=== PATIENT | male | born 1960 | race Hispanic/Latino ===

== ENCOUNTER 2020-02-06 13:24 | Observation (INO) | payer BC ==
[~2020-02-06] VITALS: Ht 170.2 cm; Wt 80.8 kg
--- OUTSIDE RECORDS SUMMARY | 2020-02-06 13:28 | XMS REPORT | Summary of Care ---
Author Author [facility] Organization [facility] Address Unknown Phone Unavailable Care Team Providers Care Foundry Patternmaker Name Role Phone Hoang Buckner MD PCP Reason for Visit * Reason Comments Follow Up * Consult, Test & Treat (Routine) Referred By Contact Referred To Contact Status Reason Specialty Diagnoses / Procedures Iain Nichole NP [address], [address] [address] Iain Nichole NP [facility] [address] [address] Authorized Surgical Diagnoses Oncology / Malignant neoplasm Hematology and of jejunum Oncology 3 week fu P rocedures DC OFFICE CONSULTATION NEW/ESTAB PATIENT 60 MIN ESTABLISHED OFFICE VISIT Encounter Details Care Team Description Date Type Department Iain Nichole NP [address], [address] [id number] Follow Up 12/15/2019 Office Visit [facility] [address], [address] [phone] Allergies No Known Allergiesdocumented as of this encounter (statuses as of 12/16/2019) Medications End Date Status Medication Sig Dispensed Refills Start Date Active carvedilol (COREG) 12.5 Take 12.5 mg 0 08/06/201 MG tabletIndications: by mouth. 8 Jejunal adenocarcinoma (HCCode) Active omeprazole (PRILOSEC) 20 Take 1 Cap by 30 Cap 3 12/17/201 MG capsule mouth daily. 9 Active zolpidem (AMBIEN) 10 MG Take 1 Tab by 30 Tab 1 tablet mouth nightly 0 as needed for Sleep. 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 Chemotherapy-induced nausea 02/27/[address] 02/26/2017 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 documented as of this encounter Last Filed Vital Signs Reading Time Taken Comments Vital Sign 132/80 12/15/2019 12:23 PM UNPAID INTERN Blood Pressure 87 12/15/2019 12:23 PM UNPAID INTERN Pulse 37.2 C (98.9 F) 12/15/2019 12:23 PM UNPAID INTERN Temperature - - Respiratory Rate - - Oxygen Saturation - - Inhaled Oxygen Concentration 85.3 kg (188 lb) 12/15/2019 12:23 PM UNPAID INTERN Weight 167.6 cm (5' 6") 12/15/2019 12:23 PM UNPAID INTERN Height 30.34 12/15/2019 12:23 PM UNPAID INTERN Body Mass Index documented in this encounter Patient Instructions * Patient Instructions* Elizabet Buckner RN - 12/15/2019 11:30 AM UNPAID INTERN [facility] SECTION OF ONCOLOGY/HEMATOLOGY [phone] FAX [phone] Please note that all labs and or imaging results will be discussed at the next o ffice visit unless told otherwise. if a problem occurs after hours please contact our office and have physician solution professional paged [phone] Patient Instructions: (to be completed before next visit) Next visit in 4 weeks please do both Kapil and Alexo together Please don't hesitate to call if you have any questions or concerns before your appt. TELL US ABOUT YOUR EXPERIENCE You may receive an email or letter from [facility] via our partn er, Marcial Nunes. This is a survey about your experience today. Your feedback is important to us so we can improve. If any question does not apply to your visit, please leave it blank. Our goal is to ensure you have an exceptional experience at [facility] patricia. If for any reason you cannot rate your experience as very good, pl ease let a member of our staff know so we can make immediate improvements. Best Regards, Elizabet Buckner RN ID INTERN documented in this encounter Progress Notes * Michael Navarro MD - 12/15/2019 11:30 AM UNPAID INTERN Oncology Consult Reason for Consultation:jejunal carcinoma with metastatic disease. History of Present Illness:59y.o. man who presented to medical attention wit h complaints of epigastric pains relieved with vomiting and with unintentional w eight loss. Evaluation and interventions were not relieving his symptoms, until an upper GI series revealed persistent narrowing at the jejunum. On 01/29/17, Dr Eleno Morrell performed an exploratory laparotomy and small bowel resection, re moving what turned out to be an adenocarcinoma, primary to the jejunum. Pertinen t pathologic features include: wsqw-[id number]-[id number] differentiated histology; tumo r involvement in 3 of 7 examined nodes; both LV and PN invasions. The tumor was also found to be proficient in MMR proteinsby IHC, thus having an LANCE phenotyp e. On 02/13/17, the patient presented for medical oncology recommendations. Adjuvant recommendations were made with CAPEOX. He underwent baseline CT surveillance imaging on 03/06/17, which did not reveal evidence of cancer. With C3 of therapy, the patient had intense bloating and diarrhea. Capecitabin e was held; Lomotil and Imodium used and the symptoms improved. He resumed the therapy at 2+2 tablets (from 3+3) with better tolerance. He did have neuropathy that was progressive, necessitating dose reduction of the oxaliplatin with later cycles of therapy, and elimination entirely from C8. CT imaging for surveillance on 08/28/17 showed there was TIGRE but that a PVT deve loped, and for this, he initiated treatment on enoxaparin. Imaging in summer revealed peritoneal recurrence. Case was referred to Bon[facility] GONZALEZ and consensus was for treatment with peritoneal stripping and with HIPEC. He was so treated by Dr North Luong 07/24/18, and surgery was intended to be definit savi. Immediately post-op, CT imaging was only remarkable for peritracheal nodes, and these could be reactive.Subsequent CT on 09/15/18 found these to have res olved.His next CT was 11/14/18. While there was TIGRE, he had developed b/l PE a nd Xarelto therapy was started. He reported progressive bloating pain and thus his imaging was repeated early, o n 01/12/19. TIGRE was noted.This was the case for some subsequent evaluations. CT imaging on 07/28/19 demonstrated recurrent disease. This was with several live r lesions as well as a perirectal lesion. Kidney stone also was noted.When dis cussing on 08/05/19, discussed the option for systemic therapy to resume with FOL FIRI.However, the patient decided not to pursue therapy. He has good understan ding of implications of his decision. His next CT was 11/03/19 and this did show further disease progression. 12/15/2019: He consulted with Dr Dick today, came up with a thorough symptom management plan. Comfortable with plan for pain management and also nausea. Has regular BM. Cancer Diagnosis: Jejunal adenocarcinoma Cancer Treatment history: Surgical resection, 01/29/17 Adjuvant CAPEOX chemotherapy, C1D1 on 03/13/17. With C3 onward, capecibine dose changed to 2+2. With C7, oxaliplatin 50% dose reduced and held C8. Last dose was 08/07/17. Peritoneal stripping and with HIPEC 07/24/18 Review of Systems: Gen: See HPI Resp: No shortness of breath or wheezing. No cough or sputum. Cardio: No chest pain. No palpitations. No leg swelling. GI: See HPI Psych: Mood is appropriate All other systems reported as negative on ROS. Past Medical History: Past Medical History: Diagnosis Date Gastric cancer (HCCode) Port-A-Cath in place 09/30/2019 Past Surgical History: Past Surgical History: Procedure Laterality Date HX CHOLECYSTECTOMY 01/03/2017 HX SMALL INTESTINE SURGERY 01/29/2017 jejunum HX STOMACH SURGERY Social history: Social History Socioeconomic History Marital status: Spouse name: Not on file Number of children: Not on file Years of education: Not on file Highest education level: Not on file Occupational History Not on file Social Needs Financial resource strain: Not on file Food insecurity: Worry: Not on file Inability: Not on file Transportation needs: Medical: Not on file Non-medical: Not on file Tobacco Use Smoking status: Never Smoker Smokeless tobacco: Never Used Substance and Sexual Activity Alcohol use: No Drug use: No Sexual activity: Not on file Comment: , 3 children Lifestyle Physical activity: Days per week: Not on file Minutes per session: Not on file Stress: Not on file Relationships Social connections: Talks on phone: Not on file Gets together: Not on file Attends shinto service: Not on file Active member of club or organization: Not on file Attends meetings of clubs or organizations: Not on file Relationship status: Not on file Intimate partner violence: Fear of current or ex partner: Not on file Emotionally abused: Not on file Physically abused: Not on file Forced sexual activity: Not on file Other Topics Concerns: Not on file Social History Narrative Not on file Family history: No family history on file. No Known Allergies Current Outpatient Medications Medication Sig Dispense Refill carvedilol (COREG) 12.5 MG tablet Take 12.5 mg by mouth. fentanyl (DURAGESIC) 25 MCG/HR patch Place 25 mcg onto the skin every [address] 10 Patch 0 hydrocodone-acetaminophen (NORCO) 10-325 MG per tablet Take 1 Tab by mouth e very 4 hours as needed for Pain. 180 Tab 0 olanzapine (ZYPREXA) 2.5 MG tablet Take 1 Tab by mouth nightly. 30 Tab 3 omeprazole (PRILOSEC) 20 MG capsule Take 1 Cap by mouth daily. 30 Cap 3 ondansetron (ZOFRAN) 4 MG tablet Take 1 Tab by mouth every 6 hours as needed for Nausea. 90 Tab 3 zolpidem (AMBIEN) 10 MG tablet Take 1 Tab by mouth nightly as needed for Sle ep. 30 Tab 1 No current facility-administered medications for this visit. Physical Exam: Vital Signs Height: 5' 6" (167.6 cm) Weight - Scale: 188 lb (85.3 kg) Temp: 98.9 F (37.2 C) Temp Source: Oral Pulse: 87 Resting Heart Rate: 87 BP: 132/80 Patient Position: Sitting Cuff Size: regular BP Location: left arm Oxygen Therapy O2 Sat: 97 % O2 Flow Rate: Room Air Height and Weight BSA (Calculated - sq m): 1.99 sq meters BMI (Calculated): 30.4 Predicted Body Weight: 140.65 Body surface area is 1.99 meters squared. Wt Readings from Last 3 Encounters: 12/15/19 188 lb (85.3 kg) 12/15/19 188 lb 3.2 oz (85.4 kg) 11/25/19 193 lb (87.5 kg) ECO General: Alert, well appearing, no acute distress. Abdomen: Bowel sounds are normoactive.No palpable masses.S/NT/ND. No palpa ble nodularity Labs:All laboratory, radiology, and pathology studies have been reviewed. Assessment 59y.o. year old man underwent resection of a small bowel (jejunal) carcinoma o n 01/29/17. He completed adjuvant chemotherapy.Recurrence in 2018wastreated with peritoneal stripping + HIPEC. In July,, imaging again shows that there is recurrence, in the kenisha-rectal region as well as throughout the liver, and other peritoneal sites as well.This is not a curable recurrence and the p rognosis has been discussed. Chemotherapy, initially with FOLFIRI, is recommende d.He declines this, and thus focus has been on palliation. Management thus in conjunction with Dr Dick. Plan Jejunal carcinoma, metastatic recurrence - He is deferringchemotherapy - He consults with Dr Dick for symptomatic care This diagnosis and rationale for recommendations were reviewed with the patient to his apparent understanding and agreement.RTC 1 month to reassess symptoms; encouraged to call or MyChart message with anyquestions or concerns in the in terim. Michael Navarro MD, FACP [facility] #[id number] [employer] participation specialist [facility]ctor [facility] ID INTERN documented in this encounter Plan of Treatment Care Team Description Date Type Specialty Michael Navarro MD [address] [place] [address] [phone] 01/12/2020 Office Visit Hematology and Oncology Clover Dick MD [address] [place], [place] [phone] 01/12/2020 Office Visit Palliative Care 12, [facility] Chair [address], [address] [place], [place] [phone] 01/12/2020 Appointment Infusion Center Health Maintenance Due Date Last Done Comments TETANUS SHOT (ADULT) 1974 BMI FOLLOW UP PLAN 1977 HEPATITIS C SCREENING 1977 HIV SCREENING 1977 FLU VACCINE > 6 MONTHS 06/18/2019 08/07/2017 (Declined) COLON CANCER SCREENIN03/10/2022 03/10/2019 COLONOSCOPY documented as of this encounter Results Not on filedocumented in this encounter Visit Diagnoses Diagnosis Jejunal cancer (HCCode) - Primary Malignant neoplasm of jejunum Liver metastases (HCCode) Secondary malignant neoplasm of liver Peritoneal metastases (HCCode) Secondary malignant neoplasm of retroperitoneum and peritoneum documented in this encounter Insurance Type Payer Benefit Subscriber ID Effective Phone Address Plan / Dates Group [employer] [facility] BLUE xxxxxxxxxxxx 2018-P [address] [place] [id number] [facility] [facility] [id number] BCBS documented as of this encounter
--- OUTSIDE RECORDS SUMMARY | 2020-02-06 13:28 | XMS REPORT | Summary of Care ---
Author Author [facility] Organization [facility] Address Unknown Phone Unavailable Care Team Providers Care Emergency Room Physician Name Role Phone Hoang Buckner MD PCP Eleno Morrell MD Unavailable Reason for Referral * Infusion Clinic (Routine) Referred By Contact Referred To Contact Status Reason Specialty Diagnoses / Procedures Michael Navarro MD [address], [address] [place] [address] [facility] [address] [place] [address], [address] [place] [address] Pending New Treatment Infusion Center Diagnoses Infusion Jejunal cancer (HCCode) P rocedures [place] OFFICE OUTPATIENT NEW 30 MINUTES [place] DEXAMETHASONE SODIUM PHOS [place] - INJECTION, PALONOSETRON HCL, 25 MCG [place] FOSAPREPITANT 1 MG INJ [place] IRINOTECAN INJECTION [place] LEUCOVORIN CALCIUM INJECTION [place] FLUOROURACIL INJECTION [place] IRRIG IMPLANTED DRUG DELIVERY DEVICE * (Routine) Referred By Contact Referred To Contact Status Reason Specialty Diagnoses / Procedures Michael Navarro MD [address], [address] [place] [address] Pending Diagnoses Jejunal cancer (HCCode) P rocedures IR PORT PLACEMENT EQUAL OR > 5 YEARS Reason for Visit * Reason Comments Cancer * Consult, Test & Treat (Routine) Referred By Contact Referred To Contact Status Reason Specialty Diagnoses / Procedures Michael Navarro MD [address], [address] [place] [address] Michael Navarro MD [address] [place] [address] St 7th Floor, [address] [place] [address] Patient Oncology / Diagnoses Responsible Hematology and fu with scans Oncology fu with scans fu with scans, per bump list 07/22/19 P rocedures ESTABLISHED OFFICE VISIT EXT Encounter Details Care Team Description Date Type Department Michael Navarro MD [address] [facility] 7th Floor, [address] [place] [address] Cancer 08/05/2019 Office Visit [facility] Víctor Mancilla [facility] [address] [facility] 7th Floor, [address] [place] [address] Allergies No Known Allergiesdocumented as of this encounter (statuses as of 08/08/2019) Medications End Date Status Medication Sig Dispensed Refills Start Date Active carvedilol (COREG) 12.5 Take 12.5 mg 0 MG tabletIndications: by mouth. 8 Jejunal adenocarcinoma (HCCode) Active mirtazapine (REMERON) 15 Take 1 Tab by 30 Tab 0 201 MG tabletIndications: mouth 8 Jejunal adenocarcinoma nightly. (HCCode) Active metoclopramide (REGLAN) Take 1 Tab by 120 Tab 0 10 MG tablet mouth four 8 times daily. Active omeprazole (PRILOSEC) 20 Take 1 Cap by 30 Cap 3 MG capsule mouth daily. 9 Active Na Sulfate-K Sulfate-Mg [SUPREP] Take 1 Bottle 0 Sulf (SUPREP BOWEL PREP as directed. 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 Chemotherapy-induced nausea 02/27/[address] 02/26/2017 Jejunal cancer (HCCode) 02/13/2017 Cancer Staging: Pathologic: Stage IIIA (T3, N1, cM0) - Signed by Michael Navarro MD on 02/14/2017 documented as of this encounter (statuses as of 08/08/2019) Social History Date Tobacco Use Types Packs/Day [...] Signs Reading Time Taken Comments Vital Sign 148/74 08/05/2019 3:01 PM CDT Blood Pressure 69 08/05/2019 3:01 PM CDT Pulse 36.7 C (98 F) 08/05/2019 3:01 PM CDT Temperature - - Respiratory Rate - - Oxygen Saturation - - Inhaled Oxygen Concentration 89.3 kg (196 lb 12.8 oz) 08/05/2019 3:01 PM CDT Weight 167.6 cm (5' 6") 08/05/2019 3:01 PM CDT Height 31.76 08/05/2019 3:01 PM CDT Body Mass Index documented in this encounter Patient Instructions * Patient Instructions* Michael Navarro MD - 08/05/2019 4:00 PM CDT [facility] SECTION OF ONCOLOGY/HEMATOLOGY [phone] FAX [phone] Please note that all labs and or imaging results will be discussed at the next o ffice visit unless told otherwise. If a problem occurs after normal business hours, over the weekend, or on a holid ay, please contact our office at [phone] and have the physician golf tournament consultant pag ed. Patient Instructions: (to be completed before next visit) - [place]resson for pain prescribed - Will schedule chemotherapy; please review information Please go over mediport model Please give information about 5FU and irinotecan Please schedule mediport Please don't hesitate to call or to send a [employer] message if you have any quest ions or concerns before your next visit. [employer] messaging should only be used for non-urgent questions. MyChart is not checked after normal business hours, n or on weekends or holidays. Thank you, Michael Navarro MD documented in this encounter Progress Notes * Michael Navarro MD - 08/05/2019 4:00 PM CDT Oncology Consult Reason for Consultation:Surveillance for a jejunal carcinoma. History of Present Illness:59y.o. man who presented [...] the jejunum. Pertinen t pathologic features include: xeea-bd-yphalvnvdn differentiated histology; tumo r involvement in 3 [...] necessitating dose reduction of the oxaliplatin with late r cycles of therapy, and elimination entirely from [...] repeated early, o n 01/12/19. TIGRE was noted. This was the case for some subsequent evaluations. CT imaging on 07/28/19 demonstrated recurrent disease. This was with several live r lesions as well as a perirectal lesion. Kidney stone also was noted. 08/05/19:His imaging was focus of discussion and the images were reviewed with the patient. He notes he has had pain in the abdomen, upper and with some radiat ion. Twice, he has also felt this to be a spasm or twisting internally. No relat ion to food or bowels. No benefit from tramadol. Nothing causes the pain to bruna fest. Cancer Diagnosis: Jejunal adenocarcinoma Cancer Treatment history: Surgical resection, 01/29/17 Adjuvant CAPEOX chemotherapy, C1D1 on 03/13/17. With C3 onward, capecibine dose changed to 2+2. With C7, oxaliplatin 50% dose reduced and held C8. Last dose wa s 08/07/17. Peritoneal stripping and with HIPEC 07/24/18 Review of Systems: Gen: No fevers, chills, sweats, fatigue, weakness. HENT: No sore throat or mouth sores. No runny nose, sinus congestion, or ear ache. Eyes: No blurring of vision or visual changes. Neck: No new lumps or masses. Resp: No shortness of breath or wheezing. No cough or sputum. Cardio: No chest pain. No palpitations. No leg swelling. GI: See HPI : No dysuria or problems with urination. MS: No bone pain or joint stiffness. No arm swelling or edema. Skin: No new rashes, lumps or bumps. Neuro: No focal weaknes or altered sensation. Heme: No bleeding or easy bruisability. No adenopathy. Psych: Mood is better All other systems reported as negative on ROS. Past Medical History: Past Medical History: Diagnosis Date Gastric cancer (HCCode) Past Surgical History: Past Surgical History: Procedure [...] file Gets together: Not on file Attends baptist service: Not on file Active member of [...] MG tablet Take 12.5 mg by mouth. metoclopramide (REGLAN) 10 MG tablet Take 1 Tab by mouth four times daily. 1 20 Tab 0 mirtazapine (REMERON) 15 MG tablet Take 1 Tab by mouth nightly. 30 Tab 0 Na Sulfate-K Sulfate-Mg Sulf (SUPREP BOWEL PREP KIT) 17.5-3.13-1.6 GM/177ML SOLN [SUPREP] Take as directed. 1 Bottle 0 omeprazole (PRILOSEC) 20 MG capsule Take 1 Cap by mouth daily. 30 Cap 3 No current facility-administered medications for this visit. Physical Exam: There is no height or weight on file to calculate BSA. Wt Readings from Last 3 Encounters: 04/22/19 197 lb (89.4 kg) 02/05/19 195 lb (88.5 kg) 01/21/19 194 lb (88 kg) ECO General: Alert, well appearing, no acute distress. Abdomen: Bowel sounds are normoactive. No palpable masses. S/NT/ND. No palpable masses or organomegally Eyes : Conjunctivae and lids normal. The sclera is clear and anicteric Heart : Regular rate and rhythm, normal S1 and S2. No murmurs, gallops, or rubs. No extra sounds. Lungs : Normal respiratory effort. There is normal air entry with normal breath sounds. No rales, rhonchi, rubs or wheezes. Extr: No varicosities or ulceration. No clubbing, cyanosis, or edema. Skin : Warm and dry No rashes, lesions or ulcerations. Head : Normocephalic, atraumatic, no alopecia. ENT : No oral lesions. Oropharynx shows no mucositis, erythema or exudate Neck : Supple. No cervical adenopathy. Nodes : No axillary, supraclavicular, or cervical lymphadenopathy. Neurologic: The patient is oriented to time, place, and person. Muscle tone is n ormal.The gait was normal and there were no difficulties in coordination. Psych : Appropriate affect and behavior. Thought content is normal. Labs:All laboratory, radiology, and pathology studies have been reviewed. Assessment 59y.o. year old man underwent resection of a small bowel (jejunal) carcinoma o n 01/29/17. He completed adjuvant chemotherapy.Recurrence in 2018 was treated w ith peritoneal stripping + HIPEC. In July,, imaging again shows that t here is recurrence, in the kenisha-rectal region as well as throughout the liver. T his is not a curable recurrence and the prognosis was focus of discussion. Chemo therapy, initially with FOLFIRI, is recommended. Plan Jejunal carcinoma, metastatic recurrence -Recommend FOLFIRI; written drug information provided - Refer for mediport - Will plan to obtain TEMPUS testing and to obtain relevant tumor testing at [facility] t time This diagnosis and rationale for recommendations were reviewed with the patient to his apparent understanding and agreement.RTCto begin therapy;encouraged to call or MyChart message with anyquestions or concerns in the interim. Michael Navarro MD, FACP [facility] #[id number] Stable Handlighter Víctor Gilliland [facility] Cancer [facility] documented in this encounter Plan of Treatment Care Team Description Date Type Specialty Gen Vaughn MD [address] [address] [phone] 08/18/2019 Office Visit Gastroenterology Michael Navarro MD [address] [facility] 7th Floor, [address] [place] [address] [phone] 08/26/2019 Office Visit Hematology and Oncology Vickie Baird MD [address] [facility] [address] [place] [address] [phone] 09/04/2019 Office Visit Neurology Order Schedule Name Type Priority Associated Diagnoses 1 Occurrences starting 08/05/2019 until 08/05/2020 IR PORT PLACEMENT EQUAL Imaging Routine Jejunal cancer (HCCode) OR > 5 YEARS Order Schedule Name Type Priority Associated Diagnoses Ordered: 08/05/2019 AMB REF TO INFUSION Outpatient Routine Jejunal cancer (HCCode) CENTER Referral Health Maintenance Due Date Last Done Comments [...] metastases (HCCode) Secondary malignant neoplasm of liver Cancer associated pain Neoplasm related pain (acute) (chronic) documented in this encounter Insurance Type Payer Benefit Subscriber ID Effective Phone Address Plan / Dates Group [facility] BLUE [facility] BLUE xxxxxxxxxxxx 2018-P [address] resent [id number] [facility] [address] BCBS documented as of this encounter
--- OUTSIDE RECORDS SUMMARY | 2020-02-06 13:28 | XMS REPORT | Summary of Care ---
Author Author [facility] Organization [facility] Address Unknown Phone Unavailable Care Team Providers Care Senior Cyber Security Analyst Name Role Phone Hoang Buckner MD PCP Eleno Morrell MD Unavailable Reason for Visit * Reason Comments Follow Up * Consult, Test & Treat (Routine) Referred By Contact Referred To Contact Status Reason Specialty Diagnoses / Procedures Hoang Buckner MD [address] [place] [address] Michael Navarro MD [address], [address] [address] Closed Oncology / Diagnoses Hematology and Malignant neoplasm Oncology of small intestine, unspecified Malignant neoplasm of jejunum f/u in 3 weeks P rocedures [place] OFFICE OUTPATIENT VISIT 15 MINUTES ESTABLISHED OFFICE VISIT Encounter Details Care Team Description Date Type Department Michael Navarro MD [address], [address] [place], [place] [id number] Follow Up 08/26/2019 Office Visit [facility] Víctor Gilliland [facility] [address], [address] [place] [address] Allergies No Known Allergiesdocumented as of this encounter (statuses as of 08/29/2019) Medications End Date Status Medication Sig Dispensed Refills Start Date Active carvedilol (COREG) 12.5 Take 12.5 mg 0 08/06/201 MG tabletIndications: by mouth. 8 Jejunal adenocarcinoma (HCCode) Active mirtazapine (REMERON) 15 Take 1 Tab by 30 Tab 0 MG tabletIndications: mouth 8 Jejunal adenocarcinoma nightly. [...] as of this encounter (statuses as of 08/29/2019) Active Problems Problem Noted Date Goals of care, counseling/discussion 08/26/2019 Liver metastases [...] as of this encounter (statuses as of 08/29/2019) Social History Date Tobacco Use Types Packs/Day [...] Signs Reading Time Taken Comments Vital Sign 151/82 08/26/2019 1:51 PM CDT Blood Pressure 71 08/26/2019 1:51 PM CDT Pulse 36.7 C (98 F) 08/26/2019 1:51 PM CDT Temperature - - Respiratory Rate - - Oxygen Saturation - - Inhaled Oxygen Concentration 89.1 kg (196 lb 6.4 oz) 08/26/2019 1:51 PM CDT Weight - - Height 31.7 08/05/2019 3:01 PM CDT Body Mass Index documented in this encounter Patient Instructions * Patient Instructions* iMchael Navarro MD - 08/26/2019 2:00 PM CDT [facility] SECTION OF ONCOLOGY/HEMATOLOGY [phone] FAX [phone] Please note that all labs and or imaging results will be discussed at the next o ffice visit unless told otherwise. If a problem occurs after normal business hours, over the weekend, or on a holid ay, please contact our office at [phone] and have the physician education courses sales representative pag ed. Patient Instructions: (to be completed before next visit) - follow up in one month and can restart chemotherapy when ready Please don't hesitate to call or to send a [employer] message if you have any quest ions or concerns before your next visit. MyChart messaging should only be used for non-urgent questions. MyChart is not checked after normal business hours, n or on weekends or holidays. Thank you, Michael Navarro MD documented in this encounter Progress Notes * Michael Navarro MD - 08/26/2019 2:00 PM CDT Oncology Consult Reason for Consultation:Surveillance [...] the jejunum. Pertinen t pathologic features include: cyaf-ca-fbcmnwxhvr differentiated histology; tumo r involvement in 3 [...] perirectal lesion. Kidney stone also was noted. When disc ussing on 08/05/19, discussed the option for systemic therapy to resume with FOLF IRI. 08/26/19:The patient was set to begin therapy but he cancelled. In discussion linh cook he is fine. He has a good understanding about his disease but he notes he h as certain things he wants to do, and wants to defer therapy in the interim. Cancer Diagnosis: Jejunal adenocarcinoma Cancer Treatment history: [...] easy bruisability. No adenopathy. Psych: Mood is good All other systems reported as negative on [...] file Gets together: Not on file Attends mandaen service: Not on file Active member of [...] for this visit. Physical Exam: Vital Signs Weight - Scale: 196 lb 6.4 oz (89.1 kg) Temp: 98 F (36.7 C) Temp Source: Oral Pulse: 71 Resting Heart Rate: 71 BP: 151/82 Patient Position: Sitting Cuff Size: regular BP Location: left arm Oxygen Therapy O2 Sat: 99 % O2 Flow Rate: Room Air Pain Assessment Pain Scale: 0 Body surface area is 2.04 meters squared. Wt Readings from Last 3 Encounters: 08/26/19 196 lb 6.4 oz (89.1 kg) 08/05/19 196 lb 12.8 oz (89.3 kg) 04/22/19 197 lb (89.4 kg) ECO General: Alert, well appearing, no [...] n 01/29/17. He completed adjuvant chemotherapy.Recurrence in 2017 was treated w ith peritoneal stripping + HIPEC. In July,, imaging again shows that t here is recurrence, in the kenisha-rectal region as well as throughout the liver. T his is not a curable recurrence and the prognosis was focus of discussion. Chemo therapy, initially with FOLFIRI, is recommended. The patient is deferring his treatment. In consultation, he understands what the need is but also he is concerned about toxicity. It seems unlikely he will do c hemotherapy. His wants him to; will continue to discuss. Plan Jejunal carcinoma, metastatic recurrence -Recommend FOLFIRI; written drug information provided - He is deferring - Will follow closely, encourage him to start if he is amenable - Will plan to obtain TEMPUS testing and to obtain relevant tumor testing at miguel t time This diagnosis and rationale for recommendations were reviewed with the patient to his apparent understanding and agreement.RTC1 month;encouraged to call or [employer] message with anyquestions or concerns in the interim. Michael Navarro MD, [facility] #[id number] Cadastral Surveyormicrowave technician Víctor Gilliland [facility] documented in this encounter Plan of Treatment Care Team Description Date Type Specialty Vickie Baird MD [address] [facility] [address] [place] [address] [phone] 09/04/2019 Office Visit Neurology Michael Navarro MD [address] [facility] 7th Floor, [address] [place] [address] [phone] 09/23/2019 Office Visit Hematology and Oncology Michael Navarro MD [address] [facility] 7th Floor, [address] [place] [address] [phone] 09/30/2019 Office Visit Hematology and Oncology Health Maintenance Due Date Last Done Comments [...] metastases (HCCode) Secondary malignant neoplasm of liver Goals of care, counseling/discussion Other specified counseling documented in this encounter Insurance Type Payer Benefit Subscriber ID Effective Phone Address Plan / Dates Group [facility] [place] [employer] BLUE [employer] BLUE xxxxxxxxxxxx 2018-P [address] resent [id number] [facility] - [phone] [facility] documented as of this encounter
--- OUTSIDE RECORDS SUMMARY | 2020-02-06 13:28 | XMS REPORT ---
Author Author [facility] Address Unknown Phone Unavailable Care Team Providers Care Huc Ob Name Role Phone JAVONGeorges DuenasON Unavailable Unavailable Madi VAUGHN Unavailable Unavailable ANDREAS LUONG Unavailable Unavailable SYSTEM, NOT IN PROVIDER Unavailable Unavailable ADRIÁN MORRELL Unavailable Unavailable Problems This patient has no known problems. Allergies, Adverse Reactions, Alerts This patient has no known allergies or adverse reactions. Medications This patient has no known medications. Results Test Description Test Time Test Comments Text Results Atomic Results Result Comments CT, ABDOMEN 2019-11-03 11:34:00 Please compare to prior imaging FINAL REPORT CT of the abdomen with and without contrast, CT of chest and pelvis with contrast Clinical History: Jejunal cancer Technique: CT of the abdomen is performed without IV contrast, followed by CT of chest, abdomen and pelvis performed with intravenous contrast administration and without oral contrast administration. This exam was performed according to our departmental dose optimization program which includes automated exposure control, adjustment of the mA and/or kV according to patient's size and/or use of iterative reconstructive technique. Comparison Film: July 28, 2019, April 17, 2019, November 14, 2018 Discussion: Visualized thyroid gland is normal. There is a right-sided Port-A-Cath. No supraclavicular, axillary, mediastinal or hilar lymphadenopathy. Heart and pericardium are unremarkable. Mild scarring or atelectasis is present in both lungs. No new mass or consolidation. Central airways are patent. Multiple liver masses are compatible with metastasis, significantly progressed since the previous exam. A lesion at the dome adjacent to IVC for example, has grown from 1.5 cm to 3 cm. No biliary ductal dilatation. Status post cholecystectomy. The spleen, pancreas, are unremarkable. There is a 1 cm nodule abutting the left adrenal gland, which has become progressively larger compared to multiple prior studies, likely also metastatic deposit. Kidne ys demonstrate no mass or hydronephrosis. There is a 4 mm nonobstructive stone in the right kidney. No evidence of bowel obstruction. Patient is status post right hemicolectomy. Scattered foci of fat necrosis are again noted adjacent to the colon. In the pelvis, bladder is decompressed, prostate gland is marginally prominent. A centrally low density soft tissue nodule between the rectum and seminal vesicles has continued to grow, and now measures 3.1 x 2.7 cm, compared to 2.3 x 1.7 cm previously. No ascites. There are shotty nonspecific mesenteric lymph nodes. There is moderate vascular calcification. Osseous structures demonstrate degenerative changes. No destructive bony lesion is identified. There is a small left sided fat-containing flank hernia. Impression: Interval progression of hepatic, and pelvic metastatic deposits. A slowly growing 1 cm nodule abutting the left adrenal gland is likely metastatic as well. No new disease identified in the thorax. 4 mm nonobstructive stone in the right kidney. Signed: Shadi Mereditheport Verified Date/Time: 11/03/2019 11:34:46 Reading Location: [address] Ortho Consult Reading Room , CHEST, WITH IV CONTRAST 2019-11-03 11:34:00 Please compare to prior imaging FINAL REPORT CT of the abdomen with and without contrast, CT of chest and pelvis with contrast Clinical History: Jejunal cancer Technique: CT of the abdomen is performed without IV contrast, followed by CT of chest, abdomen and pelvis performed with intravenous contrast administration and without oral contrast administration. This exam was performed according to our departmental dose optimization program which includes automated exposure control, adjustment of the mA and/or kV according to patient's size and/or use of iterative reconstructive technique. Comparison Film: July 28, 2019, April 17, 2019, November 14, 2018 Discussion: Visualized thyroid gland is normal. There is a right-sided Port-A-Cath. No supraclavicular, axillary, mediastinal or hilar lymphadenopathy. Heart and pericardium are unremarkable. Mild scarring or atelectasis is present in both lungs. No new mass or consolidation. Central airways are patent. Multiple liver masses are compatible with metastasis, significantly progressed since the previous exam. A lesion at the dome adjacent to IVC for example, has grown from 1.5 cm to 3 cm. No biliary ductal dilatation. Status post cholecystectomy. The spleen, pancreas, are unremarkable. There is a 1 cm nodule abutting the left adrenal gland, which has become progressively larger compared to multiple prior studies, likely also metastatic deposit. Kidne ys demonstrate no mass or hydronephrosis. There is a 4 mm nonobstructive stone in the right kidney. No evidence of bowel obstruction. Patient is status post right hemicolectomy. Scattered foci of fat necrosis are again noted adjacent to the colon. In the pelvis, bladder is decompressed, prostate gland is marginally prominent. A centrally low density soft tissue nodule between the rectum and seminal vesicles has continued to grow, and now measures 3.1 x 2.7 cm, compared to 2.3 x 1.7 cm previously. No ascites. There are shotty nonspecific mesenteric lymph nodes. There is moderate vascular calcification. Osseous structures demonstrate degenerative changes. No destructive bony lesion is identified. There is a small left sided fat-containing flank hernia. Impression: Interval progression of hepatic, and pelvic metastatic deposits. A slowly growing 1 cm nodule abutting the left adrenal gland is likely metastatic as well. No new disease identified in the thorax. 4 mm nonobstructive stone in the right kidney. Signed: Shadi Meredith MDReport Verified Date/Time: 11/03/2019 11:34:46 Reading Location: [address] Ortho Consult Reading Room -CREATININE 2019-11-03 09:49:00 POC-CREATININE (LINDA) (test wees=0473) 1.0 mg/dL 0.6-1.3 TESTED AT [facility] [address] [facility] [address] [facility] [address] POC-EGFR (BEAKER) (test cnba=8730) 76 mL/min/1.73M2 ANG, CV ACCESS, [id number] 19:02:00IR PORT PLACEMENT.Reason for Exam:-> C17.1FINAL REPORT PROCEDURE: Venous Port Placement CLINICAL HISTORY: Malignancy [employer]INC[employer]AL: Richard Beck DO, JD COMMAND AND CONTROL SPECIALIST: Portions of this procedure were assisted by the resident/fellow/PA under the direct supervision of Richard Beck DO, JD. ANESTHESIA: Conscious sedation was provided by radiology nursing using constant hemodynamic monitoring for 45 Minutes. Versed IV 1 mg, Fentanyl IV 50 mcg. DEVICE: Bard single lumen slim 6 Fr PowerPort. DOSE INFORMATION - Quinn,r: 23.3 mGy Estimated Blood Loss: < 5cc Samples: None. PROCEDURE: The risks, benefits, and alternatives to the procedure were discussed with the patient. All questions were answered and written informed consent was obtained. A universal timeout was performed prior to starti ng the procedure. For Prevention of Central Venous Catheter (CVC)-Related Blood stream Infections all elements of maximal sterile barrier technique, hand hygien e, skin preparation and sterile ultrasound techniques were followed. Ultrasound of the right internal jugular vein demonstrated a patent and compressible vessel . An ultrasound image of the vessel was obtained. Lidocaine, 1% with Epi, was us ed for cutaneous anesthesia. Under ultrasound guidance the vessel was accessed w ith a micropuncture set upsized to a 0.035 inch 3J wire which was positioned in the inferior vena cava. Over the wire a Peel-Away sheath was placed. I next dire cted my attention to the anterior chest wall which was anesthetized with 2% lido malachi. Below the clavicle a small linear incision was made with a #15 blade and a subcutaneous pocket was created with blunt and sharp dissection. The catheter was connected to the port and the port was placed in the pocket. Through the poc ket a subcutaneous track was created with a metallic tunneling device and the po rt catheter was brought through the incision and out the venotomy site. The cath eter was cut to the appropriate length. Through the Peel-Away sheath the port ca theter was positioned with its tip at the right atrium under fluoroscopic guidan ce. The Peel-Away sheath was removed. The port was accessed and demonstrated exc ellent blood return and flushed easily. The port was instilled with 5 mL of hepa rin at 100 units per mL. The incision was then closed with 4-0 Vicryl subcuticul ar/deep suture. The skin at the venotomy site and the incision site were subsequ ently closed with Dermabond, Steri-Strips and sterile dressings. The patient arlene erated the procedure well and was returned to the holding area in stable conditi on. IMPRESSION:1. Patent right internal jugular vein. 2. Ultrasound and fluoro scopically guided placement of a right internal jugular single lumen port. The p ort is ready for use immediately. Signed: Richard Beck MDReport Verified Date/T larissa: 08/24/2019 19:02:58 Reading Location: [facility] P048 Angio Body Reading Room HROMBIN TIME/[id number] 10:36:00* Test Item Value Reference Range Comments PROTIME (BEAKER) (test xupj=340) 12.8 seconds 11.9-14.2 INR (BEAKER) (test fnyr=114) 1.0 <=5.9 Effective 04/15/2019: PT Reference Range ChangeNew: 11.9-14.2 Previous: 11.7-14. 7RECOMMENDED COUMADIN/WARFARIN INR THERAPY RANGESSTANDARD DOSE: 2.0-3.0 Include s: PROPHYLAXIS for venous thrombosis, systemic embolization; TREATMENT for venou s thrombosis and/or pulmonary embolus.HIGH RISK: Target INR is 2.5-3.5 for patie nts wiht mechanical heart valves.CBC W/PLT COUNT & AUTO [id number] 10:10:00* Test Item Value Reference Range Comments WHITE BLOOD CELL COUNT (BEAKER) (test cqrp=576) 5.0 K/ L 3.5-10.5 RED BLOOD CELL COUNT (BEAKER) (test ezne=185) 4.60 M/ L 4.63-6.08 HEMOGLOBIN (BEAKER) (test woyb=671) 13.6 GM/DL 13.7-17.5 HEMATOCRIT (BEAKER) (test gfqv=750) 41.6 % 40.1-51.0 MEAN CORPUSCULAR VOLUME (BEAKER) (test ltdk=952) 90.4 fL 79.0-92.2 MEAN CORPUSCULAR HEMOGLOBIN (BEAKER) (test tjlh=517) 29.6 pg 25.7-32.2 MEAN CORPUSCULAR HEMOGLOBIN CONC (BEAKER) (test jrfy=062) 32.7 GM/DL 32.3-36.5 RED CELL DISTRIBUTION WIDTH (BEAKER) (test qied=767) 13.1 % 11.6-14.4 PLATELET COUNT (BEAKER) (test kyqo=919) 169 K/CU MM 150-450 MEAN PLATELET VOLUME (BEAKER) (test hzqs=016) 9.5 fL 9.4-12.4 NUCLEATED RED BLOOD CELLS (BEAKER) (test tmma=105) 0 /100 WBC 0-0 NEUTROPHILS RELATIVE PERCENT (BEAKER) (test bpzv=192) 48 % LYMPHOCYTES RELATIVE PERCENT (BEAKER) (test xvgm=013) 37 % MONOCYTES RELATIVE PERCENT (BEAKER) (test sqqi=280) 9 % EOSINOPHILS RELATIVE PERCENT (BEAKER) (test tdux=606) 5 % BASOPHILS RELATIVE PERCENT (BEAKER) (test utjt=836) 1 % NEUTROPHILS ABSOLUTE COUNT (BEAKER) (test xqsv=531) 2.42 K/ L 1.78-5.38 LYMPHOCYTES ABSOLUTE COUNT (BEAKER) (test hpyg=449) 1.86 K/ L 1.32-3.57 MONOCYTES ABSOLUTE COUNT (BEAKER) (test tzqn=996) 0.47 K/ L 0.30-0.82 EOSINOPHILS ABSOLUTE COUNT (BEAKER) (test gnwl=655) 0.24 K/ L 0.04-0.54 BASOPHILS ABSOLUTE COUNT (BEAKER) (test dymr=129) 0.03 K/ L 0.01-0.08 IMMATURE GRANULOCYTES-RELATIVE PERCENT (BEAKER) (test typo=9418) 0 % 0-1 CT, CHEST, WITH IV [id number] 09:18:00Due in three months, repeated surveillance for jejunal cancer with met, now STEVEN.FINAL REPORT CT of the chest, with contrast 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 This exam was performed according to our departmental dose optimization program which includes automated exposure control, adjustment of the mA and/or kV according to patient's size and/or use of iterative reconstructive technique. Comparison Film: April 17, 2019, January 12, 2019 Discussion: Visualized thyroid gland is unremarkable. No supraclavicular, axillary, mediastinal or hilar lymphadenopathy. Heart and kenisha cardium are unremarkable. There is minimal scarring/atelectasis in both lungs. N o mass or consolidation. No bronchiectasis, or bronchial wall thickening. No eff usion. Liver is mildly fatty. Status post cholecystectomy. No biliary ductal dil atation. There are five new hypoenhancing liver lesions, ranging between 1.6 cm to 2.2 cm. Spleen, pancreas, adrenal glands are unremarkable. Kidneys demonstrat e no mass or hydronephrosis. There is a nonobstructive 4 mm stone at the lower p ole of the right kidney. Status post right hemicolectomy. No evidence of bowel o bstruction, or abnormal bowel wall thickening. There is colonic diverticulosis. Scattered foci of fat necrosis are seen adjacent to the colon. In the pelvis, bl adder is decompressed. Prostate and seminal vesicles are unremarkable. There is a larger soft tissue nodule between the rectum and seminal vesicles, now measuri ng 2.3 x 1.7 cm previously measuring 1.9 x 1.8 cm, also suspicious for metastati c deposit. There is no ascites. Moderate to severe vascular calcification. An se en is the fat-containing left flank hernia. Osseous structures demonstrate degen erative changes. No suspicious bony lesion is identified. Impression: Interval development of five hypoenhancing liver lesions, highly suspicious for metastasi s. Continued growth of a pelvic soft tissue nodule, compatible with metastatic p rogression. No new disease identified in the thorax. Nonobstructive 4 mm stone i n the right kidney. Signed: Shadi Meredith MDReport Verified Date/Time: 07/28/2019 09 :18:43 Reading Location: [facility] [id number] Ortho Consult Reading Room Electron [facility] signed by: SHADI MEREDITH M.D. 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 This exam was performed according to our departmental dose optimization program which includes automated exposure control, adjustment of the mA and/or kV according to patient's size and/or use of iterative reconstructive technique. Comparison Film: April 17, 2019, January 12, 2019 Discussion: Visualized thyroid gland is unremarkable. No supraclavicular, axillary, mediastinal or hilar lymphadenopathy. Heart and pericardium are unremarkable. There is minimal scarring/atelectasis in both lungs. No mass or consolidation. No bronchiectasis, or bronchial wall thickening. No effusion. Liver is mildly fatty. Status post cholecystectomy. No biliary ductal dil atation. There are five new hypoenhancing liver lesions, ranging between 1.6 cm to 2.2 cm. Spleen, pancreas, adrenal glands are unremarkable. Kidneys demonstrat e no mass or hydronephrosis. There is a nonobstructive 4 mm stone at the lower p ole of the right kidney. Status post right hemicolectomy. No evidence of bowel o bstruction, or abnormal bowel wall thickening. There is colonic diverticulosis. Scattered foci of fat necrosis are seen adjacent to the colon. In the pelvis, bl adder is decompressed. Prostate and seminal vesicles are unremarkable. There is a larger soft tissue nodule between the rectum and seminal vesicles, now measuri ng 2.3 x 1.7 cm previously measuring 1.9 x 1.8 cm, also suspicious for metastati c deposit. There is no ascites. Moderate to severe vascular calcification. An se en is the fat-containing left flank hernia. Osseous structures demonstrate degen erative changes. No suspicious bony lesion is identified. Impression: Interval development of five hypoenhancing liver lesions, highly suspicious for metastasi s. Continued growth of a pelvic soft tissue nodule, compatible with metastatic p rogression. No new disease identified in the thorax. Nonobstructive 4 mm stone i n the right kidney. Signed: Shadi Meredith MDReport Verified Date/Time: 07/28/2019 09 :18:43 Reading Location: [address] Ortho Consult Reading Room Electron ically signed by: SHADI MEREDITH M.D. on 07/28/2019 09:18 AM POCT-CREATININE 2019-07-28 07:26:00* Test Item Value Reference Range Comments POC-CREATININE (BEAKER) (test uxry=1305) 1.0 mg/dL 0.6-1.3 TESTED AT [place] [id number] [facility] [address] POC-EGFR (BEAKER) (test suji=4811) 76 mL/min/1.73M2 TISSUE [id number] 11:23:00Surgical Pathology Report Case: [id number] Authorizing Provider: Gen Vaughn MD Collected: 03/10/2019 1111 Ordering Location: [facility] Received: 03/10/2019 1336 SERVICES Pathologist: Kaylin Conway MD Specimens: A) - Small Bowel, NOS, FOREIGN BODY REMOVED, ? PATHOLOGY B) - Biopsy, Jejunum, BX C) - Duodenum, BX D) - Stomach, BX E) - Polyp, Colon - Cecum, POLYP TAKEN BY JUMBO FRCP F) - Biopsy, Terminal Ileum, BX G) - Colon Biopsy, Random, BX H) - Polyp, Colon - Sigmoid, POLYP TAKEN BY HOT SNARE A. SMALL BOWEL, BIOPSY: - DUODENAL MUCOSA WITH PRESERVED VILLOUS ARCHITECTURE, MILD INCREASE IN INTRAEPITHELIAL LYMPHOCYTES ( SEE COMMENT)B. JEJUNUM, BIOPSY: - JEJUNAL MUCOSA WITH PRESERVED VILLOUS ARCHITECTUREC. DUODENUM, BIOPSY: - DUODENAL MUCOSA WITH PRESERVED VILLOUS ARCHITECTURE - NO SIGNIFICANT HISTOPATHOLOGICAL CHANGED. STOMACH, BIOPSY: - BODY AND ANTRUM TYPE MUCOSA WITH REACTIVE GASTROPATHY - SEPARATE FRAGMENT OF INTESTINAL TYPE MUCOSA PRESENT - SEE COMMENT - WARTHIN-STARRY STAIN NEGATIVE FOR H. PYLORI-LIKE ORGANISMS - IMMUNOHISTOCHEMICAL STAIN FOR H. PYLORI IS NEGATIVE E. CECUM POLYP, JUMBO FORCEPS BIOPSY: - TUBULAR ADENOMAF. TERMINAL ILEUM, BIOPSY: - ILEAL MUCOSA WITH PRESERVED VILLOUS ARCHITECTURE - NO SIGNIFICANT HISTOPATHOLOGICAL CHANGEG. COLON, RANDOM BIOPSY: - COLONIC MUCOSA WITH NO SIGNIFICANT HISTOPATHOLOGICAL CHANGEH. SIGMOID COLON POLYP, HOT SNARE POLYPECTOMY: - TRADITIONAL SERRATED ADENOMA - CAUTERIZED EDGE IS FOCALLY POSITIVE OF LOW GRADE DYSPLASIA SJ/pl Signing P athologist Direct Phone Line: [phone] signed by Kaylin Conway MD on 03/12/2019 at 11:23 AMPart A. The features can occur in mild celiac disease as well as other diverse settings such as other food sensitivities, humoral im mune deficiencies, morbid obesity, infectious enteritis, Helicobacter pylori gas tritis, drugs and autoimmune disorders; however, no specific cause is evident in many cases. Clinical correlation is recommended. No parasite or dysplasia noted Part A-D, E, G : Negative for dysplasiaPart G: no features of microscopic coliti s noted.34874 x8; 29312 x1; 22254 x1A. Small bowel, NOS, foreign body removed ? Pathology; B. Jejunum biopsy; C. Duodenum biopsy; D. Stomach biopsy; E. Cecum po lyp; F. Terminal ileum biopsy; G. Random colon biopsy; H. Sigmoid colon polypPar t A is received labeled "small bowel" and consists of three irregular fragments of adamson-brown tissue aggregating to 1.0 x 0.4 x 0.2 cm. The specimen is filtered and is submitted in toto in cassette A.Part B is received labeled "jejunum biops y" and consists of two irregular fragments of adamson-brown tissue aggregating to 0. 5 x 0.3 x 0.2 cm. The specimen is filtered and is submitted in toto in cassette B. Part C is received labeled "duodenum" and consists of two irregular fragments of adamson-brown tissue aggregating to 0.6 x 0.3 x 0.3 cm. The specimen is filtered and is submitted in toto in cassette C. Part D is received labeled "sotmach" and consists of three irregular fragments of adamson-brown tissue aggregating to 0.7 x 0.2 x 0.2 cm. The specimen is filtered and is submitted in toto in cassette D .Part E is received labeled "cecum polyp" and consists of a 0.5 x 0.4 x 0.3 cm t an-brown polypoid tissue. The specimen is filtered and is submitted in toto in c assette E. Part F is received labeled "terminal ileum biopsy" and consists of ir regular fragments of adamson-pink tissue aggregating to 1.3 x 0.2 x 0.2 cm. The spec imen is filtered and is submitted in toto in cassette F.Part G is received label ed "colon biopsy" and consists of multiple fragments of adamson-brown tissue aggrega ting to 2.0 x 0.4 x 0.3 cm. The specimen is filtered and is submitted in toto in cassette G. Part H is received labeled "sigmoid colo polyp" and consists of a 0 .9 x 0.5 x 0.4 cm adamson-pink polypoid tissue. The base of the polyp is inked black and the specimen is bisected and submitted entirely in cassette H. AH/plPerform edThe interpretation of this case included the use of immunohistochemistry or sp ecial stains. Immunohistochemistry technical testing was performed at [facility] where it was developed and its perf ormance characteristics were determined. It has not been cleared or approved by the U.S. Food and Drug Administration. The FDA has determined that such clearanc e or approval is not necessary. The test is used for clinical purposes. It shoul d not be regarded as investigational or for research. This laboratory is certifi ed under the Clinical Laboratory Improvement Amendments of 1988 (CLIA-88) as shantanu lified to perform high complexity clinical laboratory testing.CT, PELVIS, WITH IV [id number] 10:48:00FINAL REPORT EXAMINATION: CT of the chest, abdomen and pelvis with and without contrast. TECHNIQUE: Spiral CT images of the chest, abdomen and pelvis were performed from the lung apices to the lesser trochanters before and after the intravenous administration of 150 cc of Omnipaque 300 and the oral administration of water. CT images of the chest and pelvis were performed postcontrast. CT images of the abdomen were performed in precontrast, arterial, venous and delayed phases. Coronal and sagittal reformatted images were obtained. 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 Now with pain and obstructive symptoms DISCUSSION: CHEST: LINES/TUBES: None. LUNGS AND AIRWAYS: Stable bilateral lower lobe, lingular and right middle lobe linear opacities consistent with scarring.No pulmonary nodules, masses or consolidation.Central airways are clear, without endobronchial lesions.Previously visualized filling defects consistent with pulmonary emboli are not seen in the current exam. PLEURA: The pleural spaces are clear. HEART AND MEDIASTINUM: Thyroid is unremarkable. Heart size is normal. No pericardial effusion. Aorta is nonaneurysmal. Atherosclerotic calcification of the coronary arteries and thoracic aortic arch. LYMPH NODES: No mediastinal, hilar or axill freya adenopathy. BONES AND SOFT TISSUES: No bony destructive lesions. No soft ti ssue abnormalities. ABDOMEN/PELVIS: HEPATOBILIARY: Decreased attenuation of th e hepatic parenchyma compared to the spleen, consistent with steatosis. No focal hepatic lesions. No intra or extrahepatic biliary ductal dilation. GALLBLADDER: Cholecystectomy clips. SPLEEN: No splenomegaly. PANCREAS: No focal masses or ductal dilatation. ADRENALS: No adrenal nodules. KIDNEYS/URETERS: Stable 4-5 mm nonobstructing calculus in the right inferior pole (precontrast image 39).No other renal or ureteral calculi, hydronephrosis or obstruction. Stable 0.9 cm p artially exophytic fluid density lesion in the left inferior pole (venous image 105), consistent with a simple cyst. Stable 2.6 cm left peripelvic cyst (delayed image 50).. PELVIC ORGANS/BLADDER: Bladder is decompressed but grossly unremark able. Prostate is unremarkable. PERITONEUM/RETROPERITONEUM: No free air or fluid . Stable 0.7 cm nodule anterior to the left edgar of the diaphragm (previously me asured 1.3 x 0[address] dated August 06, 2018). LYMPH NODES: No intra-abdom inal,retroperitoneal, pelvic or inguinal lymphadenopathy. VESSELS: The celiac tr unk,superior and inferior mesenteric and bilateral renal arteries are patent T he portal, superior mesenteric and splenic veins are patent. Atherosclerotic fab cification of the abdominal aorta, aortic branches and bilateral iliac vessels. GI TRACT: Stable postoperative changes consistent with right colectomy, with int act anastomotic suture. No wall thickening, dilation or evidence of obstruction. No pericolonic inflammatory changes. Scattered diverticula are noted in the sig moid colon, with the largest measuring approximately 1.5 cm in diameter (coronal image 54), stable since prior exam. BONES AND SOFT TISSUES: No aggressive lytic lesions. Degenerative disc changes in the thoracic and lumbosacral spine. Stable 2.1 cm fat-containing anterior abdominal wall hernia (venous image 127). IMPRE SSION: 1. Stable postoperative changes, without evidence of dilation or obstruc tion. 2. Stable subcentimeter node anterior to the left edgar of the diaphragm. N o other adenopathy or evidence of metastatic disease in the chest, abdomen or pe lvis. 3. Stable 4-5 mm nonobstructing calculus in the right inferior pole. 4. Pr eviously visualized bilateral pulmonary emboli are not seen in the current exam, however, exam is not tailored for evaluation of pulmonary emboli. 5. Hepatic st eatosis. Signed: Mahesh Hernandez MDR[facility] Verified Date/Time: 01/12/2019 10:48: 45 , CHEST, WITH IV [id number] 10:48:00FINAL REPORT EXAMINATION: CT of the chest, abdomen and pelvis with and without contrast. TECHNIQUE: Spiral CT images of the chest, abdomen and pelvis were performed from the lung apices to the lesser trochanters before and after the intravenous administration of 150 cc of Omnipaque 300 and the oral administration of water. CT images of the chest and pelvis were performed po stcontrast. CT images of the abdomen were performed in precontrast, arterial, ve nous and delayed phases. Coronal and sagittal reformatted images were obtained. 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 Now with pain and obstructive symptoms DISCUSSION: CHEST: LINES/TUBES: None. LUNGS AND AIRWAYS: Stable bilateral lower lobe, li ngular and right middle lobe linear opacities consistent with scarring.No pulmon freya nodules, masses or consolidation.Central airways are clear, without endobron chial lesions.Previously visualized filling defects consistent with pulmonary em boli are not seen in the current exam. PLEURA: The pleural spaces are clear. HEA RT AND MEDIASTINUM: Thyroid is unremarkable. Heart size is normal. No pericardia l effusion. Aorta is nonaneurysmal. Atherosclerotic calcification of the coronar y arteries and thoracic aortic arch. LYMPH NODES: No mediastinal, hilar or axill freya adenopathy. BONES AND SOFT TISSUES: No bony destructive lesions. No soft ti ssue abnormalities. ABDOMEN/PELVIS: HEPATOBILIARY: Decreased attenuation of th e hepatic parenchyma compared to the spleen, consistent with steatosis. No focal hepatic lesions. No intra or extrahepatic biliary ductal dilation. GALLBLADDER: Cholecystectomy clips. SPLEEN: No splenomegaly. PANCREAS: No focal masses or ductal dilatation. ADRENALS: No adrenal nodules. KIDNEYS/URETERS: Stable 4-5 mm nonobstructing calculus in the right inferior pole (precontrast image 39).No other renal or ureteral calculi, hydronephrosis or obstruction. Stable 0.9 cm p artially exophytic fluid density lesion in the left inferior pole (venous image 105), consistent with a simple cyst. Stable 2.6 cm left peripelvic cyst (delayed image 50).. PELVIC ORGANS/BLADDER: Bladder is decompressed but grossly unremark able. Prostate is unremarkable. PERITONEUM/RETROPERITONEUM: No free air or fluid . Stable 0.7 cm nodule anterior to the left edgar of the diaphragm (previously me asured 1.3 x 0.[address] dated August 06, 2018). LYMPH NODES: No intra-abdom inal,retroperitoneal, pelvic or inguinal lymphadenopathy. VESSELS: The celiac tr unk,superior and inferior mesenteric and bilateral renal arteries are patent T he portal, superior mesenteric and splenic veins are patent. Atherosclerotic fab cification of the abdominal aorta, aortic branches and bilateral iliac vessels. GI TRACT: Stable postoperative changes consistent with right colectomy, with int act anastomotic suture. No wall thickening, dilation or evidence of obstruction. No pericolonic inflammatory changes. Scattered diverticula are noted in the sig moid colon, with the largest measuring approximately 1.5 cm in diameter (coronal image 54), stable since prior exam. BONES AND SOFT TISSUES: No aggressive lytic lesions. Degenerative disc changes in the thoracic and lumbosacral spine. Stable 2.1 cm fat-containing anterior abdominal wall hernia (venous image 127). IMPRE SSION: 1. Stable postoperative changes, without evidence of dilation or obstruc tion. 2. Stable subcentimeter node anterior to the left edgar of the diaphragm. N o other adenopathy or evidence of metastatic disease in the chest, abdomen or pe lvis. 3. Stable 4-5 mm nonobstructing calculus in the right inferior pole. 4. Pr eviously visualized bilateral pulmonary emboli are not seen in the current exam, however, exam is not tailored for evaluation of pulmonary emboli. 5. Hepatic st eatosis. Signed: Mahesh Hernandez MDReport Verified Date/Time: 01/12/2019 10:48: 44 , ABDOMEN, WITHOUT / WITH IV [id number] 10:48:00FINAL REPORT EXAMINATION: CT of the chest, abdomen and pelvis with and without contrast. TECHNIQUE: Spiral CT images of the chest, abdomen and pelvis were performed from the lung apices to the lesser trochanters before and after the intravenous administration of 150 cc of Omnipaque 300 and the oral administration of water. CT images of the chest and pelvis were performed po stcontrast. CT images of the abdomen were performed in precontrast, arterial, ve nous and delayed phases. Coronal and sagittal reformatted images were obtained. 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 Now with pain and obstructive symptoms DISCUSSION: CHEST: LINES/TUBES: None. LUNGS AND AIRWAYS: Stable bilateral lower lobe, li ngular and right middle lobe linear opacities consistent with scarring.No pulmon freya nodules, masses or consolidation.Central airways are clear, without endobron chial lesions.Previously visualized filling defects consistent with pulmonary em boli are not seen in the current exam. PLEURA: The pleural spaces are clear. HEA RT AND MEDIASTINUM: Thyroid is unremarkable. Heart size is normal. No pericardia l effusion. Aorta is nonaneurysmal. Atherosclerotic calcification of the coronar y arteries and thoracic aortic arch. LYMPH NODES: No mediastinal, hilar or axill freya adenopathy. BONES AND SOFT TISSUES: No bony destructive lesions. No soft ti ssue abnormalities. ABDOMEN/PELVIS: HEPATOBILIARY: Decreased attenuation of th e hepatic parenchyma compared to the spleen, consistent with steatosis. No focal hepatic lesions. No intra or extrahepatic biliary ductal dilation. GALLBLADDER: Cholecystectomy clips. SPLEEN: No splenomegaly. PANCREAS: No focal masses or ductal dilatation. ADRENALS: No adrenal nodules. KIDNEYS/URETERS: Stable 4-5 mm nonobstructing calculus in the right inferior pole (precontrast image 39).No other renal or ureteral calculi, hydronephrosis or obstruction. Stable 0.9 cm p artially exophytic fluid density lesion in the left inferior pole (venous image 105), consistent with a simple cyst. Stable 2.6 cm left peripelvic cyst (delayed image 50).. PELVIC ORGANS/BLADDER: Bladder is decompressed but grossly unremark able. Prostate is unremarkable. PERITONEUM/RETROPERITONEUM: No free air or fluid . Stable 0.7 cm nodule anterior to the left edgar of the diaphragm (previously me asured 1.3 x 0.[address] dated August 06, 2018). LYMPH NODES: No intra-abdom inal,retroperitoneal, pelvic or inguinal lymphadenopathy. VESSELS: The celiac tr unk,superior and inferior mesenteric and bilateral renal arteries are patent T he portal, superior mesenteric and splenic veins are patent. Atherosclerotic fab cification of the abdominal aorta, aortic branches and bilateral iliac vessels. GI TRACT: Stable postoperative changes consistent with right colectomy, with int act anastomotic suture. No wall thickening, dilation or evidence of obstruction. No pericolonic inflammatory changes. Scattered diverticula are noted in the sig moid colon, with the largest measuring approximately 1.5 cm in diameter (coronal image 54), stable since prior exam. BONES AND SOFT TISSUES: No aggressive lytic lesions. Degenerative disc changes in the thoracic and lumbosacral spine. Stable 2.1 cm fat-containing anterior abdominal wall hernia (venous image 127). IMPRE SSION: 1. Stable postoperative changes, without evidence of dilation or obstruc tion. 2. Stable subcentimeter node anterior to the left edgar of the diaphragm. N o other adenopathy or evidence of metastatic disease in the chest, abdomen or pe lvis. 3. Stable 4-5 mm nonobstructing calculus in the right inferior pole. 4. Pr eviously visualized bilateral pulmonary emboli are not seen in the current exam, however, exam is not tailored for evaluation of pulmonary emboli. 5. Hepatic st eatosis. Signed: Mahesh Hernandez MDReport Verified Date/Time: 01/12/2019 10:48: 45 -[id number] 08:26:00* Test Item Value Reference Range Comments POC-CREATININE (BEAKER) (test kdig=3373) 0.9 mg/dL 0.6-1.3 TESTED AT [place] [id number] POC-EGFR (BEAKER) (test nbwg=9111) 86 mL/min/1.73M2 POCT-GLUCOSE [id number] 12:27:00* Test Item Value Reference Range Comments POC-GLUCOSE METER (BEAKER) (test cuxv=5580) 157 mg/dL 70-110 TESTED AT [address] [address] POCT-GLUCOSE [id number] 08:12:00* Test Item Value Reference Range Comments POC-GLUCOSE METER (BEAKER) (test njxv=4587) 117 mg/dL 70-110 TESTED AT [address] [address] POCT-GLUCOSE [id number] 21:25:00* Test Item Value Reference Range Comments POC-GLUCOSE METER (BEAKER) (test ntdv=0540) 167 mg/dL 70-110 TESTED AT [address] [address] POCT-GLUCOSE [id number] 18:14:00* Test Item Value Reference Range Comments POC-GLUCOSE METER (BEAKER) (test yret=0103) 150 mg/dL 70-110 TESTED AT [place] [address] [facility] [address] CT, CHEST, WITH [id number] 14:58:00FINAL REPORT INDICATION:58-year-old male with postoperative fevers. COMPARISON: Abdomen radiograph August 05, 2018Chest radiograph January 02, 2018[facility] facility abdomen pelvis CT exam December 21, 2016 TECHNIQUE: CT of the Chest, Abdomen and Pelvis WITH intravenous contrast. Enteric contrast was used. The exam was performed according to our department dose-optimization protocol, which includes automated exposure control, adjustments of mA and kV according to patient size. Iterative reconstructions are also sometimes employed. FINDINGS: THORAX: There is no pneumonia. Bibasilar subsegmental atelectasis is noted. Central airways are clear. No pleural effusion. Heart and pericardium are unremarkable. No mediastinal or hilar lymphadenopathy. Thyroid gland and esophagus unremarkable. ABDOMEN and PELVIS: Patient is status post partial colectomy (at the splenic flexure) with intact anastomosis. No bowel obstruction, peritoneal free fluid, wound dehiscence, or evidence of wound infection. Liver, pancreas, spleen, adrenal glands are unremarkable. There is a 4 mm calyceal stone in the lower pole of the right kidney. Bladder and prostate are unremarkable. There is a 1.3 x 0.9 cm nodule anterior to the left edgar of the diaphragm (axial image 51), it is increased in size from 0.5 cm compared to December 21, 2016. No retrope ritoneal or pelvic lymphadenopathy. There is severe calcified plaque of the dist al abdominal aorta and moderate calcified plaque of the common iliac arteries. B ONES: No suspicious osseous lesion. IMPRESSION: Recent laparotomy and resection of the splenic flexure of the colon. No evidence of postoperative complication. Specifically, no evidence of postoperative pneumonia, anastomotic leak, or bowel obstruction. 1.3 x 0.9 cm nodule anterior to the left edgar of the diaphragm. If colon surgery was for malignancy, this may represent a metastatic lymph node. R ight kidney 4 mm stone. Signed: Sidney Carlisle MDReport Verified Date/Time: 0 08/06/2018 14:58:21 Reading Location: [facility] C013X Ortho Consult Reading Room Cassy ctronically signed by: SIDNEY CARLISLE M.D. on 08/06/2018 02:[address], [id number] 14:58:00FINAL REPORT INDICATION:58-year-old male with postoperative fevers. COMPARISON: Abdomen radiograph August 05, 2018Chest radiograph January 02, 2018[facility] facility abdomen pelvis CT exam December 21, 2016 TECHNIQUE: CT of the Chest, Abdomen and Pelvis WITH intravenous contrast. Enteric contrast was used. The exam was performed according to our department dose-optimization protocol, which includes automated exposure control, adjustments of mA and kV according to patient size. Iterative reconstructions are also sometimes employed. FINDINGS: THORAX: There is no pneumonia. Bibasilar subsegmental atelectasis is noted. Central airways are clear. No pleural effusion. Heart and pericardium are unremarkable. No mediastinal or hilar lymphadenopathy. Thyroid gland and esophagus unremarkable. ABDOMEN and PELVIS: Patient is status post partial colectomy (at the splenic flexure) with intact anastomosis. No bowel obstruction, peritoneal free fluid, wound dehiscence, or evidence of wound infection. Liver, pancreas, spleen, adrenal glands are unremarkable. There is a 4 mm calyceal stone in the lower pole of the right kidney. Bladder and prostate are unremarkable. There is a 1.3 x 0.9 cm nodule anterior to the left edgar of the diaphragm (axial image 51), it is increased in size from 0.5 cm compared to December 21, 2016. No retrope ritoneal or pelvic lymphadenopathy. There is severe calcified plaque of the dist al abdominal aorta and moderate calcified plaque of the common iliac arteries. B ONES: No suspicious osseous lesion. IMPRESSION: Recent laparotomy and resection of the splenic flexure of the colon. No evidence of postoperative complication. Specifically, no evidence of postoperative pneumonia, anastomotic leak, or bowel obstruction. 1.3 x 0.9 cm nodule anterior to the left edgar of the diaphragm. If colon surgery was for malignancy, this may represent a metastatic lymph node. R ight kidney 4 mm stone. Signed: Sidney Carlisle MDReport Verified Date/Time: 0 08/06/2018 14:58:21 Reading Location: [facility] C013X Ortho Consult Reading Room Cassy ctronically signed by: SIDNEY CARLISLE M.D. on 08/06/2018 02:58 PM CBC W/PLT COUNT & AUTO [id number] 12:29:00* Test Item Value Reference Range Comments WHITE BLOOD CELL COUNT (BEAKER) (test tybl=025) 4.7 K/ L 3.5-10.5 RED BLOOD CELL COUNT (BEAKER) (test wpvb=484) 3.36 M/ L 4.63-6.08 HEMOGLOBIN (BEAKER) (test ziff=394) 10.1 GM/DL 13.7-17.5 HEMATOCRIT (BEAKER) (test uycl=264) 30.9 % 40.1-51.0 MEAN CORPUSCULAR VOLUME (BEAKER) (test fkop=223) 92.0 fL 79.0-92.2 MEAN CORPUSCULAR HEMOGLOBIN (BEAKER) (test lehl=309) 30.1 pg 25.7-32.2 MEAN CORPUSCULAR HEMOGLOBIN CONC (BEAKER) (test voex=307) 32.7 GM/DL 32.3-36.5 RED CELL DISTRIBUTION WIDTH (BEAKER) (test rsiu=795) 12.7 % 11.6-14.4 PLATELET COUNT (BEAKER) (test lyss=269) 427 K/CU MM 150-450 MEAN PLATELET VOLUME (BEAKER) (test desz=339) 9.9 fL 9.4-12.4 NUCLEATED RED BLOOD CELLS (BEAKER) (test tukb=712) 0 /100 WBC 0-0 (CELLAVISION MANUAL DIFF)2018-08-06 12:29:00* Test Item Value Reference Range Comments NEUTROPHILS - REL (CELLAVISION)(BEAKER) (test hsgn=3817) 55 % LYMPHOCYTES - REL (CELLAVISION)(BEAKER) (test gfgy=9181) 21 % MONOCYTES - REL (CELLAVISION)(BEAKER) (test wrly=9446) 10 % EOSINOPHILS - REL (CELLAVISION)(BEAKER) (test hjxp=2934) 7 % METAMYELOCYTES - REL (CELLAVISION)(BEAKER) (test ttha=2884) 1 % 0-0 MYELOCYTES - REL (CELLAVISION)(BEAKER) (test gmsp=7571) 1 % 0-0 BANDS - REL (CELLAVISION)(BEAKER) (test sdjx=3274) 5 % 0-10 ATYPICAL LYMPHOCYTES - REL (CELLAVISION)(BEAKER) (test lkcd=7458) 1 % 0-0 NEUTROPHILS - ABS (CELLAVISION)(BEAKER) (test emtc=2821) 2.59 K/ul 1.78-5.38 LYMPHOCYTES - ABS (CELLAVISION)(BEAKER) (test zrpy=0195) 0.99 K/ul 1.32-3.57 MONOCYTES - ABS (CELLAVISION)(BEAKER) (test koks=0010) 0.47 K/uL 0.30-0.82 EOSINOPHILS - ABS (CELLAVISION)(BEAKER) (test ngvl=9231) 0.33 K/uL 0.04-0.54 METAMYELOCYTES - ABS (CELLAVISION)(BEAKER) (test sste=0264) 0.05 K/uL 0.00-0.00 MYELOCYTES-ABS (CELLAVISION)(BEAKER) (test ykbj=0992) 0.05 K/uL 0.00-0.00 BANDS - ABS (CELLAVISION)(BEAKER) (test ryfr=4735) 0.24 K/uL 0.00-0.80 ATYPICAL LYMPHOCYTES - ABS (CELLAVISION)(BEAKER) (test souy=3812) 0.05 K/uL 0.00-0.00 TOTAL COUNTED (BEAKER) (test hnlb=5673) 100 SMUDGE CELLS (BEAKER) (test oqcv=0901) Present GIANT PLATELETS (BEAKER) (test smrl=870) Present MICROCYTES (BEAKER) (test nzfm=134) 1+ few PLATELET CONCENTRATION (CELLAVISION)(BEAKER) (test cmfu=4207) Adequate Received comment: User comments: Slide comments: POCT-GLUCOSE [id number] 11:49:00* Test Item Value Reference Range Comments POC-GLUCOSE METER (BEAKER) (test czym=0198) 186 mg/dL 70-110 TESTED AT [facility] [address] [facility] [address] [id number] 11:26:00* Test Item Value Reference Range Comments PHOSPHORUS (BEAKER) (test epsu=915) 3.5 mg/dL 2.3-4.7 [id number] 11:26:00* Test Item Value Reference Range Comments MAGNESIUM (BEAKER) (test grrt=601) 1.8 mg/dL 1.6-2.6 BASIC METABOLIC [id number] 11:26:00* Test Item Value Reference Range Comments SODIUM (BEAKER) (test qskj=277) 138 meq/L 136-145 POTASSIUM (BEAKER) (test knxw=525) 3.5 meq/L 3.5-5.1 CHLORIDE (BEAKER) (test ehqx=033) 104 meq/L 98-107 CO2 (BEAKER) (test rrjx=892) 26 meq/L 22-29 BLOOD UREA NITROGEN (BEAKER) (test vktg=588) 14 mg/dL 7-21 CREATININE (BEAKER) (test ikwf=441) 0.77 mg/dL 0.57-1.25 GLUCOSE RANDOM (BEAKER) (test kjgh=257) 160 mg/dL 70-105 CALCIUM (BEAKER) (test cvjb=168) 8.2 mg/dL 8.4-10.2 EGFR (BEAKER) (test vgla=5078) 103 mL/min/1.73 sq m ESTIMATED GFR IS NOT ACCURATE CREATININE CLEARANCE IN PREDICTING GLOMERULAR FILTRATION RATE. ESTIMATED GFR IS NOT APPLICABLE FOR DIALYSIS PATIENTS. POCT-GLUCOSE [id number] 08:42:00* Test Item Value Reference Range Comments POC-GLUCOSE METER (BEAKER) (test emya=1873) 128 mg/dL 70-110 TESTED AT [facility] [address] [facility] [address] POCT-GLUCOSE [id number] 21:21:00* Test Item Value Reference Range Comments POC-GLUCOSE METER (BEAKER) (test wodh=8779) 132 mg/dL 70-110 TESTED AT [facility] [address] [facility] [address] POCT-GLUCOSE [id number] 18:03:00* Test Item Value Reference Range Comments POC-GLUCOSE METER (BEAKER) (test zash=2948) 144 mg/dL 70-110 TESTED AT [place] [id number] [facility] [address] RAD, ABDOMEN/KUB, 1 VIEW [id number] 14:27:00Reason for exam:->abdominal distention, hiccupsShould this be performed at the bedside?->YesFINAL REPORT Technique: Supine radiographs of the abdomen dated 08/05/2018 History: Abdominal distention, hiccups Comparison: Abdominal ra diograph dated 07/31/2018 IMPRESSION:Abdominal drains have been removed. No air-f illed, dilated loops of bowel to suggest obstruction. No free intraperitoneal ai r. No abnormal soft tissue mass or calcification. Degenerative changes are seen in the spine. Surgical skin mariana are seen in the midline. Surgical clips are seen in the right upper quadrant. Signed: Kartik Ottoort Verified D ate/Time: 08/05/2018 14:27:13 Reading Location: [facility] Radiology Reading Room El ectronically signed by: KARTIK OTTO MD on 08/05/2018 02:27 PM POCT-GLUCOSE [id number] 13:04:00* Test Item Value Reference Range Comments POC-GLUCOSE METER (BEAKER) (test pquj=5099) 160 mg/dL 70-110 TESTED AT [address] [address] POCT-GLUCOSE [id number] 08:26:00* Test Item Value Reference Range Comments POC-GLUCOSE METER (BEAKER) (test gqvf=8897) 143 mg/dL 70-110 TESTED AT [address] [address] POCT-GLUCOSE [id number] 21:07:00* Test Item Value Reference Range Comments POC-GLUCOSE METER (BEAKER) (test bfpd=6264) 159 mg/dL 70-110 TESTED AT [place] [id number] [facility] [address] POCT-GLUCOSE [id number] 17:40:00* Test Item Value Reference Range Comments POC-GLUCOSE METER (BEAKER) (test jadx=6628) 145 mg/dL 70-110 TESTED AT [place] [id number] [facility] [address] CBC W/PLT COUNT & AUTO [id number] 15:49:00* Test Item Value Reference Range Comments WHITE BLOOD CELL COUNT (BEAKER) (test ibgx=683) 5.9 K/ L 3.5-10.5 RED BLOOD CELL COUNT (BEAKER) (test vtaw=398) 3.46 M/ L 4.63-6.08 HEMOGLOBIN (BEAKER) (test omiu=924) 10.4 GM/DL 13.7-17.5 HEMATOCRIT (BEAKER) (test aakr=835) 31.6 % 40.1-51.0 MEAN CORPUSCULAR VOLUME (BEAKER) (test zmno=162) 91.3 fL 79.0-92.2 MEAN CORPUSCULAR HEMOGLOBIN (BEAKER) (test ihzy=232) 30.1 pg 25.7-32.2 MEAN CORPUSCULAR HEMOGLOBIN CONC (BEAKER) (test xqvg=968) 32.9 GM/DL 32.3-36.5 RED CELL DISTRIBUTION WIDTH (BEAKER) (test hpgz=866) 12.6 % 11.6-14.4 PLATELET COUNT (BEAKER) (test bedf=458) 380 K/CU MM 150-450 MEAN PLATELET VOLUME (BEAKER) (test egiw=720) 10.0 fL 9.4-12.4 NUCLEATED RED BLOOD CELLS (BEAKER) (test jhex=262) 0 /100 WBC 0-0 (CELLAVISION MANUAL DIFF)2018-08-04 15:49:00* Test Item Value Reference Range Comments NEUTROPHILS - REL (CELLAVISION)(BEAKER) (test jiin=5056) 77 % LYMPHOCYTES - REL (CELLAVISION)(BEAKER) (test shim=2502) 11 % MONOCYTES - REL (CELLAVISION)(BEAKER) (test rejf=6117) 5 % EOSINOPHILS - REL (CELLAVISION)(BEAKER) (test dsrq=9620) 4 % BASOPHILS - REL (CELLAVISION)(BEAKER) (test nxak=7079) 1 % METAMYELOCYTES - REL (CELLAVISION)(BEAKER) (test ymrk=3802) 1 % 0-0 ATYPICAL LYMPHOCYTES - REL (CELLAVISION)(BEAKER) (test pinj=6368) 1 % 0-0 NEUTROPHILS - ABS (CELLAVISION)(BEAKER) (test fgee=8892) 4.54 K/ul 1.78-5.38 LYMPHOCYTES - ABS (CELLAVISION)(BEAKER) (test vbry=8886) 0.65 K/ul 1.32-3.57 MONOCYTES - ABS (CELLAVISION)(BEAKER) (test wpak=9691) 0.30 K/uL 0.30-0.82 EOSINOPHILS - ABS (CELLAVISION)(BEAKER) (test yjca=0219) 0.24 K/uL 0.04-0.54 BASOPHILS - ABS (CELLAVISION)(BEAKER) (test imtr=5809) 0.06 K/uL 0.01-0.08 METAMYELOCYTES - ABS (CELLAVISION)(BEAKER) (test hyqe=9680) 0.06 K/uL 0.00-0.00 ATYPICAL LYMPHOCYTES - ABS (CELLAVISION)(BEAKER) (test jqec=1238) 0.06 K/uL 0.00-0.00 TOTAL COUNTED (BEAKER) (test iaai=7328) 100 WBC MORPHOLOGY (BEAKER) (test dtri=074) Normal GIANT PLATELETS (BEAKER) (test ppfi=666) Present ANISOCYTOSIS (BEAKER) (test wnph=757) 1+ few MICROCYTES (BEAKER) (test iggf=492) 1+ few ELLIPTOCYTES (BEAKER) (test xsoo=329) 1+ few ARTIFACT (CELLAVISION)(BEAKER) (test atlf=7550) Present PLATELET CONCENTRATION (CELLAVISION)(BEAKER) (test okpt=5548) Adequate Received comment: User comments: Slide comments: POCT-GLUCOSE [id number] 12:28:00* Test Item Value Reference Range Comments POC-GLUCOSE METER (BEAKER) (test vzqd=5907) 143 mg/dL 70-110 TESTED AT [address] [address] C. DIFFICILE GDH [id number] 11:11:00* Test Item Value Reference Range Comments CDT TOXIN (test ciso=[id number]) Negative Negative CDT GDH ANTIGEN (test kufl=[id number]) Negative Negative No indication of Clostridium difficile infection and no colonization. Discontinue enteric isolation and therapy. Testing performed by [employer] Rapid [employer]ette Assay. For GDH, published sensitivity of the assay is 98.7% compared to cytotoxicity testing. For Toxin AB, published sensitivity is 87.8% and specificity 99.4% compared to cytotoxicity testing.Ve rification of kit performance was done by the [facility] Microbiology Lab prior to cl inical use.POCT-GLUCOSE [id number] 08:19:00* Test Item Value Reference Range Comments POC-GLUCOSE METER (BEAKER) (test qnqq=3626) 158 mg/dL 70-110 TESTED AT [facility] [address] [facility] [address] [id number] 07:51:00* Test Item Value Reference Range Comments PHOSPHORUS (BEAKER) (test wysg=813) 3.0 mg/dL 2.3-4.7 [id number] 07:51:00* Test Item Value Reference Range Comments MAGNESIUM (BEAKER) (test wqiz=774) 1.7 mg/dL 1.6-2.6 BASIC METABOLIC [id number] 07:51:00* Test Item Value Reference Range Comments SODIUM (BEAKER) (test lfvn=909) 137 meq/L 136-145 POTASSIUM (BEAKER) (test duto=131) 3.8 meq/L 3.5-5.1 CHLORIDE (BEAKER) (test qiav=736) 106 meq/L 98-107 CO2 (BEAKER) (test zcro=745) 24 meq/L 22-29 BLOOD UREA NITROGEN (BEAKER) (test ypcy=618) 18 mg/dL 7-21 CREATININE (BEAKER) (test cffc=972) 0.82 mg/dL 0.57-1.25 GLUCOSE RANDOM (BEAKER) (test rnea=929) 171 mg/dL 70-105 CALCIUM (BEAKER) (test fpzq=267) 8.6 mg/dL 8.4-10.2 EGFR (BEAKER) (test rhzn=6113) 96 mL/min/1.73 sq m ESTIMATED GFR IS NOT ACCURATE CREATININE CLEARANCE IN PREDICTING GLOMERULAR FILTRATION RATE. ESTIMATED GFR IS NOT APPLICABLE FOR DIALYSIS PATIENTS. POCT-GLUCOSE [id number] 21:22:00* Test Item Value Reference Range Comments POC-GLUCOSE METER (BEAKER) (test luin=9025) 158 mg/dL 70-110 TESTED AT [facility] [address] [facility] [address] POCT-GLUCOSE [id number] 18:18:00* Test Item Value Reference Range Comments POC-GLUCOSE METER (BEAKER) (test zook=9207) 186 mg/dL 70-110 TESTED AT [place] [id number] [facility] [address] POCT-GLUCOSE [id number] 16:42:00* Test Item Value Reference Range Comments POC-GLUCOSE METER (BEAKER) (test xkfv=2103) 147 mg/dL 70-110 TESTED AT [place] [id number] [facility] [address] HEPATIC FUNCTION [id number] 07:46:00* Test Item Value Reference Range Comments TOTAL PROTEIN (BEAKER) (test kquf=777) 6.1 gm/dL 6.0-8.3 ALBUMIN (BEAKER) (test chzq=5847) 3.1 g/dL 3.5-5.0 BILIRUBIN TOTAL (BEAKER) (test mmxg=504) 0.5 mg/dL 0.2-1.2 BILIRUBIN DIRECT (BEAKER) (test pguy=825) 0.2 mg/dL 0.1-0.5 ALKALINE PHOSPHATASE (BEAKER) (test fplr=992) 101 U/L 40-150 AST (SGOT) (BEAKER) (test kqhk=464) 29 U/L 5-34 ALT (SGPT) (BEAKER) (test rtbc=752) 50 U/L 6-55 BASIC METABOLIC [id number] 07:46:00* Test Item Value Reference Range Comments SODIUM (BEAKER) (test meyy=591) 141 meq/L 136-145 POTASSIUM (BEAKER) (test uqyz=307) 3.4 meq/L 3.5-5.1 CHLORIDE (BEAKER) (test bquu=796) 106 meq/L 98-107 CO2 (BEAKER) (test ohlv=213) 26 meq/L 22-29 BLOOD UREA NITROGEN (BEAKER) (test jzzz=265) 27 mg/dL 7-21 CREATININE (BEAKER) (test lqxg=034) 0.79 mg/dL 0.57-1.25 GLUCOSE RANDOM (BEAKER) (test tjxw=111) 107 mg/dL 70-105 CALCIUM (BEAKER) (test wlur=974) 8.9 mg/dL 8.4-10.2 EGFR (BEAKER) (test jmsf=9741) 100 mL/min/1.73 sq m ESTIMATED GFR IS NOT ACCURATE CREATININE CLEARANCE IN PREDICTING GLOMERULAR FILTRATION RATE. ESTIMATED GFR IS NOT APPLICABLE FOR DIALYSIS PATIENTS. POCT-GLUCOSE [id number] 07:44:00* Test Item Value Reference Range Comments POC-GLUCOSE METER (BEAKER) (test prxz=0345) 121 mg/dL 70-110 TESTED AT [facility] [address] [facility] [address] CBC (HEMOGRAM ONLY)2018-08-03 07:18:00* Test Item Value Reference Range Comments WHITE BLOOD CELL COUNT (BEAKER) (test qzhh=186) 5.8 K/ L 3.5-10.5 RED BLOOD CELL COUNT (BEAKER) (test fyok=843) 3.54 M/ L 4.63-6.08 HEMOGLOBIN (BEAKER) (test viam=739) 10.4 GM/DL 13.7-17.5 HEMATOCRIT (BEAKER) (test dufm=064) 33.0 % 40.1-51.0 MEAN CORPUSCULAR VOLUME (BEAKER) (test paqq=901) 93.2 fL 79.0-92.2 MEAN CORPUSCULAR HEMOGLOBIN (BEAKER) (test fvjw=797) 29.4 pg 25.7-32.2 MEAN CORPUSCULAR HEMOGLOBIN CONC (BEAKER) (test wytw=460) 31.5 GM/DL 32.3-36.5 RED CELL DISTRIBUTION WIDTH (BEAKER) (test ashk=430) 12.6 % 11.6-14.4 PLATELET COUNT (BEAKER) (test snbi=669) 292 K/CU MM 150-450 MEAN PLATELET VOLUME (BEAKER) (test fvkb=959) 10.6 fL 9.4-12.4 NUCLEATED RED BLOOD CELLS (BEAKER) (test mhcj=821) 0 /100 WBC 0-0 POCT-GLUCOSE [id number] 22:00:00* Test Item Value Reference Range Comments POC-GLUCOSE METER (BEAKER) (test txeu=4954) 133 mg/dL 70-110 TESTED AT [address] [address] POCT-GLUCOSE [id number] 21:52:00* Test Item Value Reference Range Comments POC-GLUCOSE METER (BEAKER) (test puno=3014) 130 mg/dL 70-110 TESTED AT [address] [address] POCT-GLUCOSE [id number] 12:39:00* Test Item Value Reference Range Comments POC-GLUCOSE METER (BEAKER) (test skzk=9178) 130 mg/dL 70-110 TESTED AT [address] [address] [id number] 07:44:00* Test Item Value Reference Range Comments PHOSPHORUS (BEAKER) (test idlf=447) 3.6 mg/dL 2.3-4.7 [id number] 07:44:00* Test Item Value Reference Range Comments MAGNESIUM (BEAKER) (test zirv=145) 2.0 mg/dL 1.6-2.6 BASIC METABOLIC [id number] 07:44:00* Test Item Value Reference Range Comments SODIUM (BEAKER) (test xbuy=404) 138 meq/L 136-145 POTASSIUM (BEAKER) (test lvkr=572) 3.6 meq/L 3.5-5.1 CHLORIDE (BEAKER) (test jrco=148) 106 meq/L 98-107 CO2 (BEAKER) (test jioh=104) 25 meq/L 22-29 BLOOD UREA NITROGEN (BEAKER) (test sgfz=557) 28 mg/dL 7-21 CREATININE (BEAKER) (test ybvu=186) 0.75 mg/dL 0.57-1.25 GLUCOSE RANDOM (BEAKER) (test setn=617) 129 mg/dL 70-105 CALCIUM (BEAKER) (test zzjy=883) 8.8 mg/dL 8.4-10.2 EGFR (BEAKER) (test mmuo=1313) 107 mL/min/1.73 sq m ESTIMATED GFR IS NOT ACCURATE CREATININE CLEARANCE IN PREDICTING GLOMERULAR FILTRATION RATE. ESTIMATED GFR IS NOT APPLICABLE FOR DIALYSIS PATIENTS. HEPATIC FUNCTION [id number] 07:44:00* Test Item Value Reference Range Comments TOTAL PROTEIN (BEAKER) (test xqnk=564) 6.3 gm/dL 6.0-8.3 ALBUMIN (BEAKER) (test icet=1184) 3.1 g/dL 3.5-5.0 BILIRUBIN TOTAL (BEAKER) (test vauz=100) 0.4 mg/dL 0.2-1.2 BILIRUBIN DIRECT (BEAKER) (test spmo=507) 0.3 mg/dL 0.1-0.5 ALKALINE PHOSPHATASE (BEAKER) (test emmk=867) 90 U/L 40-150 AST (SGOT) (BEAKER) (test pcus=885) 31 U/L 5-34 ALT (SGPT) (BEAKER) (test ijwd=019) 49 U/L 6-55 POCT-GLUCOSE [id number] 06:48:00* Test Item Value Reference Range Comments POC-GLUCOSE METER (BEAKER) (test vwyj=8350) 139 mg/dL 70-110 TESTED AT [facility] [address] [facility] [address] CBC (HEMOGRAM ONLY)2018-08-02 05:06:00* Test Item Value Reference Range Comments WHITE BLOOD CELL COUNT (BEAKER) (test slos=662) 7.5 K/ L 3.5-10.5 RED BLOOD CELL COUNT (BEAKER) (test wtpv=094) 3.51 M/ L 4.63-6.08 HEMOGLOBIN (BEAKER) (test sahe=027) 10.6 GM/DL 13.7-17.5 HEMATOCRIT (BEAKER) (test erht=062) 32.9 % 40.1-51.0 MEAN CORPUSCULAR VOLUME (BEAKER) (test nljm=742) 93.7 fL 79.0-92.2 MEAN CORPUSCULAR HEMOGLOBIN (BEAKER) (test wemp=988) 30.2 pg 25.7-32.2 MEAN CORPUSCULAR HEMOGLOBIN CONC (BEAKER) (test tefd=899) 32.2 GM/DL 32.3-36.5 RED CELL DISTRIBUTION WIDTH (BEAKER) (test leil=782) 13.1 % 11.6-14.4 PLATELET COUNT (BEAKER) (test xzvq=978) 297 K/CU MM 150-450 MEAN PLATELET VOLUME (BEAKER) (test jdtk=525) 10.4 fL 9.4-12.4 NUCLEATED RED BLOOD CELLS (BEAKER) (test ocou=698) 0 /100 WBC 0-0 RAD, CHEST, 1 VIEW, NON [id number] 03:54:00Reason for exam:->pulomnary edemaShould this be performed at the bedside?->YesFINAL REPORT Chest one view. Clinical history: Pulmonary edema Comparison: Chest radiograph 08/01/2018 Technique: A single frontal view of the chest was obtained. Findings: Cardiomediastinal contours are unchanged. There are improved bilateral congestive changes.There is bibasilar disc atelectasis and/or linear scarring. There is no pneumothorax or pleural effusion. There are midline abdominal skin mariana. There are surgical clips in the right upper quadrant. There is a right upper quadrant drain. There is a partially imaged catheter overlying the left upper quadrant. There is gaseous distention of the stomach. Signed: Josie Mcdaniel MDReport Verified Date/Time: 08/02/2018 03:54:30 Reading Location: [facility] C013Y CT Body Reading Room -GLUCOSE [id number] 00:17:00* Test Item Value Reference Range Comments POC-GLUCOSE METER (BEAKER) (test oyzu=9485) 145 mg/dL 70-110 TESTED AT [facility] [address] [facility] [address] POCT-GLUCOSE [id number] 17:46:00* Test Item Value Reference Range Comments POC-GLUCOSE METER (BEAKER) (test tbtv=6023) 152 mg/dL 70-110 TESTED AT [place] [id number] [facility] [address] POCT-GLUCOSE [id number] 11:28:00* Test Item Value Reference Range Comments POC-GLUCOSE METER (BEAKER) (test phqf=6856) 173 mg/dL 70-110 TESTED AT [place] [id number] [facility] [address] RAD, CHEST, 1 VIEW, NON [id number] 07:56:00Reason for exam:->respiratory failureShould this be performed at the bedside?->YesFINAL REPORT Chest one view INDICATION: Respiratory failure COMPARISON: 07/31/2018 IMPRESSION: ET and NG tube have been removed. A left jugular line extends to the right atrium. Advise retraction 3 cm. Remaining support devices are stable. The cardiomediastinal contours are stable. There are low lung volumes with right diaphragm elevation. There is prominent vascular congestion with stable mixed interstitial and airspace opacities, in part due to edema and atelectasis with suspected small pleural effusions. Superimposed pneumonitis cannot be excluded, however. No pneumothorax is seen. There is gaseous gastric distention in the left upper quadrant. Signed: Nasra Kraft MDReport Verified Date/Time: 08/01/2018 07:56:10 Reading Location: [facility] Radiology Reading Room [id number] 05:15:00* Test Item Value Reference Range Comments PHOSPHORUS (BEAKER) (test mimd=869) 2.4 mg/dL 2.3-4.7 [id number] 05:15:00* Test Item Value Reference Range Comments MAGNESIUM (BEAKER) (test rtfc=152) 2.1 mg/dL 1.6-2.6 BASIC METABOLIC [id number] 05:15:00* Test Item Value Reference Range Comments SODIUM (BEAKER) (test hsri=433) 137 meq/L 136-145 POTASSIUM (BEAKER) (test tpyg=073) 3.7 meq/L 3.5-5.1 CHLORIDE (BEAKER) (test bexj=803) 107 meq/L 98-107 CO2 (BEAKER) (test ydtp=649) 24 meq/L 22-29 BLOOD UREA NITROGEN (BEAKER) (test utmv=502) 25 mg/dL 7-21 CREATININE (BEAKER) (test wksl=072) 0.74 mg/dL 0.57-1.25 GLUCOSE RANDOM (BEAKER) (test dkff=889) 146 mg/dL 70-105 CALCIUM (BEAKER) (test mwmp=345) 8.8 mg/dL 8.4-10.2 EGFR (BEAKER) (test fsun=1624) 108 mL/min/1.73 sq m ESTIMATED GFR IS NOT ACCURATE CREATININE CLEARANCE IN PREDICTING GLOMERULAR FILTRATION RATE. ESTIMATED GFR IS NOT APPLICABLE FOR DIALYSIS PATIENTS. HEPATIC FUNCTION [id number] 05:15:00* Test Item Value Reference Range Comments TOTAL PROTEIN (BEAKER) (test mkve=186) 6.3 gm/dL 6.0-8.3 ALBUMIN (BEAKER) (test gfey=2773) 3.0 g/dL 3.5-5.0 BILIRUBIN TOTAL (BEAKER) (test tjzn=673) 0.5 mg/dL 0.2-1.2 BILIRUBIN DIRECT (BEAKER) (test tpnn=600) 0.3 mg/dL 0.1-0.5 ALKALINE PHOSPHATASE (BEAKER) (test inmu=989) 88 U/L 40-150 AST (SGOT) (BEAKER) (test ihlo=510) 38 U/L 5-34 ALT (SGPT) (BEAKER) (test hjav=595) 52 U/L 6-55 CBC (HEMOGRAM ONLY)2018-08-01 04:42:00* Test Item Value Reference Range Comments WHITE BLOOD CELL COUNT (BEAKER) (test coju=882) 5.0 K/ L 3.5-10.5 RED BLOOD CELL COUNT (BEAKER) (test eugr=890) 3.76 M/ L 4.63-6.08 HEMOGLOBIN (BEAKER) (test vgik=573) 11.2 GM/DL 13.7-17.5 HEMATOCRIT (BEAKER) (test qtss=880) 34.8 % 40.1-51.0 MEAN CORPUSCULAR VOLUME (BEAKER) (test gjsb=686) 92.6 fL 79.0-92.2 MEAN CORPUSCULAR HEMOGLOBIN (BEAKER) (test wtfi=108) 29.8 pg 25.7-32.2 MEAN CORPUSCULAR HEMOGLOBIN CONC (BEAKER) (test dkts=772) 32.2 GM/DL 32.3-36.5 RED CELL DISTRIBUTION WIDTH (BEAKER) (test yexm=238) 12.7 % 11.6-14.4 PLATELET COUNT (BEAKER) (test mtiq=582) 257 K/CU MM 150-450 MEAN PLATELET VOLUME (BEAKER) (test xiex=449) 10.1 fL 9.4-12.4 NUCLEATED RED BLOOD CELLS (BEAKER) (test wbtf=333) 0 /100 WBC 0-0 POCT-GLUCOSE [id number] 00:23:00* Test Item Value Reference Range Comments POC-GLUCOSE METER (BEAKER) (test ryql=5151) 147 mg/dL 70-110 TESTED AT [place] [address] TROPONIN [id number] 18:36:00* Test Item Value Reference Range Comments TROPONIN I (BEAKER) (test jedp=980) < ng/mL 0.00-0.03 Troponin I (TnI) levels must be interpreted in the context of the presenting sym ptoms and the clinical findings. Elevated TnI levels indicate myocardial damage, but are not specific for ischemic heart disease. Elevated TnI levels are seen in patients with other cardiac conditions (including myocarditis and congestive h eart failure), and slight TnI elevations occur in patients with other conditions , including sepsis, renal failure, acidosis, acute neurological disease, and per sistent tachyarrhythmia.POCT-GLUCOSE [id number] 17:41:00* Test Item Value Reference Range Comments POC-GLUCOSE METER (BEAKER) (test agyx=6286) 145 mg/dL 70-110 TESTED AT [place] [address] POCT-GLUCOSE [id number] 11:27:00* Test Item Value Reference Range Comments POC-GLUCOSE METER (BEAKER) (test yuls=7106) 160 mg/dL 70-110 TESTED AT [address] [address] RAD, CHEST, 1 VIEW, NON [id number] 06:26:00Reason for exam:->respiratory failureShould this be performed at the bedside?->YesFINAL REPORT Chest one view. Clinical history: respiratory failure Comparison: Chest radiograph 07/30/2018. Technique: A single frontal view of the chest was obtained. Findings:Support devices are in stable position.Cardiomediastinal contours are unchanged. There are linearly oriented opacities in the bilateral perihilar regions and lung bases compatible with subsegmental and discoid atelectasis. There is no pneumothorax or definite pleural effusion. Signed: Josie Mcdaniel Verified Date/Time: 07/31/2018 06:26:41 Reading Location: [facility] C013T Transitional Reading Room -GLUCOSE [id number] 06:21:00* Test Item Value Reference Range Comments POC-GLUCOSE METER (BEAKER) (test tymf=5411) 157 mg/dL 70-110 TESTED AT [address] [address] RAD, ABDOMEN/KUB, 1 VIEW [id number] 06:05:00Reason for exam:->abdominal distensionFINAL REPORT Abdomen one view Comparison: Abdominal radiographs 07/30/2018. Reason for exam: abdominal distension Findings:There is a feeding tube in the stomach. There are surgical drains with tips overlying the right upper and right lower quadrants.There are midline surgical skin mariana. There are surgical clips in the right upper quadrant. There is persistent gaseous distention of the small and large bowel compatible with an ileus. There are left lower lobe opacities which may represent atelectasis and/or pneumonia. Signed: Josie Mcdaniel Verified Date/Time: 07/31/2018 06:05:20 Reading Location: [facility] C013T Transitional Reading Room D GAS, [id number] 04:30:00* Test Item Value Reference Range Comments PH ARTERIAL (BEAKER) (test vioo=029) 7.41 7.35-7.45 PCO2 ARTERIAL (BEAKER) (test rrpr=451) 39 mmHg 35-45 PO2 ARTERIAL (BEAKER) (test ukyw=283) 132 mmHg 80-90 O2 SATURATION ARTERIAL (BEAKER) (test ittm=083) 98.7 % 96.0-97.0 HCO3 ARTERIAL (BEAKER) (test dynx=883) 24 mmol/L 21-29 BASE EXCESS ARTERIAL (BEAKER) (test lmar=867) -0.4 mmol/L -2.0-3.0 PATIENT TEMPERATURE (BEAKER) (test sfej=6853) 37.0 C FIO2 (BEAKER) (test uewf=0293) 50.0 % [id number] 03:57:00* Test Item Value Reference Range Comments PHOSPHORUS (BEAKER) (test wjpf=058) 3.0 mg/dL 2.3-4.7 [id number] 03:57:00* Test Item Value Reference Range Comments MAGNESIUM (BEAKER) (test llsi=135) 2.3 mg/dL 1.6-2.6 BASIC METABOLIC [id number] 03:57:00* Test Item Value Reference Range Comments SODIUM (BEAKER) (test uqus=247) 138 meq/L 136-145 POTASSIUM (BEAKER) (test upxm=435) 3.9 meq/L 3.5-5.1 CHLORIDE (BEAKER) (test aare=213) 107 meq/L 98-107 CO2 (BEAKER) (test rjum=333) 23 meq/L 22-29 BLOOD UREA NITROGEN (BEAKER) (test utop=660) 26 mg/dL 7-21 CREATININE (BEAKER) (test axlg=396) 0.70 mg/dL 0.57-1.25 GLUCOSE RANDOM (BEAKER) (test toxa=437) 159 mg/dL 70-105 CALCIUM (BEAKER) (test pvdx=518) 8.7 mg/dL 8.4-10.2 EGFR (BEAKER) (test nvki=4273) 115 mL/min/1.73 sq m ESTIMATED GFR IS NOT ACCURATE CREATININE CLEARANCE IN PREDICTING GLOMERULAR FILTRATION RATE. ESTIMATED GFR IS NOT APPLICABLE FOR DIALYSIS PATIENTS. HEPATIC FUNCTION [id number] 03:57:00* Test Item Value Reference Range Comments TOTAL PROTEIN (BEAKER) (test rgkk=082) 6.0 gm/dL 6.0-8.3 ALBUMIN (BEAKER) (test ksqd=8671) 2.8 g/dL 3.5-5.0 BILIRUBIN TOTAL (BEAKER) (test lhnr=886) 0.5 mg/dL 0.2-1.2 BILIRUBIN DIRECT (BEAKER) (test pwnh=249) 0.3 mg/dL 0.1-0.5 ALKALINE PHOSPHATASE (BEAKER) (test ijrl=952) 84 U/L 40-150 AST (SGOT) (BEAKER) (test orxx=266) 34 U/L 5-34 ALT (SGPT) (BEAKER) (test irzh=587) 52 U/L 6-55 CBC (HEMOGRAM ONLY)2018-07-31 03:45:00* Test Item Value Reference Range Comments WHITE BLOOD CELL COUNT (BEAKER) (test nkzi=082) 3.1 K/ L 3.5-10.5 RED BLOOD CELL COUNT (BEAKER) (test zknc=095) 3.59 M/ L 4.63-6.08 HEMOGLOBIN (BEAKER) (test tpbp=575) 10.6 GM/DL 13.7-17.5 HEMATOCRIT (BEAKER) (test iyun=046) 33.1 % 40.1-51.0 MEAN CORPUSCULAR VOLUME (BEAKER) (test lcky=585) 92.2 fL 79.0-92.2 MEAN CORPUSCULAR HEMOGLOBIN (BEAKER) (test ppge=170) 29.5 pg 25.7-32.2 MEAN CORPUSCULAR HEMOGLOBIN CONC (BEAKER) (test vkvy=084) 32.0 GM/DL 32.3-36.5 RED CELL DISTRIBUTION WIDTH (BEAKER) (test xzvk=077) 12.3 % 11.6-14.4 PLATELET COUNT (BEAKER) (test vzgr=809) 175 K/CU MM 150-450 MEAN PLATELET VOLUME (BEAKER) (test kmpe=962) 10.3 fL 9.4-12.4 NUCLEATED RED BLOOD CELLS (BEAKER) (test kfvo=139) 0 /100 WBC 0-0 POCT-GLUCOSE [id number] 23:57:00* Test Item Value Reference Range Comments POC-GLUCOSE METER (BEAKER) (test hymy=3091) 179 mg/dL 70-110 TESTED AT [facility] [address] [facility] [address] RAD, ABDOMEN/KUB, 1 VIEW [id number] 21:17:00Reason for exam:->s/p HIPECShould this be performed at the bedside?->YesFINAL REPORT CLINICAL HISTORY: Postop COMPARISON: None. FINDINGS: 3 supine views of the abdomen are submitted. The abdominal bowel gas pattern is nonspecific but grossly unobstructed. There were several segments of gas-distended bowel throughout the abdomen but there is is no definite focus of gas dilated large or small bowel. Enteric tube tip overlies the left upper quadrant in the expected position of the stomach. Surgical clips overlie the right upper quadrant. Bilateral abdominal surgical drains are present, terminating in the right upper quadrant and right upper pelvis. Surgical mariana overlie the midline. There is no acute bony abnormality. Patchy bibasilar opacities may reflect atelectasis but pneumonitis should be excluded clinically. Please note that a supine examination is insensitive in the detection of free intraperitoneal air. Signed: Cedric Manjarrez [facility] Verified Date/Time: 07/30/2018 21:17:46 Reading Lo cation: OQMT [employer] [facility] Reading Room [id number] 18:24:00* Test Item Value Reference Range Comments PHOSPHORUS (BEAKER) (test xtlb=596) 2.6 mg/dL 2.3-4.7 [id number] 18:24:00* Test Item Value Reference Range Comments MAGNESIUM (BEAKER) (test uaqd=517) 2.3 mg/dL 1.6-2.6 BASIC METABOLIC [id number] 18:24:00* Test Item Value Reference Range Comments SODIUM (BEAKER) (test oxgg=587) 139 meq/L 136-145 POTASSIUM (BEAKER) (test tqwb=640) 4.2 meq/L 3.5-5.1 CHLORIDE (BEAKER) (test hmzp=637) 111 meq/L 98-107 CO2 (BEAKER) (test mnmx=438) 22 meq/L 22-29 BLOOD UREA NITROGEN (BEAKER) (test eehv=803) 26 mg/dL 7-21 CREATININE (BEAKER) (test hacf=549) 0.71 mg/dL 0.57-1.25 GLUCOSE RANDOM (BEAKER) (test akxf=654) 170 mg/dL 70-105 CALCIUM (BEAKER) (test oene=850) 8.4 mg/dL 8.4-10.2 EGFR (BEAKER) (test hrxy=1576) 114 mL/min/1.73 sq m ESTIMATED GFR IS NOT ACCURATE CREATININE CLEARANCE IN PREDICTING GLOMERULAR FILTRATION RATE. ESTIMATED GFR IS NOT APPLICABLE FOR DIALYSIS PATIENTS. HEPATIC FUNCTION [id number] 18:24:00* Test Item Value Reference Range Comments TOTAL PROTEIN (BEAKER) (test mbuj=433) 5.7 gm/dL 6.0-8.3 ALBUMIN (BEAKER) (test mmli=1213) 2.6 g/dL 3.5-5.0 BILIRUBIN TOTAL (BEAKER) (test xnyl=178) 0.5 mg/dL 0.2-1.2 BILIRUBIN DIRECT (BEAKER) (test hwkr=612) 0.2 mg/dL 0.1-0.5 ALKALINE PHOSPHATASE (BEAKER) (test xffr=015) 84 U/L 40-150 AST (SGOT) (BEAKER) (test jdqo=686) 36 U/L 5-34 ALT (SGPT) (BEAKER) (test rkdz=585) 52 U/L 6-55 POCT-GLUCOSE [id number] 18:09:00* Test Item Value Reference Range Comments POC-GLUCOSE METER (BEAKER) (test rysb=3882) 160 mg/dL 70-110 TESTED AT [facility] [address] [facility] [address] RAD, CHEST, 1 VIEW, NON [id number] 16:50:00Reason for exam:->pulmonary edemaShould this be performed at the bedside?->YesFINAL REPORT Chest one view INDICATION: Pulmonary edema COMPARISON: 07/30/2018 IMPRESSION: ET tube terminates 3.5 cm above the agnes. Left jugular line extends to the right atrium. Advise retraction 4 cm. Other support hardware is grossly unchanged with abdominal skin mariana and partially imaged gaseous bowel distention. The enlarged cardiomediastinal silhouette is stable in size. There is right midlung atelectasis and/or intrafissural pleural fluid. Other lung opacities are similar and may reflect edema and atelectasis. Pneumonitis or aspiration cannot be excluded, however. Dependent pleural effusions are delong spected. No pneumothorax is seen. Signed: Nasra Kraft MDReport Verified Date/Time: 07/30/2018 16:50:53 Reading Location: [facility] C013 Consult Reading Room P M TISSUE [id number] 16:32:00Surgical Pathology Report Case: [id number] Authorizing Provider: North Luong MD Collected: 07/24/2018 1143 Ordering Location: [facility] Received: 07/24/2018 1231 SERVICES Pathologist: Irina Cook MD Specimens: A) - Omentum, Greater Omentum B) - Large Intestine, NOS, Hemicolectomy, Stictch ahmadi distal colon margin C) - Large Intestine, NOS, Large Bowel Mesenteric Nodule D) - Appendix E) - Soft Tissue, Other, Falciform A. OMENTUM, COMPLETE OMENTECTOMY: - NEGATIVE FOR MALIGNANCYB. 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 SOFT TISSUE, LARGE BOWEL MESENTERY, BIOPSY: - FIBROUS TISSUE WITH A BENIGN CYST - NEGATIVE FOR MALIGNANCYD. APPENDIX, APPENDECTOMY: - SEROSAL ADHESIONS - NEGATIVE FOR M ALIGNANCYE. 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) Histologic Grade: G2: Moderately differentiated Tumor Size: Greatest dimension in Centimeters (cm): 7 Centimeters (cm) T umor Extent: Tumor Extension: Tumor perforates the visceral peritoneu m Macroscopic Tumor Perforation: Not identified Accessory Findings: Lymphovascular Invasion: Present MARGINS Margins: All margins are uninvolved by invasive carcinoma, carcinoma in situ (high-grade dysplasia), and adenoma Margins Examined: Proximal Margins Examined: Distal Margins Examined: Radial or mesenteric Distance of Invasive Carcinoma from Closest Margin: 2.5 Centimeters (cm) Closest Margin: Radial or me senteric LYMPH NODES Number of Lymph Nodes Involved: 4 Number of Lymph N odes Examined: 17 PATHOLOGIC STAGE CLASSIFICATION (pTNM, AJCC 8th Edition) TNM Descriptors: r (recurrent) Primary Tumor (pT): pT4 Regional Lymp h Nodes (pN): pN2 Comment(s) Comment(s): 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 The total tumor dimension is th erefore (4 cm in jejunum + 3 cm in the mesentery) 7 cm. Total lymph nodes exami steven are 7 from previous excision plus 10 from the current excision. Four out of seventeen lymph nodes are positive for metastatic carcinoma. 25420 X 3; 04327; [id number]. Greater omentum. B. Panniculectomy. C. Large bowel mesenteric nodule. D. Appendix. E. Falciform tissueSpecimens are received in formalin-filled containe rs all labeled with the patient's information.Specimen A: Labeled "greater oment um" consists of an omentectomy measuring 32 x 12 x 2.5 cm in greatest dimension. No firm or suspicious areas are identified. Clinical Esthetician sections are submitt ed in A1-A10, two sections in each cassette.B. Labeled "hemicolectomy" consists of a segment of colon measuring 13.5 cm in length x 6.5 cm in circumference. The re is a stitch at one end designating the distal margin. The mesenteric fat isaac ures 10 x 9 x 3 cm. Within the mesenteric fat is a firm, well-defined, off-white to yellow mass measuring 3 x 3 x 2.5 cm located 2.5 cm from the mesenteric beatris in and 4 cm from the distal margin and 6 cm from the proximal margin. The mass s eems to be confined within the adipose tissue. The colon mucosa is unremarkable. The colon serosa is adamson-pink and dull with multiple adhesions. No other abnorma lities are seen.Ink code: Mesenteric margin-blue , mesenteric mass-blueThe adipo se tissue is sectioned yielding 12 possible small lymph nodes measuring up to 0. 3 cm.Section code: B1, proximal margin en face; B2, distal margin en face; B3, m esenteric margin perpendicular section; B4-B7, inside sales account representative of mesenteric mass and surrounding inked tissue; B8, random colon; B9-B11, four lymph nodes in each cassette; B12-B15, additional sections of adipose tissue. CG/ew C. Received [facility] for intraoperative consultation labeled "colon NOS" is a 1 x 0.9 x 0.8 cm, t an-pink to yellow, well-circumscribed, fatty nodule. The cut surface reveals radha ar fluid. The specimen is submitted entirely in cassette FSC1. MA/ewSpecimen D: Labeled "appendix" consists of an appendectomy measuring 5.5 cm in length x 0.6 cm in diameter with a mesoappendix measuring 5 x 3.5 x 1.5 cm. The serosa is adamson -red and dull with adhesionsInk code: Margin-blue.The specimen is serially secti oned showing no distinct mass. The specimen is entirely submitted as follows: D1 , margin en face with tip bisected; D2-D4, remainder of appendix from resection margin to tip.Specimen E: Labeled "falciform tissue" consists of a ligament isaac uring 7 cm in length x 0.4 cm in diameter surrounded by adipose tissue measuring 6.5 x 5 x 1 cm. Grossly no masses are seen. Clinical Esthetician sections of the liga ment and adipose tissue are submitted in E1-E3. CG/ewLARGE BOWEL, MESENTERY, NOD ULE, EXCISION: - CONSISTENT WITH BENIGN CYST - NO DEFINITIVE MALIGNANCY SEENPE RFORMEDPOCT-GLUCOSE [id number] 12:09:00* Test Item Value Reference Range Comments POC-GLUCOSE METER (TRUDYAKER) (test cgtq=3983) 165 mg/dL 70-110 TESTED AT [address] [address] POCT-GLUCOSE [id number] 06:35:00* Test Item Value Reference Range Comments POC-GLUCOSE METER (BEAKER) (test tbrk=4305) 154 mg/dL 70-110 TESTED AT [facility] [address] [facility] [address] RAD, CHEST, 1 VIEW, NON [id number] 04:50:00Reason for exam:->respiratory failureShould this be performed at the bedside?->YesFINAL REPORT RAD, CHEST, 1 VIEW, NON DEPT INDICATION: respiratory failure COMPARISON: Prior day's exam FINDINGS: Portable frontal view of the chest. IMPRESSION: Support Lines: Stable. Lungs and pleura: Stable appearance of multifocal subsegmental atelectasis. No interval development of fusion. No pneumothorax.Heart and mediastinum: Stable contours. Additional findings: None. Signed: JR Ulrich Robert MDReport Verified Date/Time: 07/30/2018 04 :50:10 Reading Location: [facility] C013Y CT Body Reading Room Electronically sig steven by: VIRIDIANA ULRICH on 07/30/2018 04:50 AM HEPATIC FUNCTION PANEL 2018-07-30 04:38:00* Test Item Value Reference Range Comments TOTAL PROTEIN (BEAKER) (test orfn=287) 5.5 gm/dL 6.0-8.3 ALBUMIN (BEAKER) (test prqm=6135) 2.6 g/dL 3.5-5.0 BILIRUBIN TOTAL (BEAKER) (test hwel=002) 0.5 mg/dL 0.2-1.2 BILIRUBIN DIRECT (BEAKER) (test fozt=351) 0.3 mg/dL 0.1-0.5 ALKALINE PHOSPHATASE (BEAKER) (test ofxt=210) 81 U/L 40-150 AST (SGOT) (BEAKER) (test kjwa=821) 39 U/L 5-34 ALT (SGPT) (BEAKER) (test tslf=869) 51 U/L 6-55 [id number] 04:37:00* Test Item Value Reference Range Comments PHOSPHORUS (BEAKER) (test smsw=523) 2.9 mg/dL 2.3-4.7 [id number] 04:37:00* Test Item Value Reference Range Comments MAGNESIUM (BEAKER) (test nepw=265) 2.1 mg/dL 1.6-2.6 BASIC METABOLIC [id number] 04:37:00* Test Item Value Reference Range Comments SODIUM (BEAKER) (test dnkm=102) 139 meq/L 136-145 POTASSIUM (BEAKER) (test hpst=384) 4.0 meq/L 3.5-5.1 CHLORIDE (BEAKER) (test odhu=309) 110 meq/L 98-107 CO2 (BEAKER) (test zblu=000) 23 meq/L 22-29 BLOOD UREA NITROGEN (BEAKER) (test wcuz=763) 23 mg/dL 7-21 CREATININE (BEAKER) (test iyoc=451) 0.71 mg/dL 0.57-1.25 GLUCOSE RANDOM (BEAKER) (test sjvu=599) 157 mg/dL 70-105 CALCIUM (BEAKER) (test oarx=818) 8.4 mg/dL 8.4-10.2 EGFR (BEAKER) (test snki=8757) 114 mL/min/1.73 sq m ESTIMATED GFR IS NOT ACCURATE CREATININE CLEARANCE IN PREDICTING GLOMERULAR FILTRATION RATE. ESTIMATED GFR IS NOT APPLICABLE FOR DIALYSIS PATIENTS. BLOOD GAS, [id number] 04:34:00* Test Item Value Reference Range Comments PH ARTERIAL (BEAKER) (test poid=941) 7.38 7.35-7.45 PCO2 ARTERIAL (BEAKER) (test rcuw=414) 41 mmHg 35-45 PO2 ARTERIAL (BEAKER) (test qrpk=091) 76 mmHg 80-90 O2 SATURATION ARTERIAL (BEAKER) (test jsyt=721) 94.7 % 96.0-97.0 HCO3 ARTERIAL (BEAKER) (test ddky=578) 24 mmol/L 21-29 BASE EXCESS ARTERIAL (BEAKER) (test gaeo=870) -0.9 mmol/L -2.0-3.0 PATIENT TEMPERATURE (BEAKER) (test viba=7473) 37.3 C FIO2 (BEAKER) (test umsh=9744) 40.0 % CBC (HEMOGRAM ONLY)2018-07-30 04:23:00* Test Item Value Reference Range Comments WHITE BLOOD CELL COUNT (BEAKER) (test kcix=770) 4.5 K/ L 3.5-10.5 RED BLOOD CELL COUNT (BEAKER) (test wxso=820) 3.29 M/ L 4.63-6.08 HEMOGLOBIN (BEAKER) (test cuwe=315) 9.9 GM/DL 13.7-17.5 HEMATOCRIT (BEAKER) (test jhvl=785) 30.3 % 40.1-51.0 MEAN CORPUSCULAR VOLUME (BEAKER) (test aqyk=136) 92.1 fL 79.0-92.2 MEAN CORPUSCULAR HEMOGLOBIN (BEAKER) (test vqxw=137) 30.1 pg 25.7-32.2 MEAN CORPUSCULAR HEMOGLOBIN CONC (BEAKER) (test ynot=795) 32.7 GM/DL 32.3-36.5 RED CELL DISTRIBUTION WIDTH (BEAKER) (test jxyp=276) 12.2 % 11.6-14.4 PLATELET COUNT (BEAKER) (test exta=116) 133 K/CU MM 150-450 MEAN PLATELET VOLUME (BEAKER) (test nknc=800) 10.2 fL 9.4-12.4 NUCLEATED RED BLOOD CELLS (BEAKER) (test mzfa=791) 0 /100 WBC 0-0 POCT-GLUCOSE [id number] 00:00:00* Test Item Value Reference Range Comments POC-GLUCOSE METER (BEAKER) (test scas=3683) 161 mg/dL 70-110 TESTED AT [address] [address] POCT-GLUCOSE [id number] 18:36:00* Test Item Value Reference Range Comments POC-GLUCOSE METER (BEAKER) (test kgdk=8592) 139 mg/dL 70-110 TESTED AT [address] [address] [id number] 16:50:00* Test Item Value Reference Range Comments PHOSPHORUS (BEAKER) (test vspl=246) 3.8 mg/dL 2.3-4.7 [id number] 16:50:00* Test Item Value Reference Range Comments MAGNESIUM (BEAKER) (test kwkr=034) 2.3 mg/dL 1.6-2.6 BASIC METABOLIC [id number] 16:50:00* Test Item Value Reference Range Comments SODIUM (BEAKER) (test yxso=234) 139 meq/L 136-145 POTASSIUM (BEAKER) (test tzmv=751) 4.4 meq/L 3.5-5.1 CHLORIDE (BEAKER) (test qugq=394) 109 meq/L 98-107 CO2 (BEAKER) (test exik=467) 27 meq/L 22-29 BLOOD UREA NITROGEN (BEAKER) (test fkga=956) 21 mg/dL 7-21 CREATININE (BEAKER) (test pknz=950) 0.69 mg/dL 0.57-1.25 GLUCOSE RANDOM (BEAKER) (test qxrp=923) 138 mg/dL 70-105 CALCIUM (BEAKER) (test hzcs=570) 8.4 mg/dL 8.4-10.2 EGFR (BEAKER) (test ourm=6228) 117 mL/min/1.73 sq m ESTIMATED GFR IS NOT ACCURATE CREATININE CLEARANCE IN PREDICTING GLOMERULAR FILTRATION RATE. ESTIMATED GFR IS NOT APPLICABLE FOR DIALYSIS PATIENTS. HEPATIC FUNCTION [id number] 16:50:00* Test Item Value Reference Range Comments TOTAL PROTEIN (BEAKER) (test smyp=497) 5.5 gm/dL 6.0-8.3 ALBUMIN (BEAKER) (test xfan=1716) 2.6 g/dL 3.5-5.0 BILIRUBIN TOTAL (BEAKER) (test oswh=226) 0.5 mg/dL 0.2-1.2 BILIRUBIN DIRECT (BEAKER) (test imqn=406) 0.3 mg/dL 0.1-0.5 ALKALINE PHOSPHATASE (BEAKER) (test thup=677) 85 U/L 40-150 AST (SGOT) (BEAKER) (test eawo=498) 45 U/L 5-34 ALT (SGPT) (BEAKER) (test adfw=105) 54 U/L 6-55 CBC (HEMOGRAM ONLY)2018-07-29 16:26:00* Test Item Value Reference Range Comments WHITE BLOOD CELL COUNT (BEAKER) (test lhgq=997) 5.6 K/ L 3.5-10.5 RED BLOOD CELL COUNT (BEAKER) (test jatd=375) 3.42 M/ L 4.63-6.08 HEMOGLOBIN (BEAKER) (test zxil=481) 10.3 GM/DL 13.7-17.5 HEMATOCRIT (BEAKER) (test lshv=388) 31.6 % 40.1-51.0 MEAN CORPUSCULAR VOLUME (BEAKER) (test djli=125) 92.4 fL 79.0-92.2 MEAN CORPUSCULAR HEMOGLOBIN (BEAKER) (test vchp=889) 30.1 pg 25.7-32.2 MEAN CORPUSCULAR HEMOGLOBIN CONC (BEAKER) (test inft=349) 32.6 GM/DL 32.3-36.5 RED CELL DISTRIBUTION WIDTH (BEAKER) (test jljl=343) 12.3 % 11.6-14.4 PLATELET COUNT (BEAKER) (test yatj=931) 121 K/CU MM 150-450 MEAN PLATELET VOLUME (BEAKER) (test dgys=813) 10.2 fL 9.4-12.4 NUCLEATED RED BLOOD CELLS (BEAKER) (test msbi=912) 0 /100 WBC 0-0 BLOOD GAS, [id number] 15:27:00* Test Item Value Reference Range Comments PH ARTERIAL (BEAKER) (test hldl=025) 7.33 7.35-7.45 PCO2 ARTERIAL (BEAKER) (test tten=276) 49 mmHg 35-45 PO2 ARTERIAL (BEAKER) (test cxkl=195) 123 mmHg 80-90 O2 SATURATION ARTERIAL (BEAKER) (test kbnr=583) 98.0 % 96.0-97.0 HCO3 ARTERIAL (BEAKER) (test xazm=859) 25 mmol/L 21-29 BASE EXCESS ARTERIAL (BEAKER) (test wpub=797) -1.4 mmol/L -2.0-3.0 PATIENT TEMPERATURE (BEAKER) (test ciph=7347) 38.0 C FIO2 (BEAKER) (test zsol=4469) 40.0 % POCT-GLUCOSE [id number] 12:23:00* Test Item Value Reference Range Comments POC-GLUCOSE METER (BEAKER) (test ctiy=8706) 140 mg/dL 70-110 TESTED AT [facility] [address] [facility] [address] POCT-GLUCOSE [id number] 06:03:00* Test Item Value Reference Range Comments POC-GLUCOSE METER (BEAKER) (test gvxk=2310) 118 mg/dL 70-110 TESTED AT [facility] [address] [facility] [address] RAD, CHEST, 1 VIEW, NON [id number] 05:44:00Reason for exam:->respiratory failureShould this be performed at the bedside?->YesFINAL REPORT RAD, CHEST, 1 VIEW, NON DEPT INDICATION: respiratory failure COMPARISON: Prior day's exam FINDINGS: Portable frontal view of the chest. IMPRESSION: Support Lines: Stable. Lungs and pleura: Improved aeration. Persistent linear subsegmental atelectasis bilaterally. Small left effusion. No visible pneumothorax.Heart and mediastinum: Stable contours. Additional f indings: None. Signed: JR Ulrich Robert MDReport Verified Date/Time: 05:44:43 Reading Location: [facility] C013Y CT Body Reading Room Electro nically signed by: VIRIDIANA ULRICH on 07/29/2018 05:44 AM PHOSPHORUS 2018-07-29 04:47:00* Test Item Value Reference Range Comments PHOSPHORUS (BEAKER) (test esud=921) 2.2 mg/dL 2.3-4.7 [id number] 04:47:00* Test Item Value Reference Range Comments MAGNESIUM (BEAKER) (test rqex=689) 1.8 mg/dL 1.6-2.6 BASIC METABOLIC [id number] 04:47:00* Test Item Value Reference Range Comments SODIUM (BEAKER) (test wuvl=020) 135 meq/L 136-145 POTASSIUM (BEAKER) (test vpih=235) 3.9 meq/L 3.5-5.1 CHLORIDE (BEAKER) (test ofil=405) 108 meq/L 98-107 CO2 (BEAKER) (test gkyh=254) 20 meq/L 22-29 BLOOD UREA NITROGEN (BEAKER) (test bcny=707) 17 mg/dL 7-21 CREATININE (BEAKER) (test uwxd=376) 0.73 mg/dL 0.57-1.25 GLUCOSE RANDOM (BEAKER) (test fdwv=438) 125 mg/dL 70-105 CALCIUM (BEAKER) (test xqou=094) 8.0 mg/dL 8.4-10.2 EGFR (BEAKER) (test vupy=9243) 110 mL/min/1.73 sq m ESTIMATED GFR IS NOT ACCURATE CREATININE CLEARANCE IN PREDICTING GLOMERULAR FILTRATION RATE. ESTIMATED GFR IS NOT APPLICABLE FOR DIALYSIS PATIENTS. HEPATIC FUNCTION [id number] 04:47:00* Test Item Value Reference Range Comments TOTAL PROTEIN (BEAKER) (test pdlw=883) 5.1 gm/dL 6.0-8.3 ALBUMIN (BEAKER) (test wayi=9775) 2.5 g/dL 3.5-5.0 BILIRUBIN TOTAL (BEAKER) (test zmcw=643) 0.6 mg/dL 0.2-1.2 BILIRUBIN DIRECT (BEAKER) (test ejtl=712) 0.4 mg/dL 0.1-0.5 ALKALINE PHOSPHATASE (BEAKER) (test vbte=333) 75 U/L 40-150 AST (SGOT) (BEAKER) (test cmtd=163) 45 U/L 5-34 ALT (SGPT) (BEAKER) (test divw=653) 50 U/L 6-55 BLOOD GAS, [id number] 04:47:00* Test Item Value Reference Range Comments PH ARTERIAL (BEAKER) (test hpka=601) 7.45 7.35-7.45 PCO2 ARTERIAL (BEAKER) (test zmkj=098) 38 mmHg 35-45 PO2 ARTERIAL (BEAKER) (test xcel=753) 121 mmHg 80-90 O2 SATURATION ARTERIAL (BEAKER) (test gcvr=599) 98.5 % 96.0-97.0 HCO3 ARTERIAL (BEAKER) (test dqhi=354) 26 mmol/L 21-29 BASE EXCESS ARTERIAL (BEAKER) (test tlki=991) 2.0 mmol/L -2.0-3.0 PATIENT TEMPERATURE (BEAKER) (test kzul=5827) 37.7 C FIO2 (BEAKER) (test ckmn=3895) 40.0 % CBC (HEMOGRAM ONLY)2018-07-29 03:51:00* Test Item Value Reference Range Comments WHITE BLOOD CELL COUNT (BEAKER) (test gvxy=726) 4.3 K/ L 3.5-10.5 RED BLOOD CELL COUNT (BEAKER) (test inlo=694) 3.33 M/ L 4.63-6.08 HEMOGLOBIN (BEAKER) (test gqmy=010) 9.9 GM/DL 13.7-17.5 HEMATOCRIT (BEAKER) (test qmqk=885) 30.3 % 40.1-51.0 MEAN CORPUSCULAR VOLUME (BEAKER) (test ydzp=833) 91.0 fL 79.0-92.2 MEAN CORPUSCULAR HEMOGLOBIN (BEAKER) (test abll=491) 29.7 pg 25.7-32.2 MEAN CORPUSCULAR HEMOGLOBIN CONC (BEAKER) (test xmdh=111) 32.7 GM/DL 32.3-36.5 RED CELL DISTRIBUTION WIDTH (BEAKER) (test zrua=963) 12.1 % 11.6-14.4 PLATELET COUNT (BEAKER) (test wqcd=135) 100 K/CU MM 150-450 MEAN PLATELET VOLUME (BEAKER) (test mzph=825) 10.2 fL 9.4-12.4 NUCLEATED RED BLOOD CELLS (BEAKER) (test mfnm=257) 0 /100 WBC 0-0 SPUTUM CULTURE + GRAM [id number] 02:32:00* Test Item Value Reference Range Comments CULTURE (BEAKER) (test hzud=1800) <1+ Normal respiratory keith present GRAM STAIN RESULT (BEAKER) (test scia=7933) 4+ WBCs GRAM STAIN RESULT (BEAKER) (test jwvp=95971) 0-5 epithelial cells GRAM STAIN RESULT (BEAKER) (test oscx=91070) No organisms seen POCT-GLUCOSE [id number] 01:12:00* Test Item Value Reference Range Comments POC-GLUCOSE METER (BEAKER) (test qcbp=2842) 97 mg/dL 70-110 TESTED AT [facility] [address] [facility] [address] [id number] 17:37:00* Test Item Value Reference Range Comments PHOSPHORUS (BEAKER) (test vabr=632) 3.6 mg/dL 2.3-4.7 [id number] 17:37:00* Test Item Value Reference Range Comments MAGNESIUM (BEAKER) (test awbx=968) 1.9 mg/dL 1.6-2.6 BASIC METABOLIC [id number] 17:37:00* Test Item Value Reference Range Comments SODIUM (BEAKER) (test zkdu=407) 138 meq/L 136-145 POTASSIUM (BEAKER) (test thhd=376) 4.1 meq/L 3.5-5.1 CHLORIDE (BEAKER) (test sfwu=370) 108 meq/L 98-107 CO2 (BEAKER) (test sgus=659) 25 meq/L 22-29 BLOOD UREA NITROGEN (BEAKER) (test gvjg=542) 15 mg/dL 7-21 CREATININE (BEAKER) (test ipos=127) 0.72 mg/dL 0.57-1.25 GLUCOSE RANDOM (BEAKER) (test vhfc=264) 119 mg/dL 70-105 CALCIUM (BEAKER) (test aops=994) 8.6 mg/dL 8.4-10.2 EGFR (BEAKER) (test hcwf=0668) 112 mL/min/1.73 sq m ESTIMATED GFR IS NOT ACCURATE CREATININE CLEARANCE IN PREDICTING GLOMERULAR FILTRATION RATE. ESTIMATED GFR IS NOT APPLICABLE FOR DIALYSIS PATIENTS. HEPATIC FUNCTION [id number] 17:37:00* Test Item Value Reference Range Comments TOTAL PROTEIN (BEAKER) (test srau=307) 5.1 gm/dL 6.0-8.3 ALBUMIN (BEAKER) (test houd=7346) 2.5 g/dL 3.5-5.0 BILIRUBIN TOTAL (BEAKER) (test oxzp=768) 0.6 mg/dL 0.2-1.2 BILIRUBIN DIRECT (BEAKER) (test xexw=920) 0.3 mg/dL 0.1-0.5 ALKALINE PHOSPHATASE (BEAKER) (test brlj=156) 74 U/L 40-150 AST (SGOT) (BEAKER) (test rgzb=765) 55 U/L 5-34 ALT (SGPT) (BEAKER) (test wrgy=138) 62 U/L 6-55 CBC (HEMOGRAM ONLY)2018-07-28 17:09:00* Test Item Value Reference Range Comments WHITE BLOOD CELL COUNT (BEAKER) (test cdkr=604) 5.0 K/ L 3.5-10.5 RED BLOOD CELL COUNT (BEAKER) (test pmuj=548) 3.42 M/ L 4.63-6.08 HEMOGLOBIN (BEAKER) (test ifam=111) 10.3 GM/DL 13.7-17.5 HEMATOCRIT (BEAKER) (test szkd=784) 31.5 % 40.1-51.0 MEAN CORPUSCULAR VOLUME (BEAKER) (test womi=031) 92.1 fL 79.0-92.2 MEAN CORPUSCULAR HEMOGLOBIN (BEAKER) (test pddw=565) 30.1 pg 25.7-32.2 MEAN CORPUSCULAR HEMOGLOBIN CONC (BEAKER) (test iqim=907) 32.7 GM/DL 32.3-36.5 RED CELL DISTRIBUTION WIDTH (BEAKER) (test mfjj=392) 12.5 % 11.6-14.4 PLATELET COUNT (BEAKER) (test rcim=381) 115 K/CU MM 150-450 MEAN PLATELET VOLUME (BEAKER) (test efmo=390) 10.3 fL 9.4-12.4 NUCLEATED RED BLOOD CELLS (BEAKER) (test uvju=794) 0 /100 WBC 0-0 POCT-GLUCOSE [id number] 17:03:00* Test Item Value Reference Range Comments POC-GLUCOSE METER (BEAKER) (test czfd=9540) 117 mg/dL 70-110 TESTED AT [address] [address] POCT-GLUCOSE [id number] 11:12:00* Test Item Value Reference Range Comments POC-GLUCOSE METER (BEAKER) (test tmee=7808) 125 mg/dL 70-110 TESTED AT [address] [address] BLOOD GAS, [id number] 10:59:00* Test Item Value Reference Range Comments PH ARTERIAL (BEAKER) (test ooxn=752) 7.35 7.35-7.45 PCO2 ARTERIAL (BEAKER) (test cygx=486) 46 mmHg 35-45 PO2 ARTERIAL (BEAKER) (test ysgv=475) 119 mmHg 80-90 O2 SATURATION ARTERIAL (BEAKER) (test ligs=296) 97.9 % 96.0-97.0 HCO3 ARTERIAL (BEAKER) (test izpk=746) 25 mmol/L 21-29 BASE EXCESS ARTERIAL (BEAKER) (test xebt=765) -0.9 mmol/L -2.0-3.0 PATIENT TEMPERATURE (BEAKER) (test hfsf=9881) 38.1 C FIO2 (BEAKER) (test gyfp=7399) 40.0 % POCT-GLUCOSE [id number] 07:27:00* Test Item Value Reference Range Comments POC-GLUCOSE METER (BEAKER) (test sslb=7980) 108 mg/dL 70-110 TESTED AT [address] [address] POCT-GLUCOSE [id number] 06:30:00* Test Item Value Reference Range Comments POC-GLUCOSE METER (BEAKER) (test jlcb=7130) 117 mg/dL 70-110 TESTED AT [facility] [address] [facility] [address] CALCIUM, [id number] 04:48:00* Test Item Value Reference Range Comments CALCIUM IONIZED (BEAKER) (test dcex=008) 1.07 mmol/L 1.12-1.27 PH, BLOOD (BEAKER) (test qvuq=2518) 7.44 [id number] 04:38:00* Test Item Value Reference Range Comments PHOSPHORUS (BEAKER) (test ewgt=731) 3.1 mg/dL 2.3-4.7 [id number] 04:38:00* Test Item Value Reference Range Comments MAGNESIUM (BEAKER) (test rsbr=509) 1.9 mg/dL 1.6-2.6 BASIC METABOLIC [id number] 04:38:00* Test Item Value Reference Range Comments SODIUM (BEAKER) (test zlku=657) 135 meq/L 136-145 POTASSIUM (BEAKER) (test puzq=758) 3.6 meq/L 3.5-5.1 CHLORIDE (BEAKER) (test egpj=497) 106 meq/L 98-107 CO2 (BEAKER) (test ecvx=397) 25 meq/L 22-29 BLOOD UREA NITROGEN (BEAKER) (test cncs=033) 16 mg/dL 7-21 CREATININE (BEAKER) (test ljuv=554) 0.76 mg/dL 0.57-1.25 GLUCOSE RANDOM (BEAKER) (test gsqt=675) 118 mg/dL 70-105 CALCIUM (BEAKER) (test meka=892) 8.1 mg/dL 8.4-10.2 EGFR (BEAKER) (test fmay=8550) 105 mL/min/1.73 sq m ESTIMATED GFR IS NOT ACCURATE CREATININE CLEARANCE IN PREDICTING GLOMERULAR FILTRATION RATE. ESTIMATED GFR IS NOT APPLICABLE FOR DIALYSIS PATIENTS. HEPATIC FUNCTION [id number] 04:38:00* Test Item Value Reference Range Comments TOTAL PROTEIN (BEAKER) (test qcjz=131) 4.9 gm/dL 6.0-8.3 ALBUMIN (BEAKER) (test jvjw=6038) 2.5 g/dL 3.5-5.0 BILIRUBIN TOTAL (BEAKER) (test oazg=508) 0.6 mg/dL 0.2-1.2 BILIRUBIN DIRECT (BEAKER) (test jrwm=745) 0.3 mg/dL 0.1-0.5 ALKALINE PHOSPHATASE (BEAKER) (test xmzf=767) 61 U/L 40-150 AST (SGOT) (BEAKER) (test mfgf=557) 59 U/L 5-34 ALT (SGPT) (BEAKER) (test nnlx=841) 68 U/L 6-55 CBC (HEMOGRAM ONLY)2018-07-28 04:14:00* Test Item Value Reference Range Comments WHITE BLOOD CELL COUNT (BEAKER) (test bgda=585) 4.4 K/ L 3.5-10.5 RED BLOOD CELL COUNT (BEAKER) (test wicr=897) 3.58 M/ L 4.63-6.08 HEMOGLOBIN (BEAKER) (test wkvw=845) 10.6 GM/DL 13.7-17.5 HEMATOCRIT (BEAKER) (test eszy=423) 32.9 % 40.1-51.0 MEAN CORPUSCULAR VOLUME (BEAKER) (test mbol=165) 91.9 fL 79.0-92.2 MEAN CORPUSCULAR HEMOGLOBIN (BEAKER) (test iemc=023) 29.6 pg 25.7-32.2 MEAN CORPUSCULAR HEMOGLOBIN CONC (BEAKER) (test ypev=553) 32.2 GM/DL 32.3-36.5 RED CELL DISTRIBUTION WIDTH (BEAKER) (test gyfq=285) 12.4 % 11.6-14.4 PLATELET COUNT (BEAKER) (test occs=516) 109 K/CU MM 150-450 MEAN PLATELET VOLUME (BEAKER) (test qnks=659) 10.8 fL 9.4-12.4 NUCLEATED RED BLOOD CELLS (BEAKER) (test npak=130) 0 /100 WBC 0-0 RAD, CHEST, 1 VIEW, NON [id number] 04:01:00Reason for exam:->respiratory failureShould this be performed at the bedside?->YesFINAL REPORT RAD, CHEST, 1 VIEW, NON DEPT INDICATION: respiratory failure COMPARISON: Prior day's exam FINDINGS: Portable frontal view of the chest. IMPRESSION: Support Lines: Stable. Lungs and pleura: Increasing linear atelectasis at the right upper lobe and subsegmental atelectasis at the right base. No lobar consolidative changes. No effusion. No pneumothorax.Heart and mediastinum: Stable contours. Additional findings: None. Signed: JR Mojgan, Viridiana JACOBeport Verified Date/Time: 07/28/2018 04:01:33 Reading Location: [place] [id number] Body Reading Room -GLUCOSE [id number] 17:58:00* Test Item Value Reference Range Comments POC-GLUCOSE METER (BEAKER) (test sjwf=2608) 105 mg/dL 70-110 TESTED AT [facility] [address] [facility] [address] BASIC METABOLIC [id number] 17:01:00* Test Item Value Reference Range Comments SODIUM (BEAKER) (test brge=147) 137 meq/L 136-145 POTASSIUM (BEAKER) (test xqmh=876) 3.6 meq/L 3.5-5.1 CHLORIDE (BEAKER) (test mjdn=425) 106 meq/L 98-107 CO2 (BEAKER) (test kmaj=647) 24 meq/L 22-29 BLOOD UREA NITROGEN (BEAKER) (test wvwf=843) 17 mg/dL 7-21 CREATININE (BEAKER) (test hlqo=966) 0.73 mg/dL 0.57-1.25 GLUCOSE RANDOM (BEAKER) (test golx=639) 107 mg/dL 70-105 CALCIUM (BEAKER) (test ntst=906) 7.9 mg/dL 8.4-10.2 EGFR (BEAKER) (test zyqq=4175) 110 mL/min/1.73 sq m ESTIMATED GFR IS NOT ACCURATE CREATININE CLEARANCE IN PREDICTING GLOMERULAR FILTRATION RATE. ESTIMATED GFR IS NOT APPLICABLE FOR DIALYSIS PATIENTS. [id number] 17:00:00* Test Item Value Reference Range Comments PHOSPHORUS (BEAKER) (test vytq=970) 3.1 mg/dL 2.3-4.7 [id number] 17:00:00* Test Item Value Reference Range Comments MAGNESIUM (BEAKER) (test qvfr=753) 1.9 mg/dL 1.6-2.6 HEPATIC FUNCTION [id number] 17:00:00* Test Item Value Reference Range Comments TOTAL PROTEIN (BEAKER) (test sknk=509) 4.8 gm/dL 6.0-8.3 ALBUMIN (BEAKER) (test egta=4615) 2.4 g/dL 3.5-5.0 BILIRUBIN TOTAL (BEAKER) (test acou=043) 0.6 mg/dL 0.2-1.2 BILIRUBIN DIRECT (BEAKER) (test gsmh=427) 0.3 mg/dL 0.1-0.5 ALKALINE PHOSPHATASE (BEAKER) (test shxp=663) 48 U/L 40-150 AST (SGOT) (BEAKER) (test dpvd=376) 61 U/L 5-34 ALT (SGPT) (BEAKER) (test ipyt=606) 76 U/L 6-55 CBC (HEMOGRAM ONLY)2018-07-27 16:38:00* Test Item Value Reference Range Comments WHITE BLOOD CELL COUNT (BEAKER) (test yshg=180) 4.7 K/ L 3.5-10.5 RED BLOOD CELL COUNT (BEAKER) (test wupz=193) 3.59 M/ L 4.63-6.08 HEMOGLOBIN (BEAKER) (test verc=297) 10.7 GM/DL 13.7-17.5 HEMATOCRIT (BEAKER) (test qyea=664) 32.6 % 40.1-51.0 MEAN CORPUSCULAR VOLUME (BEAKER) (test kwzo=180) 90.8 fL 79.0-92.2 MEAN CORPUSCULAR HEMOGLOBIN (BEAKER) (test vdaz=910) 29.8 pg 25.7-32.2 MEAN CORPUSCULAR HEMOGLOBIN CONC (BEAKER) (test unbo=901) 32.8 GM/DL 32.3-36.5 RED CELL DISTRIBUTION WIDTH (BEAKER) (test zysy=164) 12.5 % 11.6-14.4 PLATELET COUNT (BEAKER) (test pwvk=659) 87 K/CU MM 150-450 MEAN PLATELET VOLUME (BEAKER) (test jajv=127) 10.2 fL 9.4-12.4 NUCLEATED RED BLOOD CELLS (BEAKER) (test befc=244) 0 /100 WBC 0-0 POCT-GLUCOSE [id number] 12:38:00* Test Item Value Reference Range Comments POC-GLUCOSE METER (BEAKER) (test knvk=2784) 103 mg/dL 70-110 TESTED AT [facility] [address] [facility] [address] RAD, CHEST, 1 VIEW, NON [id number] 09:07:00Reason for exam:->respiratory failureShould this be performed at the bedside?->YesFINAL REPORT AP chest HISTORY: Respiratory failure COMPARISON: 07/26/2018 IMPRESSION:Supportive lines unchanged. Hypoinflation. Stable cardiac silhouette. Perihilar opacities suggestive of edema. New focal opacity at the left lung base suggestive of atelectasis. No pneumothorax. Signed: Miladys Su MDReport Verified Date/Time: 07/27/2018 09:07:38 Reading Location: [address] Body Reading Room OMYCIN LEVEL, [id number] 09:00:00* Test Item Value Reference Range Comments VANCOMYCIN TROUGH (BEAKER) (test dtmv=285) 10.6 ug/mL 10.0-20.0 POCT-GLUCOSE [id number] 05:49:00* Test Item Value Reference Range Comments POC-GLUCOSE METER (BEAKER) (test ztsa=2650) 99 mg/dL 70-110 TESTED AT [place] [id number] [facility] [address] [id number] 04:46:00* Test Item Value Reference Range Comments PHOSPHORUS (BEAKER) (test jaxu=070) 2.9 mg/dL 2.3-4.7 [id number] 04:46:00* Test Item Value Reference Range Comments MAGNESIUM (BEAKER) (test gswg=334) 2.1 mg/dL 1.6-2.6 BASIC METABOLIC [id number] 04:46:00* Test Item Value Reference Range Comments SODIUM (BEAKER) (test labu=230) 137 meq/L 136-145 POTASSIUM (BEAKER) (test ozfm=119) 3.8 meq/L 3.5-5.1 CHLORIDE (BEAKER) (test powf=083) 103 meq/L 98-107 CO2 (BEAKER) (test dgtz=021) 24 meq/L 22-29 BLOOD UREA NITROGEN (BEAKER) (test yalu=772) 19 mg/dL 7-21 CREATININE (BEAKER) (test uxeh=592) 0.82 mg/dL 0.57-1.25 GLUCOSE RANDOM (BEAKER) (test igqy=362) 86 mg/dL 70-105 CALCIUM (BEAKER) (test gred=775) 8.4 mg/dL 8.4-10.2 EGFR (BEAKER) (test sivw=2221) 96 mL/min/1.73 sq m ESTIMATED GFR IS NOT ACCURATE CREATININE CLEARANCE IN PREDICTING GLOMERULAR FILTRATION RATE. ESTIMATED GFR IS NOT APPLICABLE FOR DIALYSIS PATIENTS. HEPATIC FUNCTION [id number] 04:46:00* Test Item Value Reference Range Comments TOTAL PROTEIN (BEAKER) (test qnlm=115) 5.3 gm/dL 6.0-8.3 ALBUMIN (BEAKER) (test hfgx=8104) 2.8 g/dL 3.5-5.0 BILIRUBIN TOTAL (BEAKER) (test tana=283) 0.9 mg/dL 0.2-1.2 BILIRUBIN DIRECT (BEAKER) (test wegv=466) 0.3 mg/dL 0.1-0.5 ALKALINE PHOSPHATASE (BEAKER) (test puzz=087) 50 U/L 40-150 AST (SGOT) (BEAKER) (test lhwq=421) 58 U/L 5-34 ALT (SGPT) (BEAKER) (test tkmd=257) 100 U/L 6-55 CBC (HEMOGRAM ONLY)2018-07-27 03:24:00* Test Item Value Reference Range Comments WHITE BLOOD CELL COUNT (BEAKER) (test tvsy=338) 7.3 K/ L 3.5-10.5 RED BLOOD CELL COUNT (BEAKER) (test huqx=686) 4.03 M/ L 4.63-6.08 HEMOGLOBIN (BEAKER) (test wisw=918) 12.1 GM/DL 13.7-17.5 HEMATOCRIT (BEAKER) (test ansh=811) 36.9 % 40.1-51.0 MEAN CORPUSCULAR VOLUME (BEAKER) (test jkzw=570) 91.6 fL 79.0-92.2 MEAN CORPUSCULAR HEMOGLOBIN (BEAKER) (test hecc=152) 30.0 pg 25.7-32.2 MEAN CORPUSCULAR HEMOGLOBIN CONC (BEAKER) (test qtwj=305) 32.8 GM/DL 32.3-36.5 RED CELL DISTRIBUTION WIDTH (BEAKER) (test fgln=127) 12.6 % 11.6-14.4 PLATELET COUNT (BEAKER) (test cmeb=167) 118 K/CU MM 150-450 MEAN PLATELET VOLUME (BEAKER) (test ctkd=193) 10.4 fL 9.4-12.4 NUCLEATED RED BLOOD CELLS (BEAKER) (test ceov=276) 0 /100 WBC 0-0 POCT-GLUCOSE [id number] 00:02:00* Test Item Value Reference Range Comments POC-GLUCOSE METER (BEAKER) (test xkcl=8026) 81 mg/dL 70-110 TESTED AT [place] [id number] [facility] [address] POCT-GLUCOSE [id number] 18:06:00* Test Item Value Reference Range Comments POC-GLUCOSE METER (BEAKER) (test tfgv=7869) 99 mg/dL 70-110 TESTED AT [address] [address] [id number] 17:16:00* Test Item Value Reference Range Comments PHOSPHORUS (BEAKER) (test psue=402) 2.3 mg/dL 2.3-4.7 [id number] 17:16:00* Test Item Value Reference Range Comments MAGNESIUM (BEAKER) (test stgn=194) 2.0 mg/dL 1.6-2.6 BASIC METABOLIC [id number] 17:16:00* Test Item Value Reference Range Comments SODIUM (BEAKER) (test czlj=829) 135 meq/L 136-145 POTASSIUM (BEAKER) (test fdxw=409) 3.6 meq/L 3.5-5.1 CHLORIDE (BEAKER) (test kxma=176) 102 meq/L 98-107 CO2 (BEAKER) (test qbfd=635) 27 meq/L 22-29 BLOOD UREA NITROGEN (BEAKER) (test cxzf=240) 17 mg/dL 7-21 CREATININE (BEAKER) (test btjb=687) 0.83 mg/dL 0.57-1.25 GLUCOSE RANDOM (BEAKER) (test valz=417) 92 mg/dL 70-105 CALCIUM (BEAKER) (test pyyn=402) 8.0 mg/dL 8.4-10.2 EGFR (BEAKER) (test xaej=9236) 95 mL/min/1.73 sq m ESTIMATED GFR IS NOT ACCURATE CREATININE CLEARANCE IN PREDICTING GLOMERULAR FILTRATION RATE. ESTIMATED GFR IS NOT APPLICABLE FOR DIALYSIS PATIENTS. HEPATIC FUNCTION [id number] 17:16:00* Test Item Value Reference Range Comments TOTAL PROTEIN (BEAKER) (test jzsy=339) 4.8 gm/dL 6.0-8.3 ALBUMIN (BEAKER) (test ygkx=3375) 2.6 g/dL 3.5-5.0 BILIRUBIN TOTAL (BEAKER) (test wlca=411) 0.7 mg/dL 0.2-1.2 BILIRUBIN DIRECT (BEAKER) (test ubwz=301) 0.3 mg/dL 0.1-0.5 ALKALINE PHOSPHATASE (BEAKER) (test ntpt=856) 40 U/L 40-150 AST (SGOT) (BEAKER) (test jsjy=641) 77 U/L 5-34 ALT (SGPT) (BEAKER) (test iyba=382) 113 U/L 6-55 CBC (HEMOGRAM ONLY)2018-07-26 16:41:00* Test Item Value Reference Range Comments WHITE BLOOD CELL COUNT (BEAKER) (test oyjs=540) 6.3 K/ L 3.5-10.5 RED BLOOD CELL COUNT (BEAKER) (test rbtl=272) 3.71 M/ L 4.63-6.08 HEMOGLOBIN (BEAKER) (test haie=619) 11.1 GM/DL 13.7-17.5 HEMATOCRIT (BEAKER) (test wknj=203) 33.8 % 40.1-51.0 MEAN CORPUSCULAR VOLUME (BEAKER) (test ujov=168) 91.1 fL 79.0-92.2 MEAN CORPUSCULAR HEMOGLOBIN (BEAKER) (test tpar=735) 29.9 pg 25.7-32.2 MEAN CORPUSCULAR HEMOGLOBIN CONC (BEAKER) (test lxxb=874) 32.8 GM/DL 32.3-36.5 RED CELL DISTRIBUTION WIDTH (BEAKER) (test gueq=783) 12.6 % 11.6-14.4 PLATELET COUNT (BEAKER) (test vplh=719) 97 K/CU MM 150-450 MEAN PLATELET VOLUME (BEAKER) (test gxdt=409) 10.4 fL 9.4-12.4 NUCLEATED RED BLOOD CELLS (BEAKER) (test krhz=757) 0 /100 WBC 0-0 POCT-GLUCOSE [id number] 11:20:00* Test Item Value Reference Range Comments POC-GLUCOSE METER (BEAKER) (test cquq=0656) 93 mg/dL 70-110 TESTED AT [facility] [address] [facility] [address] POCT-GLUCOSE [id number] 06:08:00* Test Item Value Reference Range Comments POC-GLUCOSE METER (BEAKER) (test jerp=7836) 120 mg/dL 70-110 TESTED AT [address] [address] BLOOD GAS, [id number] 05:56:00* Test Item Value Reference Range Comments PH ARTERIAL (BEAKER) (test xnzb=646) 7.48 7.35-7.45 PCO2 ARTERIAL (BEAKER) (test hwnv=301) 41 mmHg 35-45 PO2 ARTERIAL (BEAKER) (test mzpw=344) 127 mmHg 80-90 O2 SATURATION ARTERIAL (BEAKER) (test xfra=334) 98.6 % 96.0-97.0 HCO3 ARTERIAL (BEAKER) (test erqe=552) 29 mmol/L 21-29 BASE EXCESS ARTERIAL (BEAKER) (test ivja=275) 5.5 mmol/L -2.0-3.0 PATIENT TEMPERATURE (BEAKER) (test kbzk=1130) 38.0 C FIO2 (BEAKER) (test pcjm=0363) 70.0 % BASIC METABOLIC [id number] 04:11:00* Test Item Value Reference Range Comments SODIUM (BEAKER) (test apfs=321) 132 meq/L 136-145 POTASSIUM (BEAKER) (test wktu=766) 3.6 meq/L 3.5-5.1 CHLORIDE (BEAKER) (test lqyr=869) 95 meq/L 98-107 CO2 (BEAKER) (test ihqy=087) 27 meq/L 22-29 BLOOD UREA NITROGEN (BEAKER) (test mdwg=272) 20 mg/dL 7-21 CREATININE (BEAKER) (test vqot=043) 1.00 mg/dL 0.57-1.25 GLUCOSE RANDOM (BEAKER) (test yorh=772) 138 mg/dL 70-105 CALCIUM (BEAKER) (test dzrx=898) 7.4 mg/dL 8.4-10.2 EGFR (BEAKER) (test nikd=4916) 76 mL/min/1.73 sq m ESTIMATED GFR IS NOT ACCURATE CREATININE CLEARANCE IN PREDICTING GLOMERULAR FILTRATION RATE. ESTIMATED GFR IS NOT APPLICABLE FOR DIALYSIS PATIENTS. [id number] 03:59:00* Test Item Value Reference Range Comments PHOSPHORUS (BEAKER) (test aypf=908) 3.4 mg/dL 2.3-4.7 [id number] 03:59:00* Test Item Value Reference Range Comments MAGNESIUM (BEAKER) (test gnvz=908) 2.5 mg/dL 1.6-2.6 HEPATIC FUNCTION [id number] 03:59:00* Test Item Value Reference Range Comments TOTAL PROTEIN (BEAKER) (test iuiu=317) 5.4 gm/dL 6.0-8.3 ALBUMIN (BEAKER) (test uvfw=4751) 3.1 g/dL 3.5-5.0 BILIRUBIN TOTAL (BEAKER) (test bpbn=669) 0.8 mg/dL 0.2-1.2 BILIRUBIN DIRECT (BEAKER) (test mbum=686) 0.4 mg/dL 0.1-0.5 ALKALINE PHOSPHATASE (BEAKER) (test czpg=573) 43 U/L 40-150 AST (SGOT) (BEAKER) (test jwfq=177) 98 U/L 5-34 ALT (SGPT) (BEAKER) (test ijox=675) 116 U/L 6-55 CBC (HEMOGRAM ONLY)2018-07-26 03:47:00* Test Item Value Reference Range Comments WHITE BLOOD CELL COUNT (BEAKER) (test vvhn=400) 8.5 K/ L 3.5-10.5 RED BLOOD CELL COUNT (BEAKER) (test fyox=381) 4.13 M/ L 4.63-6.08 HEMOGLOBIN (BEAKER) (test msge=286) 12.4 GM/DL 13.7-17.5 HEMATOCRIT (BEAKER) (test dvjp=006) 37.4 % 40.1-51.0 MEAN CORPUSCULAR VOLUME (BEAKER) (test acfl=090) 90.6 fL 79.0-92.2 MEAN CORPUSCULAR HEMOGLOBIN (BEAKER) (test utbe=047) 30.0 pg 25.7-32.2 MEAN CORPUSCULAR HEMOGLOBIN CONC (BEAKER) (test fzpx=218) 33.2 GM/DL 32.3-36.5 RED CELL DISTRIBUTION WIDTH (BEAKER) (test imir=501) 12.4 % 11.6-14.4 PLATELET COUNT (BEAKER) (test gsfk=428) 147 K/CU MM 150-450 MEAN PLATELET VOLUME (BEAKER) (test xlsk=318) 10.3 fL 9.4-12.4 NUCLEATED RED BLOOD CELLS (BEAKER) (test yued=785) 0 /100 WBC 0-0 RAD, CHEST, 1 VIEW, NON [id number] 02:00:00Reason for exam:->line placement Should this be performed at the bedside?->YesFINAL REPORT RAD, CHEST, 1 VIEW, NON DEPT INDICATION: line placement COMPARISON: Prior day's exam FINDINGS: Portable frontal view of the chest. IMPRESSION: Support Lines: Left IJ central venous catheter terminates at the cavoatrial junction. Remaining support hardware is stable. Lungs and pleura: Unchanged airspace opacities. No pneumothorax.Heart and mediastinum: Stable contours. Additional findings: None. Signed: JR Ulrich Robert MDReport Verified Date/Time: 07/26/2018 02:00:23 Reading Location: [address] Body Reading Room D GAS, ARTERIAL 2018-07-26 01:37:00* Test Item Value Reference Range Comments PH ARTERIAL (BEAKER) (test dnhi=445) 7.45 7.35-7.45 PCO2 ARTERIAL (BEAKER) (test cqzq=799) 46 mmHg 35-45 PO2 ARTERIAL (BEAKER) (test ikzd=930) 97 mmHg 80-90 O2 SATURATION ARTERIAL (BEAKER) (test oemr=259) 97.5 % 96.0-97.0 HCO3 ARTERIAL (BEAKER) (test rcrx=797) 31 mmol/L 21-29 BASE EXCESS ARTERIAL (BEAKER) (test vztl=312) 6.5 mmol/L -2.0-3.0 PATIENT TEMPERATURE (BEAKER) (test ufik=3577) 37.5 C FIO2 (BEAKER) (test wnjf=1092) 100.0 % RAD, CHEST, 1 VIEW, NON [id number] 23:50:00Reason for exam:->intubatedShould this be performed at the bedside?->YesFINAL REPORT CLINICAL INDICATION: Intubation Comparison: Same date at 1531 hours The tip of an endotracheal tube is above the agnes at the level of the inferior clavicular heads. The cardiomediastinal contours are stable. The lung volumes remain low. Central pulmonary vascular congestion and bilateral parenchymal opacities are similar to previous. There is no pneumothorax. An enteric tube remains in place. Surgical clips overlie the right upper quadrant. Signed: Cedric Manjarrez MDReport Verified Date/Time: 07/25/2018 23:50:22 Reading Location: [address] Reading Room D GAS, [id number] 21:51:00* Test Item Value Reference Range Comments PH ARTERIAL (BEAKER) (test nmzl=065) 7.42 7.35-7.45 PCO2 ARTERIAL (BEAKER) (test vzsp=757) 53 mmHg 35-45 PO2 ARTERIAL (BEAKER) (test nyne=445) 69 mmHg 80-90 O2 SATURATION ARTERIAL (BEAKER) (test yqah=436) 92.8 % 96.0-97.0 HCO3 ARTERIAL (BEAKER) (test dhid=306) 33 mmol/L 21-29 BASE EXCESS ARTERIAL (BEAKER) (test yype=707) 7.3 mmol/L -2.0-3.0 PATIENT TEMPERATURE (BEAKER) (test nqrb=4106) 38.0 C FIO2 (BEAKER) (test ehta=0141) 100.0 % SODIUM, RANDOM [id number] 18:07:00* Test Item Value Reference Range Comments SODIUM URINE (BEAKER) (test ihis=508) 155 meq/L Reference Range: No NormalsBASIC METABOLIC [id number] 17:43:00* Test Item Value Reference Range Comments SODIUM (BEAKER) (test rryp=154) 137 meq/L 136-145 POTASSIUM (BEAKER) (test ygrm=521) 3.4 meq/L 3.5-5.1 CHLORIDE (BEAKER) (test efkh=777) 97 meq/L 98-107 CO2 (BEAKER) (test foew=831) 30 meq/L 22-29 BLOOD UREA NITROGEN (BEAKER) (test luxq=078) 15 mg/dL 7-21 CREATININE (BEAKER) (test ejxj=114) 0.87 mg/dL 0.57-1.25 GLUCOSE RANDOM (BEAKER) (test kbyf=329) 129 mg/dL 70-105 CALCIUM (BEAKER) (test avph=576) 7.8 mg/dL 8.4-10.2 EGFR (BEAKER) (test lmoe=8319) 90 mL/min/1.73 sq m ESTIMATED GFR IS NOT ACCURATE CREATININE CLEARANCE IN PREDICTING GLOMERULAR FILTRATION RATE. ESTIMATED GFR IS NOT APPLICABLE FOR DIALYSIS PATIENTS. [id number] 17:39:00* Test Item Value Reference Range Comments MAGNESIUM (BEAKER) (test lxyw=623) 2.0 mg/dL 1.6-2.6 [id number] 17:39:00* Test Item Value Reference Range Comments PHOSPHORUS (BEAKER) (test agvl=694) 3.0 mg/dL 2.3-4.7 HEPATIC FUNCTION [id number] 17:39:00* Test Item Value Reference Range Comments TOTAL PROTEIN (BEAKER) (test kowc=493) 5.9 gm/dL 6.0-8.3 ALBUMIN (BEAKER) (test tmig=5063) 3.5 g/dL 3.5-5.0 BILIRUBIN TOTAL (BEAKER) (test qemu=497) 1.4 mg/dL 0.2-1.2 BILIRUBIN DIRECT (BEAKER) (test xhfe=619) 0.5 mg/dL 0.1-0.5 ALKALINE PHOSPHATASE (BEAKER) (test bpqx=173) 48 U/L 40-150 AST (SGOT) (BEAKER) (test jucs=638) 81 U/L 5-34 ALT (SGPT) (BEAKER) (test lvsk=578) 95 U/L 6-55 CBC (HEMOGRAM ONLY)2018-07-25 17:15:00* Test Item Value Reference Range Comments WHITE BLOOD CELL COUNT (BEAKER) (test tiaj=025) 10.8 K/ L 3.5-10.5 RED BLOOD CELL COUNT (BEAKER) (test mciq=071) 4.72 M/ L 4.63-6.08 HEMOGLOBIN (BEAKER) (test zrhg=354) 14.1 GM/DL 13.7-17.5 HEMATOCRIT (BEAKER) (test udrl=140) 41.7 % 40.1-51.0 MEAN CORPUSCULAR VOLUME (BEAKER) (test lvcj=454) 88.3 fL 79.0-92.2 MEAN CORPUSCULAR HEMOGLOBIN (BEAKER) (test egdr=878) 29.9 pg 25.7-32.2 MEAN CORPUSCULAR HEMOGLOBIN CONC (BEAKER) (test etjn=509) 33.8 GM/DL 32.3-36.5 RED CELL DISTRIBUTION WIDTH (BEAKER) (test dczo=700) 12.2 % 11.6-14.4 PLATELET COUNT (BEAKER) (test pnbf=528) 157 K/CU MM 150-450 MEAN PLATELET VOLUME (BEAKER) (test lxni=049) 9.9 fL 9.4-12.4 NUCLEATED RED BLOOD CELLS (BEAKER) (test smhf=985) 0 /100 WBC 0-0 RAD, CHEST, 1 VIEW, NON [id number] 16:07:00Reason for exam:->increasing O2 requirementsShould this be performed at the bedside?->YesFINAL REPORT TECHNIQUE: Frontal chest radiograph dated 07/25/2018. CLINICAL HISTORY: Increased O2 requirement COMPARISON STUDY: Chest radiograph performed earlier the same day IMPRESSION Enteric tube and abdominal drains are unchanged. There is stable atelectasis in the lung bases. No pleural effusion or pneumothorax. Cardiomediastinal silhouette is normal in size. No pulmonary edema. No fracture. Signed: Kartik Otto Verified Date/Time: 07/25/2018 16:07:50 Reading Location: [facility] Radiology Reading Room [facility] signed by: KARTIK OTTO on 07/25/2018 04:07 PM BLOOD GAS, [id number] 15:02:00* Test Item Value Reference Range Comments PH ARTERIAL (BEAKER) (test ftyq=265) 7.47 7.35-7.45 PCO2 ARTERIAL (BEAKER) (test prxv=013) 47 mmHg 35-45 PO2 ARTERIAL (BEAKER) (test cmda=519) 65 mmHg 80-90 O2 SATURATION ARTERIAL (BEAKER) (test gtaz=252) 93.2 % 96.0-97.0 HCO3 ARTERIAL (BEAKER) (test ednk=343) 33 mmol/L 21-29 BASE EXCESS ARTERIAL (BEAKER) (test tmix=994) 8.6 mmol/L -2.0-3.0 PATIENT TEMPERATURE (BEAKER) (test hsxi=2817) 37.5 C FIO2 (BEAKER) (test uder=6193) 100.0 % BLOOD GAS, [id number] 06:03:00* Test Item Value Reference Range Comments PH ARTERIAL (BEAKER) (test tzwh=178) 7.46 7.35-7.45 PCO2 ARTERIAL (BEAKER) (test jszs=449) 43 mmHg 35-45 PO2 ARTERIAL (BEAKER) (test qizh=834) 58 mmHg 80-90 O2 SATURATION ARTERIAL (BEAKER) (test wqun=538) 91.3 % 96.0-97.0 HCO3 ARTERIAL (BEAKER) (test yhdq=676) 30 mmol/L 21-29 BASE EXCESS ARTERIAL (BEAKER) (test tcdq=924) 5.1 mmol/L -2.0-3.0 PATIENT TEMPERATURE (BEAKER) (test cskb=4338) 37.0 C FIO2 (BEAKER) (test pnzp=3502) 100.0 % BASIC METABOLIC [id number] 04:27:00* Test Item Value Reference Range Comments SODIUM (BEAKER) (test hvph=995) 132 meq/L 136-145 POTASSIUM (BEAKER) (test sgje=290) 3.8 meq/L 3.5-5.1 Specimen slightly hemolyzed CHLORIDE (BEAKER) (test caal=693) 97 meq/L 98-107 CO2 (BEAKER) (test xtqn=225) 25 meq/L 22-29 BLOOD UREA NITROGEN (BEAKER) (test juue=638) 15 mg/dL 7-21 CREATININE (BEAKER) (test ffnv=200) 0.89 mg/dL 0.57-1.25 Specimen slightly hemolyzed GLUCOSE RANDOM (BEAKER) (test rtqb=458) 138 mg/dL 70-105 CALCIUM (BEAKER) (test tcsq=407) 7.9 mg/dL 8.4-10.2 EGFR (BEAKER) (test nhjx=3994) 87 mL/min/1.73 sq m ESTIMATED GFR IS NOT ACCURATE CREATININE CLEARANCE IN PREDICTING GLOMERULAR FILTRATION RATE. ESTIMATED GFR IS NOT APPLICABLE FOR DIALYSIS PATIENTS. [id number] 04:24:00* Test Item Value Reference Range Comments MAGNESIUM (BEAKER) (test wgbn=123) 1.6 mg/dL 1.6-2.6 Specimen slightly hemolyzed [id number] 04:24:00* Test Item Value Reference Range Comments PHOSPHORUS (BEAKER) (test jhqi=091) 3.5 mg/dL 2.3-4.7 Specimen slightly hemolyzed HEPATIC FUNCTION [id number] 04:24:00* Test Item Value Reference Range Comments TOTAL PROTEIN (BEAKER) (test glqd=419) 6.6 gm/dL 6.0-8.3 Specimen slightly hemolyzed ALBUMIN (BEAKER) (test bjea=9413) 4.1 g/dL 3.5-5.0 Specimen slightly hemolyzed BILIRUBIN TOTAL (BEAKER) (test nark=530) 1.3 mg/dL 0.2-1.2 Specimen slightly hemolyzed BILIRUBIN DIRECT (BEAKER) (test eoyn=169) 0.5 mg/dL 0.1-0.5 Specimen slightly hemolyzed ALKALINE PHOSPHATASE (BEAKER) (test jfvz=552) 52 U/L 40-150 AST (SGOT) (BEAKER) (test mjqq=663) 42 U/L 5-34 Specimen slightly hemolyzed ALT (SGPT) (BEAKER) (test yupl=224) 52 U/L 6-55 Specimen slightly hemolyzed CBC (HEMOGRAM ONLY)2018-07-25 03:58:00* Test Item Value Reference Range Comments WHITE BLOOD CELL COUNT (BEAKER) (test vdjl=585) 11.3 K/ L 3.5-10.5 RED BLOOD CELL COUNT (BEAKER) (test vyuz=293) 4.89 M/ L 4.63-6.08 HEMOGLOBIN (BEAKER) (test ncis=963) 14.3 GM/DL 13.7-17.5 HEMATOCRIT (BEAKER) (test uvpx=262) 43.5 % 40.1-51.0 MEAN CORPUSCULAR VOLUME (BEAKER) (test qcch=315) 89.0 fL 79.0-92.2 MEAN CORPUSCULAR HEMOGLOBIN (BEAKER) (test cqzv=469) 29.2 pg 25.7-32.2 MEAN CORPUSCULAR HEMOGLOBIN CONC (BEAKER) (test bcjj=040) 32.9 GM/DL 32.3-36.5 RED CELL DISTRIBUTION WIDTH (BEAKER) (test wztr=563) 12.3 % 11.6-14.4 PLATELET COUNT (BEAKER) (test dnjq=426) 174 K/CU MM 150-450 MEAN PLATELET VOLUME (BEAKER) (test lcue=681) 9.9 fL 9.4-12.4 NUCLEATED RED BLOOD CELLS (BEAKER) (test zabl=250) 0 /100 WBC 0-0 RAD, CHEST, 1 VIEW, NON [id number] 01:51:00Reason for exam:->hypoxiaShould this be performed at the bedside?->YesFINAL REPORT RAD, CHEST, 1 VIEW, NON DEPT INDICATION: hypoxia COMPARISON: None. FINDINGS: Portable frontal view of the chest. IMPRESSION: Support Lines: Enteric tube projects outside the imaged volume. Lungs and pleura: Poorly defined air space disease on the right may reflect atypical infection in the appropriate clinical context. No effusion. No pneumothorax.Heart and mediastinum: Unremarkable contours.Additional findings: None. Signed: JR Ulrich Robert MDReport Verified Date/Time: 07/25/2018 01:51:57 Reading Location: [facility] B1 C013Y CT Body Reading Room D GAS, [id number] 00:25:00* Test Item Value Reference Range Comments PH ARTERIAL (BEAKER) (test wlwc=549) 7.39 7.35-7.45 PCO2 ARTERIAL (BEAKER) (test rqku=105) 44 mmHg 35-45 PO2 ARTERIAL (BEAKER) (test cwjg=702) 64 mmHg 80-90 O2 SATURATION ARTERIAL (BEAKER) (test vkvw=307) 92.3 % 96.0-97.0 HCO3 ARTERIAL (BEAKER) (test safr=274) 26 mmol/L 21-29 BASE EXCESS ARTERIAL (BEAKER) (test plig=426) 0.7 mmol/L -2.0-3.0 PATIENT TEMPERATURE (BEAKER) (test mbae=2518) 37.1 C FIO2 (BEAKER) (test mkrk=6097) 100.0 % CBC (HEMOGRAM ONLY)2018-07-24 20:17:00* Test Item Value Reference Range Comments WHITE BLOOD CELL COUNT (BEAKER) (test scnw=037) 12.5 K/ L 3.5-10.5 RED BLOOD CELL COUNT (BEAKER) (test wuhx=236) 4.52 M/ L 4.63-6.08 HEMOGLOBIN (BEAKER) (test uyzv=019) 13.5 GM/DL 13.7-17.5 HEMATOCRIT (BEAKER) (test eftt=117) 41.1 % 40.1-51.0 MEAN CORPUSCULAR VOLUME (BEAKER) (test pzby=578) 90.9 fL 79.0-92.2 MEAN CORPUSCULAR HEMOGLOBIN (BEAKER) (test mtyl=207) 29.9 pg 25.7-32.2 MEAN CORPUSCULAR HEMOGLOBIN CONC (BEAKER) (test gxqt=514) 32.8 GM/DL 32.3-36.5 RED CELL DISTRIBUTION WIDTH (BEAKER) (test dexx=716) 12.3 % 11.6-14.4 PLATELET COUNT (BEAKER) (test tghw=363) 167 K/CU MM 150-450 MEAN PLATELET VOLUME (BEAKER) (test ypay=065) 10.3 fL 9.4-12.4 NUCLEATED RED BLOOD CELLS (BEAKER) (test zyjy=330) 0 /100 WBC 0-0 HEPATIC FUNCTION [id number] 18:00:00* Test Item Value Reference Range Comments TOTAL PROTEIN (BEAKER) (test mgag=442) 7.8 gm/dL 6.0-8.3 ALBUMIN (BEAKER) (test eogm=9373) 5.1 g/dL 3.5-5.0 BILIRUBIN TOTAL (BEAKER) (test lvqy=784) 0.9 mg/dL 0.2-1.2 BILIRUBIN DIRECT (BEAKER) (test mqqe=778) 0.4 mg/dL 0.1-0.5 ALKALINE PHOSPHATASE (BEAKER) (test hxum=160) 61 U/L 40-150 AST (SGOT) (BEAKER) (test qiwx=437) 44 U/L 5-34 ALT (SGPT) (BEAKER) (test tytd=921) 57 U/L 6-55 [id number] 17:59:00* Test Item Value Reference Range Comments PHOSPHORUS (BEAKER) (test lnnd=356) 3.6 mg/dL 2.3-4.7 [id number] 17:59:00* Test Item Value Reference Range Comments MAGNESIUM (BEAKER) (test qkxz=611) 2.0 mg/dL 1.6-2.6 BASIC METABOLIC [id number] 17:59:00* Test Item Value Reference Range Comments SODIUM (BEAKER) (test gapp=007) 140 meq/L 136-145 POTASSIUM (BEAKER) (test fiwx=269) 4.0 meq/L 3.5-5.1 CHLORIDE (BEAKER) (test roxj=725) 108 meq/L 98-107 CO2 (BEAKER) (test lwvs=591) 16 meq/L 22-29 BLOOD UREA NITROGEN (BEAKER) (test lrpz=124) 15 mg/dL 7-21 CREATININE (BEAKER) (test tofg=168) 1.12 mg/dL 0.57-1.25 GLUCOSE RANDOM (BEAKER) (test fasv=139) 160 mg/dL 70-105 CALCIUM (BEAKER) (test duuw=088) 8.5 mg/dL 8.4-10.2 EGFR (BEAKER) (test kggj=2760) 67 mL/min/1.73 sq m ESTIMATED GFR IS NOT ACCURATE CREATININE CLEARANCE IN PREDICTING GLOMERULAR FILTRATION RATE. ESTIMATED GFR IS NOT APPLICABLE FOR DIALYSIS PATIENTS. PROTHROMBIN [id number] 17:13:00* Test Item Value Reference Range Comments PROTIME (BEAKER) (test nytj=854) 14.6 seconds 11.7-14.7 INR (BEAKER) (test kwlu=226) 1.1 <=5.9 RECOMMENDED COUMADIN/WARFARIN INR THERAPY RANGESSTANDARD DOSE: 2.0 - 3.0 Inclu rojelio: PROPHYLAXIS for venous thrombosis, systemic embolization; TREATMENT for batsheva ous thrombosis and/or pulmonary embolus.HIGH RISK: Target INR is 2.5-3.5 for pat ients with mechanical heart valves.CBC (HEMOGRAM ONLY)2018-07-24 17:00:00* Test Item Value Reference Range Comments WHITE BLOOD CELL COUNT (BEAKER) (test txcm=188) 13.0 K/ L 3.5-10.5 RED BLOOD CELL COUNT (BEAKER) (test tmsx=447) 4.63 M/ L 4.63-6.08 HEMOGLOBIN (BEAKER) (test hvof=060) 13.7 GM/DL 13.7-17.5 HEMATOCRIT (BEAKER) (test idzq=557) 42.5 % 40.1-51.0 MEAN CORPUSCULAR VOLUME (BEAKER) (test cxrc=927) 91.8 fL 79.0-92.2 MEAN CORPUSCULAR HEMOGLOBIN (BEAKER) (test tcga=045) 29.6 pg 25.7-32.2 MEAN CORPUSCULAR HEMOGLOBIN CONC (BEAKER) (test kpmy=868) 32.2 GM/DL 32.3-36.5 RED CELL DISTRIBUTION WIDTH (BEAKER) (test wkdj=174) 12.4 % 11.6-14.4 PLATELET COUNT (BEAKER) (test kfmq=596) 184 K/CU MM 150-450 MEAN PLATELET VOLUME (BEAKER) (test sldz=083) 9.9 fL 9.4-12.4 NUCLEATED RED BLOOD CELLS (BEAKER) (test ppgu=373) 0 /100 WBC 0-0 BLOOD GAS, [id number] 15:05:00* Test Item Value Reference Range Comments PH ARTERIAL (BEAKER) (test saul=325) 7.29 7.35-7.45 PCO2 ARTERIAL (BEAKER) (test hwhl=882) 32 mmHg 35-45 PO2 ARTERIAL (BEAKER) (test vuvm=826) 126 mmHg 80-90 O2 SATURATION ARTERIAL (BEAKER) (test qolc=793) 98.2 % 96.0-97.0 HCO3 ARTERIAL (BEAKER) (test jkhv=513) 15 mmol/L 21-29 BASE EXCESS ARTERIAL (BEAKER) (test eezp=014) -10.1 mmol/L -2.0-3.0 PATIENT TEMPERATURE (BEAKER) (test bbdj=9397) 37.0 C FIO2 (BEAKER) (test wsqn=5198) 100.0 % GLUCOSE-STAT [id number] 15:05:00* Test Item Value Reference Range Comments GLUCOSE RANDOM (BEAKER) (test ubqx=319) 243 mg/dL 70-110 HGB/HCT (H&H) - STAT [id number] 15:05:00* Test Item Value Reference Range Comments HEMOGLOBIN (BEAKER) (test ndfr=380) 12.2 g/dL 13.0-16.8 HEMATOCRIT (BEAKER) (test ufgw=210) 36.0 % 40.0-50.0 CALCIUM, [id number] 15:05:00* Test Item Value Reference Range Comments CALCIUM IONIZED (BEAKER) (test eodr=606) 1.02 mmol/L 1.12-1.27 PH, BLOOD (BEAKER) (test duyk=6824) 7.29 SODIUM NA-STAT [id number] 15:04:00* Test Item Value Reference Range Comments SODIUM (BEAKER) (test baul=089) 139 meq/L 135-148 POTASSIUM-STAT [id number] 15:04:00* Test Item Value Reference Range Comments POTASSIUM (BEAKER) (test tklp=730) 3.7 meq/L 3.6-5.5 GLUCOSE-STAT [id number] 13:57:00* Test Item Value Reference Range Comments GLUCOSE RANDOM (BEAKER) (test wxhy=577) 285 mg/dL 70-110 HGB/HCT (H&H) - STAT [id number] 13:57:00* Test Item Value Reference Range Comments HEMOGLOBIN (BEAKER) (test swpl=688) 13.3 g/dL 13.0-16.8 HEMATOCRIT (BEAKER) (test pmux=242) 39.0 % 40.0-50.0 SODIUM NA-STAT [id number] 13:56:00* Test Item Value Reference Range Comments SODIUM (BEAKER) (test sptl=715) 136 meq/L 135-148 POTASSIUM-STAT [id number] 13:56:00* Test Item Value Reference Range Comments POTASSIUM (BEAKER) (test wcgt=072) 4.4 meq/L 3.6-5.5 CALCIUM, [id number] 13:56:00* Test Item Value Reference Range Comments CALCIUM IONIZED (BEAKER) (test kecr=975) 1.07 mmol/L 1.12-1.27 PH, BLOOD (BEAKER) (test fiyb=5478) 7.31 BLOOD GAS, [id number] 13:56:00* Test Item Value Reference Range Comments PH ARTERIAL (BEAKER) (test sqcw=943) 7.31 7.35-7.45 PCO2 ARTERIAL (BEAKER) (test pgrv=713) 36 mmHg 35-45 PO2 ARTERIAL (BEAKER) (test bmnc=632) 118 mmHg 80-90 O2 SATURATION ARTERIAL (BEAKER) (test emzq=630) 98.0 % 96.0-97.0 HCO3 ARTERIAL (BEAKER) (test tybm=063) 18 mmol/L 21-29 BASE EXCESS ARTERIAL (BEAKER) (test fxtz=934) -7.8 mmol/L -2.0-3.0 PATIENT TEMPERATURE (BEAKER) (test bqze=0635) 37.0 C FIO2 (BEAKER) (test bdvk=6191) 55.0 % COMPREHENSIVE METABOLIC [id number] 11:15:00* Test Item Value Reference Range Comments TOTAL PROTEIN (BEAKER) (test qkid=235) 7.0 gm/dL 6.0-8.3 Specimen slightly hemolyzed ALBUMIN (BEAKER) (test bgkk=5257) 3.8 g/dL 3.5-5.0 Specimen slightly hemolyzed ALKALINE PHOSPHATASE (BEAKER) (test lnni=071) 66 U/L 40-150 BILIRUBIN TOTAL (BEAKER) (test zbiq=495) 0.6 mg/dL 0.2-1.2 Specimen slightly hemolyzed SODIUM (BEAKER) (test ifwj=375) 135 meq/L 136-145 POTASSIUM (BEAKER) (test znry=788) 4.2 meq/L 3.5-5.1 Specimen slightly hemolyzed CHLORIDE (BEAKER) (test yuca=188) 105 meq/L 98-107 CO2 (BEAKER) (test duro=249) 22 meq/L 22-29 BLOOD UREA NITROGEN (BEAKER) (test piiq=213) 18 mg/dL 7-21 CREATININE (BEAKER) (test dxas=733) 0.91 mg/dL 0.57-1.25 Specimen slightly hemolyzed GLUCOSE RANDOM (BEAKER) (test kqbp=938) 114 mg/dL 70-105 CALCIUM (BEAKER) (test jjnx=608) 8.7 mg/dL 8.4-10.2 AST (SGOT) (BEAKER) (test uawt=562) 27 U/L 5-34 Specimen slightly hemolyzed ALT (SGPT) (BEAKER) (test eaww=610) 36 U/L 6-55 Specimen slightly hemolyzed EGFR (BEAKER) (test xabf=3481) 85 mL/min/1.73 sq m ESTIMATED GFR IS NOT ACCURATE CREATININE CLEARANCE IN PREDICTING GLOMERULAR FILTRATION RATE. ESTIMATED GFR IS NOT APPLICABLE FOR DIALYSIS PATIENTS. CBC W/PLT COUNT & AUTO [id number] 09:24:00* Test Item Value Reference Range Comments WHITE BLOOD CELL COUNT (BEAKER) (test wnea=687) 5.6 K/ L 3.5-10.5 RED BLOOD CELL COUNT (BEAKER) (test blum=438) 4.99 M/ L 4.63-6.08 HEMOGLOBIN (BEAKER) (test tqdi=703) 14.8 GM/DL 13.7-17.5 HEMATOCRIT (BEAKER) (test luxb=486) 45.3 % 40.1-51.0 MEAN CORPUSCULAR VOLUME (BEAKER) (test latc=703) 90.8 fL 79.0-92.2 MEAN CORPUSCULAR HEMOGLOBIN (BEAKER) (test ilhs=423) 29.7 pg 25.7-32.2 MEAN CORPUSCULAR HEMOGLOBIN CONC (BEAKER) (test bagm=679) 32.7 GM/DL 32.3-36.5 RED CELL DISTRIBUTION WIDTH (BEAKER) (test unuy=167) 12.4 % 11.6-14.4 PLATELET COUNT (BEAKER) (test rmov=810) 192 K/CU MM 150-450 MEAN PLATELET VOLUME (BEAKER) (test rtyy=847) 9.9 fL 9.4-12.4 NUCLEATED RED BLOOD CELLS (BEAKER) (test olcd=628) 0 /100 WBC 0-0 NEUTROPHILS RELATIVE PERCENT (BEAKER) (test blif=348) 53 % LYMPHOCYTES RELATIVE PERCENT (BEAKER) (test dtdu=259) 35 % MONOCYTES RELATIVE PERCENT (BEAKER) (test jbhb=810) 9 % EOSINOPHILS RELATIVE PERCENT (BEAKER) (test kzco=836) 2 % BASOPHILS RELATIVE PERCENT (BEAKER) (test vohq=433) 0 % NEUTROPHILS ABSOLUTE COUNT (BEAKER) (test ntci=004) 2.98 K/ L 1.78-5.38 LYMPHOCYTES ABSOLUTE COUNT (BEAKER) (test aicu=519) 1.97 K/ L 1.32-3.57 MONOCYTES ABSOLUTE COUNT (BEAKER) (test fisf=993) 0.51 K/ L 0.30-0.82 EOSINOPHILS ABSOLUTE COUNT (BEAKER) (test tlhm=054) 0.12 K/ L 0.04-0.54 BASOPHILS ABSOLUTE COUNT (BEAKER) (test vgwr=171) 0.02 K/ L 0.01-0.08 IMMATURE GRANULOCYTES-RELATIVE PERCENT (BEAKER) (test rnhw=3397) 0 % 0-1 [id number] 15:33:00* Test Item Value Reference Range Comments HEMOGLOBIN (BEAKER) (test sirw=145) 15.0 GM/DL 13.7-17.5 PLATELET [id number] 15:33:00* Test Item Value Reference Range Comments PLATELET COUNT (BEAKER) (test ixlw=979) 214 K/CU MM 150-450 ANG, CV ACCESS, [id number] 11:19:00Reason for Exam:->Portal vein thrombosisReason for Exam:->Jejunal cancerFINAL REPORT Right Chest Port-A-Cath removal. History: 57-year-old male status post completed chemotherapy Modality: None. Sedation: Moderate sedation was administered. 1 mg of Versed and 50 mcg of fentanyl IV was used for moderate sedation monitored under my direction. Total intra-service time of sedation was 30 minutes. The patient's vital signs were monitored throughout the procedure and recorded in the patient's medical record by the nurse. Flyer Builder: Anirudh Norris MD. Traveling Engineer: MD Fahad (Fellow). Approach: Right anterior chest. Estimated blood loss: < 5 cc. Specimen: None. Technique: The procedure including risks and benefits were explained to the patient, who expressed understanding. After informed written consent was obtained, the patient's Right anterior chest region was prepped and draped in the usual sterile fashion. The skin was anesthetized with lidocaine. Incision was made over the previous incision line. The port was removed with blunt dissection. The pocket was flushed with gentamicin. The skin was closed with Monocryl and Dermabond. The patient tolerated the procedure well and left the department in the same condition. Impression: Successful, uncomplicated removal of a Right Port-A-Cath. Signed: Anirudh Norris Verified Date/Time: 09/26/2017 11:19:28 Reading Location: [place] [address] Angio Body Reading Room /[id number] 07:03:00* Test Item Value Reference Range Comments PROTIME (BEAKER) (test ylhp=866) 12.9 seconds 11.7-14.7 INR (BEAKER) (test zmqi=970) 1.0 <=5.9 PARTIAL THROMBOPLASTIN TIME (BEAKER) (test cfjv=688) 26.3 seconds 22.5-36.0 RECOMMENDED COUMADIN/WARFARIN INR THERAPY RANGESSTANDARD DOSE: 2.0 - 3.0 Inclu rojelio: PROPHYLAXIS for venous thrombosis, systemic embolization; TREATMENT for batsheva ous thrombosis and/or pulmonary embolus.HIGH RISK: Target INR is 2.5-3.5 for pat ients with mechanical heart valves.PLATELET [id number] 06:50:00* Test Item Value Reference Range Comments PLATELET COUNT (BEAKER) (test sqas=609) 139 K/CU MM 150-450 TISSUE [id number] 15:10:00Surgical Pathology Report Case: [id number] Authorizing Provider: Eleno Morrell MD Collected: 01/29/2017 0911 Ordering Location: [facility] PERIOPERATIVE Received: 01/29/2017 1126 SERVICES Pathologist: Irina Cook MD Specimen: Jejunum, Proximal Jejunum with Small Bowel Carcinoid, Stich ahmadi proximal margin The addendum is being issued to report the results of immunohistochemistry (IHC) testing for Mismatch Repair (MMR) Proteins, which has been performed on the small bowel cancer at the request of the oncologist.The diagnosis remains unchanged.IHC testing for all four MMR proteins was performed on selected block A8 with appropriate controls.RESULTSMLH1: Intact nuclear expressionMSH2: Intact nuclear expressionMSH6: Intact nuclear expressionPMS2: Intact nuclear expressionIHC InterpretationNo loss of nuclear expression of MMR proteins: low probability of microsatellite instability-high (MSI-H)# #There are exceptions to the above IHC interpretations. These results should not be considered in isolation, and clinical correlation with genetic counseling is recommended to assess the need for germline testing.[id number], [id number] o3Iejhvdlg electronically signed by Litzy Nieto MD on 02/01/2017 at 11:55 AMThis amendment is issued to correct the number of lymph nodes in the synoptic report. The final report states correctly that four out of seven lymph nodes are positive for metastatic adenocarcinoma, but in the synoptic report the number was reported as 3/7 by mistake. The pathologic stage (PN) is therefore pN2 and not pN1 as previously reported.SMALL BOWEL, PROXIMAL JEJUNUM, SEGMENTAL RESECTION: - WELL TO M ODERATELY DIFFERENTIATED ADENOCARCINOMA, MEASURING 4 CM IN GREATEST DIMENSION , INFILTRATING INTO ATTACHED MESENTERY - LYMPHOVASCULAR INVASION SEEN - FOUR O UT OF SEVEN PERICOLONIC LYMPH NODES ARE POSITIVE FOR METASTATIC ADENOCARCINOM A (4/7) WITH FOCAL EXTRACAPSULAR EXTENSION - PERINEURAL INVASION SEEN - PROXIM AL, DISTAL AND CLOSEST MESENTERIC MARGINS ARE FREE OF TUMOR - SEE SYNOPTIC R EPORT Signing Pathologist Direct Phone Line: [phone] electronicall y signed by Irina Cook MD on 08/07/2017 at 3:10 PM SMALL INTESTINE: Segmental Resection, Pancreaticoduodenectomy (Whipple Resection) (Small Int - A ll Specimens)CLINICAL Clinical History: Not knownSPECIMEN Specimen: Sm all intestine, other than duodenum Specimen: Jejunum Procedure: Segm ental resection Tumor Site: Small intestine, other than duodenum Tumor Site: Jejunum Macroscopic Tumor Perforation: Not identifiedTUMOR Histo logic Type: Adenocarcinoma (not otherwise characterized) Histologic Grade: G2: Moderately differentiatedEXTENT Tumor Size: Greatest dimension (cm): 4 cm Additional Dimension (cm): 3.5 cm Additional Dimension (cm): 1 cm Microscopic Tumor Extension: Tumor invades through the muscularis pro pria into the subserosal adipose tissue or the nonperitonealized kenisha-intestinal soft tissues but does not extend to the serosal surfaceMARGINS Status of Beatris in Involvement - Segmental Resection or Pancreaticoduodenectomy (Whipple): Al l margins uninvolved by invasive carcinoma Distance of Invasive Carcinoma fr om Closest Margin: Specify (mm): 25 mm Specify Margin: Circumferential (radial) or mesenteric margin Proximal Margin: Proximal Margin: Un involved by invasive carcinoma Proximal Margin: Intramucosal carcinoma / adenoma not identified at proximal margin Distal Margin: Distal Margin : Uninvolved by invasive carcinoma Distal Margin: Intramucosal carcino ma / adenoma not identified at distal margin Circumferential (Radial) or Mesen teric Margin: Uninvolved by invasive carcinomaACCESSORY FINDINGS Lymph-Vasc ular Invasion: PresentSTAGE (pTNM) Primary Tumor (pT): pT3: Tumor invade s through the muscularis propria into the subserosa or into the nonperitonealize d perimuscular tissue (mesentery or retroperitoneum) with extension 2 cm or less Regional Lymph Nodes (pN): pN1: Metastasis in 1 to 3 regional lymph nodes Status of Regional Lymph Nodes: Number of Lymph Nodes Examined: Specify: 7 Number of Lymph Nodes Involved: Specify: 4 Distant Metast asis (pM): Not [id number] bowel massProximal jejunum with small bow el carcinoidReceived fresh labeled "proximal jejunum" is a 12.0 cm in length x 8 .0 cm in circumference segment of small bowel. There is a suture marking proxima l. The serosal surface is purple-adamson to red, dusky, focally ragged and exhibits a 1.5 x 1.3 cm irregular area of puckering, 2.5 cm from the proximal resection m argin. The specimen is opened to reveal a 4.0 x 3.5 x 1.0 cm ill-defined, firm, castillo-white, exophytic mass located 3.5 cm from the proximal resection margin and 5.0 cm from the distal resection margin. Sectioning reveals a castillo-white homoge neous firm gritty cut surface. The mass appears to invade into the muscular wall and into the attached mesentery. The mass comes to within 2.5 cm of the deep in ked mesenteric resection margin. The mass communicates with the previously descr ibed area of serosal puckering. The surrounding uninvolved mucosa is pink-adamson, d usky, and unremarkable. Sectioning of the attached mesentery reveals multiple pi nk-adamson possible lymph nodes ranging in size from 0.6 cm to 1.2 cm in greatest di mension. Section code: A1, parallel proximal resection margin; A2, parallel dist al resection margin; A3, closest deep perpendicular mesenteric resection margin to mass; A4-A9, inside sales account representative sections of mass; A10-A12, multiple intact lymph nodes; A13, one bisected lymph node. DB/plPERFORMEDPT/[id number] 07:29:00* Test Item Value Reference Range Comments PROTIME (BEAKER) (test qxhi=168) 12.9 seconds 11.7-14.7 INR (BEAKER) (test cauo=767) 1.0 <=5.9 PARTIAL THROMBOPLASTIN TIME (BEAKER) (test tuis=431) 27.4 seconds 22.5-36.0 RECOMMENDED COUMADIN/WARFARIN INR THERAPY RANGESSTANDARD DOSE: 2.0 - 3.0 Inclu rojelio: PROPHYLAXIS for venous thrombosis, systemic embolization; TREATMENT for batsheva ous thrombosis and/or pulmonary embolus.HIGH RISK: Target INR is 2.5-3.5 for pat ients with mechanical heart valves.PLATELET [id number] 07:21:00* Test Item Value Reference Range Comments PLATELET COUNT (BEAKER) (test fkxi=834) 206 K/CU MM 150-430 [id number] 05:30:00* Test Item Value Reference Range Comments PHOSPHORUS (BEAKER) (test bujy=014) 4.0 mg/dL 2.3-4.7 [id number] 05:30:00* Test Item Value Reference Range Comments MAGNESIUM (BEAKER) (test isls=139) 2.0 mg/dL 1.6-2.6 BASIC METABOLIC [id number] 05:30:00* Test Item Value Reference Range Comments SODIUM (BEAKER) (test lqyg=216) 136 meq/L 136-145 POTASSIUM (BEAKER) (test cyua=932) 4.8 meq/L 3.5-5.1 CHLORIDE (BEAKER) (test kevg=743) 104 meq/L 98-107 CO2 (BEAKER) (test bvie=796) 21 meq/L 22-29 BLOOD UREA NITROGEN (BEAKER) (test uslt=438) 13 mg/dL 7-21 CREATININE (BEAKER) (test ahwu=356) 1.14 mg/dL 0.57-1.25 GLUCOSE RANDOM (BEAKER) (test oilu=044) 103 mg/dL 70-105 CALCIUM (BEAKER) (test ktrz=754) 8.1 mg/dL 8.4-10.2 EGFR (BEAKER) (test nbdj=7919) 66 mL/min/1.73 sq m ESTIMATED GFR IS NOT ACCURATE CREATININE CLEARANCE IN PREDICTING GLOMERULAR FILTRATION RATE. ESTIMATED GFR IS NOT APPLICABLE FOR DIALYSIS PATIENTS. CBC (HEMOGRAM ONLY)2017-01-30 04:36:00* Test Item Value Reference Range Comments WHITE BLOOD CELL COUNT (BEAKER) (test cqyd=118) 9.7 K/ L 4.0-10.0 RED BLOOD CELL COUNT (BEAKER) (test kata=228) 4.43 M/ L 4.20-5.80 HEMOGLOBIN (BEAKER) (test ahoh=584) 12.5 GM/DL 13.0-16.8 HEMATOCRIT (BEAKER) (test toni=098) 41.4 % 40.0-50.0 MEAN CORPUSCULAR VOLUME (BEAKER) (test vtbg=210) 93.4 fL 82.0-98.0 MEAN CORPUSCULAR HEMOGLOBIN (BEAKER) (test eudh=412) 28.2 pg 27.0-33.0 MEAN CORPUSCULAR HEMOGLOBIN CONC (BEAKER) (test dggw=312) 30.2 GM/DL 32.0-36.0 RED CELL DISTRIBUTION WIDTH (BEAKER) (test rogx=533) 11.5 % 10.3-14.2 PLATELET COUNT (BEAKER) (test vsyt=091) 213 K/CU MM 150-430 MEAN PLATELET VOLUME (BEAKER) (test hxqx=525) 7.7 fL 6.5-10.5 NUCLEATED RED BLOOD CELLS (BEAKER) (test oule=494) 0 /100 WBC 0-0 [id number] 14:24:00* Test Item Value Reference Range Comments HEMOGLOBIN (BEAKER) (test lkzo=807) 15.6 GM/DL 13.0-16.8
--- OUTSIDE RECORDS SUMMARY | 2020-02-06 13:28 | XMS REPORT | Summary of Care ---
Author Author [facility] Organization [facility] Address Unknown Phone Unavailable Care Team Providers Care Reverse Unit Operator Name Role Phone Hoang Buckner MD PCP Reason for Visit * Reason Comments Follow Up * Consult, Test & Treat (Routine) Referred By Contact Referred To Contact Status Reason Specialty Diagnoses / Procedures Iain Nichole NP [address], [address] [address] Iain Nichole NP [address], [address] [address] Authorized Surgical Diagnoses Oncology / Malignant neoplasm Hematology and of jejunum Oncology 3 week fu P rocedures IN OFFICE CONSULTATION NEW/ESTAB PATIENT 60 MIN ESTABLISHED OFFICE VISIT Encounter Details Care Team Description Date Type Department Michael Navarro MD [address] [facility] [address] [place] [address] Follow Up 01/12/2020 Office Visit [facility] [address], [address] [address] Allergies No Known Allergiesdocumented as of this encounter (statuses as of 01/12/2020) Medications End Date Status Medication Sig Dispensed Refills Start Date Active carvedilol (COREG) 12.5 Take 25 mg by 0 08/06/201 MG tabletIndications: mouth. 8 Jejunal adenocarcinoma (HCCode) Active omeprazole (PRILOSEC) 20 Take 1 Cap by 30 Cap 3 12/17/201 MG capsule mouth daily. 9 Active zolpidem (AMBIEN) 10 MG Take 1 Tab by 30 Tab 1 tablet mouth nightly 0 as needed for Sleep. Active olanzapine (ZYPREXA) 2.5 Take 1 Tab by 30 Tab 3 MG tabletIndications: mouth 0 Nausea nightly. Active ondansetron (ZOFRAN) 4 MG Take 1 Tab by 90 Tab 3 tabletIndications: Nausea mouth every 6 0 hours as needed for Nausea. 01/12/2020 Discontinued (Reorder) hydrocodone-acetaminophen Take 1 Tab by 180 Tab 0 (NORCO) 10-325 MG per mouth every 4 0 tabletIndications: Cancer hours as associated pain needed for Pain. 01/12/2020 Discontinued fentanyl (DURAGESIC) 25 Place 25 mcg 10 Patch 0 MCG/HR patchIndications: onto the skin 0 Cancer associated pain every 72 hours. documented as of this encounter (statuses as of 01/12/2020) Active Problems Problem Noted Date Insomnia due [...] as of this encounter (statuses as of 01/12/2020) Social History Date Tobacco Use Types Packs/Day [...] Signs Reading Time Taken Comments Vital Sign 137/75 01/12/2020 9:41 AM DISTRICT FIRE MANAGEMENT OFFICER Blood Pressure 81 01/12/2020 9:41 AM DISTRICT FIRE MANAGEMENT OFFICER Pulse 36.5 C (97.7 F) 01/12/2020 9:41 AM DISTRICT FIRE MANAGEMENT OFFICER Temperature - - Respiratory Rate - - Oxygen Saturation - - Inhaled Oxygen Concentration 82.6 kg (182 lb) 01/12/2020 9:41 AM DISTRICT FIRE MANAGEMENT OFFICER Weight 167.6 cm (5' 6") 01/12/2020 9:41 AM DISTRICT FIRE MANAGEMENT OFFICER Height 29.38 01/12/2020 9:41 AM DISTRICT FIRE MANAGEMENT OFFICER Body Mass Index documented in this encounter Patient Instructions * Patient Instructions* Michael Navaror MD - 01/12/2020 9:00 AM DISTRICT FIRE MANAGEMENT OFFICER [facility] SECTION OF ONCOLOGY/HEMATOLOGY [phone] FAX [phone] Please note that all labs and or imaging results will be discussed at the next o ffice visit unless told otherwise. If a problem occurs after normal business hours, over the weekend, or on a holid ay, please contact our office at [phone] and have the physician preparation supervisor pag ed. Patient Instructions: (to be completed before next visit) - follow up with Dr Kim Please don't hesitate to call or to send a [facility] message if you have any quest ions or concerns before your next visit. [employer] messaging should only be used for non-urgent questions. MyChart is not checked after normal business hours, n or on weekends or holidays. Thank you, Michael Navarro MD RICT FIRE MANAGEMENT OFFICER documented in this encounter Progress Notes * Michael Navarro MD - 01/12/2020 9:00 AM DISTRICT FIRE MANAGEMENT OFFICER Oncology Consult Reason for Consultation:jejunal carcinoma with [...] the jejunum. Pertinen t pathologic features include: nmnd-hj-cdlgzeshnu differentiated histology; tumo r involvement in 3 [...] FIRI.However, the patient decided not to pursue therapy.He has good understa nding of implications of his decision. His next CT was 11/03/19 and this did tae w further disease progression. 01/12/2020:He continues with a palliative approach to his cancer care, and he i s also consulting with Dr Dick. His pain is worse. He takes his PRN every 4 h ours OTC. His BM is sluggish, using Dulcolax most days. Cancer Diagnosis: Jejunal adenocarcinoma Cancer Treatment history: [...] file Gets together: Not on file Attends uatsdin service: Not on file Active member of [...] 5' 6" (167.6 cm) Weight - Scale: 182 lb (82.6 kg) Temp: 97.7 F (36.5 C) Temp Source: Oral Pulse: 81 Resting Heart Rate: 81 BP: 137/75 Patient Position: Sitting Cuff Size: regular BP Location: left arm Oxygen Therapy O2 Sat: 97 % O2 Flow Rate: Room Air Height and Weight BSA (Calculated - sq m): 1.96 sq meters BMI (Calculated): 29.4 Predicted Body Weight: 140.65 Body surface area is 1.96 meters squared. Wt Readings from Last 3 Encounters: 01/12/20 182 lb (82.6 kg) 12/15/19 188 lb (85.3 kg) 12/15/19 188 lb 3.2 oz (85.4 kg) ECO General: Alert, well appearing, no acute distress. Abdomen: Bowel sounds are sluggish x4 quadrants.No palpable masses.S/NT/ND . No palpable nodularity Eyes : an-icteric Heart : Regular rate and rhythm, normal S1 and S2. No murmurs, gallops, or rubs. No extra sounds. Lungs : Normal respiratory effort. There is normal air entry with normal breath sounds. No rales, rhonchi, rubs or wheezes. Extr: No varicosities or ulceration. No clubbing, cyanosis, or edema. Skin : Not jaundiced. Labs:All laboratory, radiology, and pathology studies have [...] not a curable recurrence and the p rognosishas been discussed. Chemotherapy, initially with FOLFIRI, is recommend ed.He declines this, and thus focus has been on palliation. Management thus in conjunction with Dr Dick. Have reviewed that his management for pain may be with chemotherapy but he still defers. Plan Jejunal carcinoma, metastatic recurrence - He is deferringchemotherapy; have summarized that the pain may be controlled with chemotherapy This diagnosis and rationale for recommendations were reviewed with the patient to his apparent understanding and agreement. Follow up with Dr Kim[facility] ed to call or MyChart message with anyquestions or concerns in the interim. Michael Navarro MD, FACP [facility] #[id number] Building Riggerwet trimmer [facility] RICT FIRE MANAGEMENT OFFICER documented in this encounter Plan of Treatment Care Team Description Date Type Specialty 12, [facility] [address], [address] [address] Arrived 01/12/2020 Hospital Infusion Center Encounter 12, [facility] [address], [facility] [address] [place] [address] 02/10/2020 Appointment Infusion Center Clover Dick MD [address] [place] [address] [phone] 02/11/2020 Office Visit Palliative Care Jose De Jesus Kim MD [address] [place], [place] [id number] 02/11/2020 Office Visit Hematology and Oncology Health Maintenance [...] (HCCode) - Primary Malignant neoplasm of jejunum Peritoneal metastases (HCCode) Secondary malignant neoplasm of retroperitoneum and peritoneum Liver metastases (HCCode) Secondary malignant neoplasm of liver documented in this encounter Insurance Type Payer Benefit Subscriber ID Effective Phone Address Plan / Dates Group [facility] [employer] [facility] BLUE xxxxxxxxxxxx 2018-P [address] resent [id number] [facility] [facility] - [id number] BCBS documented as of this encounter
[2020-02-06] MEDS ORDERED: ASPIRIN 81 MG CHEW TAB PO ONE (13:30)
[2020-02-06 13:41] LABS: BASOPHILS % 0.2 % (0.0-1.0); EOSINOPHILS # (AUTO) 0.1 (0.0-0.4); HEMATOCRIT 30.9 % (38.2-49.6); HEMOGLOBIN 9.7 g/dL (14.0-18.0); LYMPHOCYTES # (AUTO) 1.3 (1.0-3.2); MEAN CORPUSCULAR HEMOGLOBIN 25.6 pg (28-32); MEAN CORPUSCULAR HGB CONC 31.4 g/dL (31-35); MEAN CORPUSCULAR VOLUME 81.5 fL (81-99); MONOCYTES # (AUTO) 1.6 (0.2-0.8); MONOCYTES % 15.4 % (4.4-11.3); NEUTROPHILS # (AUTO) 7.2 (2.1-6.9); PLATELET COUNT 340 x10e3/uL (140-360); RED BLOOD COUNT 3.79 x10e6/uL (4.3-5.7); RED CELL DISTRIBUTION WIDTH 13.8 % (11.7-14.4)
[2020-02-06 13:58] LABS: INR 1.2
[2020-02-06 13:59] LABS: PARTIAL THROMBOPLASTIN TIME 31.7 seconds (23.8-35.5)
[2020-02-06 14:08] LABS: ALANINE AMINOTRANSFERASE 27 IU/L (0-55); ALBUMIN 2.8 g/dL (3.5-5.0); ALBUMIN/GLOBULIN RATIO 0.6 (0.8-2.0); ALKALINE PHOSPHATASE 132 IU/L (40-150); ANION GAP 14.3 mmol/L (8-16); BLOOD UREA NITROGEN 22 mg/dL (7-26); BUN/CREATININE RATIO 20 (6-25); CALCIUM 9.2 mg/dL (8.4-10.2); CARBON DIOXIDE 26 mmol/L (22-29); CHLORIDE 94 mmol/L (98-107); CREATINE KINASE 142 IU/L (30-200); CREATININE, SERUM 1.12 mg/dL (0.72-1.25); EST GLOMERULAR FILTRATION RATE > 60 ML/MIN (60-); GLUCOSE 267 mg/dL (74-118); MAGNESIUM 2.2 MG/DL (1.3-2.1); POTASSIUM 4.3 mmol/L (3.5-5.1); SODIUM 130 mmol/L (136-145)
[2020-02-06] MEDS ORDERED: SODIUM CHLORIDE 0.9% 1000ML 1,000 ML IV STA (14:28)
--- NOTE | 2020-02-06 14:29 | Diagnostic Imaging Report ---
EXAMINATION: CHEST SINGLE (PORTABLE) INDICATION: Chest pain, shortness of breath. COMPARISON: None FINDINGS: TUBES and LINES: Right chest port with catheter tip terminating at the cavoatrial junction. LUNGS: Low lung volumes. Linear subsegmental atelectasis in the right lower lung. Mild patchy bibasilar opacities. No evidence of lobar consolidation or pulmonary edema. PLEURA: No pleural effusion or pneumothorax. HEART AND MEDIASTINUM: The cardiomediastinal silhouette is unremarkable. BONES AND SOFT TISSUES: No acute osseous lesion. Soft tissues are unremarkable. UPPER ABDOMEN: No free air under the diaphragm. IMPRESSION: Low lung volumes with bibasilar opacities, likely atelectasis. Signed by: Dr. Mariya Collins MD on 02/06/2020 2:26 PM
[2020-02-06] MEDS ORDERED: SODIUM CHLORIDE 0.9% 50ML 50 ML ONE (14:44)
[2020-02-06] MEDS ORDERED: IOPAMIDOL 370 MG/ML 200 ML INFUS..BTL INJ ONE (14:44)
[2020-02-06] MEDS ORDERED: MORPHINE SULFATE INJ 4 MG/ML INJ 1ML ONE (15:24)
[2020-02-06] MEDS: MORPHINE SULFATE INJ 4 MG/ML INJ 1ML IV PRN (15:31)
[2020-02-06] MEDS: ONDANSETRON HCL INJ 2MG/ML 2ML 2 MG/ML VIAL IV PRN (15:50)
[2020-02-06] MEDS: FAMOTIDINE 20 MG/2 ML VIAL IV SCH (15:55)
--- NOTE | 2020-02-06 16:15 | NUR ---
Educated patient and spouse that we are awaiting an inpatient bed for admission. Patient verbalized understanding. Also told patient to notify me via call christy if he needed any assistance.
--- NOTE | 2020-02-06 16:35 | Diagnostic Imaging Report ---
EXAM: CT Chest WITH contrast- Pulmonary Embolism Protocol INDICATION: Chest pain. COMPARISON: None TECHNIQUE: Chest was scanned utilizing a multidetector helical scanner from the lung apex through the level of the diaphragm after administration of IV contrast. Thin section reconstructions were obtained with special concentration on the pulmonary arteries. Coronal and sagittal reformations were obtained. Pulmonary embolism protocol was performed. IV CONTRAST: 100 cc of Isovue 370 RADIATION DOSE: Total DLP: 541.1 mGy*cm Dose modulation, iterative reconstruction, and/or weight based adjustment of the mA/kV was utilized to reduce the radiation dose to as low as reasonably achievable. COMPLICATIONS: None FINDINGS: LINES/ TUBES: Right-sided chest port which terminates at the cavoatrial junction. PULMONARY ARTERIES: No filling defect is identified within the pulmonary arteries to the segmental level. Main pulmonary artery measures 2.0 cm in diameter. LUNGS AND AIRWAYS: The central airways are patent. Linear subsegmental atelectasis at the lung bases. PLEURA: The pleural spaces are clear. HEART AND MEDIASTINUM: The thyroid gland is normal. No mediastinal, hilar or axillary lymphadenopathy. The heart is normal in size. Trace pericardial fluid. Extensive coronary atherosclerosis (left main, LAD). UPPER ABDOMEN: Limited contrast-enhanced views of the upper abdomen. There are multiple hepatic masses, for example a 5.3 cm right hepatic dome mass on series 2, image 78, a 7.9 cm segment 4 mass on image 110, and 5.8 cm left hepatic lobe mass on image 109. Partially visualized left colon anastomosis. Status post cholecystectomy. BONES: The visualized bony thorax is within normal limits. SOFT TISSUES: Unremarkable. IMPRESSION: No evidence of pulmonary embolism. Extensive coronary atherosclerosis (left main, LAD). Multiple hepatic masses, consistent with metastases. Partially seen colonic anastomosis. Recommend clinical correlation, and comparison with prior outside abdominal imaging. Signed by: Dr. Mariya Collins MD on 02/06/2020 4:32 PM
--- NOTE | 2020-02-06 17:16 | NUR ---
Attempted to call report was told that nurse was unaviable at the moment and would have to call back.
[2020-02-06] MEDS ORDERED: HYDROCODON-ACE1 EAC8 PO (18:34)
[2020-02-06] MEDS ORDERED: OLANZAPINE5 MG PO (18:34)
[2020-02-06] MEDS ORDERED: ATORVASTATIN CA10 MG PO (18:35)
[2020-02-06] MEDS ORDERED: CARVEDILOL12.5 MG PO (18:36)
[2020-02-06] MEDS ORDERED: FENTANYL1 EAC1 TD (18:39)
[2020-02-06 18:40] VITALS: BP 116/68
--- NOTE | 2020-02-06 18:41 | NUR ---
CAME TO UNIT FROM ED. IN NO APPARENT DISTRESS. IN THE RESTROOM, SPOKE TO AND RECD HOME MED LIST, SAME PUT IN RECONCILIATION. PATIENT AMBULATED TO THE BED AND I OBSERVED A PATCH TO HIS LEFT SHOULDER, PER TODAY IS THE DAY TO CHANGE PATCH.
[2020-02-06 18:42] VITALS: BP 116/68
[2020-02-06 19:52] LABS: CREATINE KINASE 133 IU/L (30-200)
[2020-02-06 20:00] VITALS: BP 131/70
[2020-02-06 20:33] VITALS: BP 116/68
[2020-02-06 21:55] VITALS: BP 116/68
[2020-02-06] MEDS: OLANZAPINE 5 MG TAB PO SCH (22:06)
[2020-02-07] VITALS (8 sets, daily range): BP systolic 123–143; BP diastolic 69–75
[2020-02-07 05:40] LABS: BASOPHILS % 0.1 % (0.0-1.0); EOSINOPHILS # (AUTO) 0.3 (0.0-0.4); EOSINOPHILS % 2.8 % (0.0-6.0); HEMATOCRIT 30.4 % (38.2-49.6); HEMOGLOBIN 9.5 g/dL (14.0-18.0); LYMPHOCYTES # (AUTO) 1.5 (1.0-3.2); LYMPHOCYTES % 14.5 % (18.0-39.1); MEAN CORPUSCULAR HEMOGLOBIN 25.7 pg (28-32); MEAN CORPUSCULAR HGB CONC 31.3 g/dL (31-35); MEAN CORPUSCULAR VOLUME 82.2 fL (81-99); MONOCYTES # (AUTO) 1.3 (0.2-0.8); MONOCYTES % 12.1 % (4.4-11.3); NEUTROPHILS # (AUTO) 7.4 (2.1-6.9); NEUTROPHILS % 69.9 % (38.7-80.0); PLATELET COUNT 373 x10e3/uL (140-360); RED CELL DISTRIBUTION WIDTH 13.9 % (11.7-14.4)
[2020-02-07 05:58] LABS: ALANINE AMINOTRANSFERASE 24 IU/L (0-55); ALBUMIN 2.5 g/dL (3.5-5.0); ALBUMIN/GLOBULIN RATIO 0.5 (0.8-2.0); ALKALINE PHOSPHATASE 118 IU/L (40-150); ANION GAP 11.5 mmol/L (8-16); BLOOD UREA NITROGEN 17 mg/dL (7-26); BUN/CREATININE RATIO 20 (6-25); CALCIUM 8.9 mg/dL (8.4-10.2); CARBON DIOXIDE 26 mmol/L (22-29); CHLORIDE 99 mmol/L (98-107); CHOL/HDL RATIO 5.2 (3.9-4.7); CHOLESTEROL 119 MD/DL (0-199); CREATININE, SERUM 0.86 mg/dL (0.72-1.25); EST GLOMERULAR FILTRATION RATE > 60 ML/MIN (60-); GLUCOSE 181 mg/dL (74-118); HDL CHOLESTEROL 23 MG/DL (40-60); LDL CHOLESTEROL 77 MG/DL (60-130); POTASSIUM 4.5 mmol/L (3.5-5.1); SODIUM 132 mmol/L (136-145); TRIGLYCERIDES 94 MG/DL (0-149)
[2020-02-07] MEDS: FAMOTIDINE 20 MG/2 ML VIAL IV SCH ×2 (06:39→16:13)
[2020-02-07 07:04] LABS: CREATINE KINASE 132 IU/L (30-200)
[2020-02-07 07:22] LABS: MAGNESIUM 1.9 MG/DL (1.3-2.1); PHOSPHORUS 2.7 MG/DL (2.3-4.7)
--- NOTE | 2020-02-07 07:24 | NUR ---
Consult to Dr. Ribeiro called, message left with Haleigh,she was rude and questioned me why I asked for her full name, she asked to speak to direct care supervisor or charge nurse, she hanged up before Tia got to the phone.
--- NOTE | 2020-02-07 07:30 | NUR ---
Message left for Dr. Sanderson.
[2020-02-07 07:42] LABS: THYROID STIMULATING HORMONE 1.782 uIU/mL (0.350-4.940)
[2020-02-07] MEDS: MORPHINE SULFATE 2 MG/ML SYR 1ML IV PRN ×4 (08:36→23:49)
[2020-02-07] MEDS: ASPIRIN 81 MG ENTERIC COATED PO SCH (08:42)
--- NOTE | 2020-02-07 11:35 | Consultation ---
DATE OF CONSULTATION: Cardiology Consultation REASON FOR CONSULTATION: Chest pain. REQUESTING PHYSICIAN: Dr. Vance. HISTORY OF PRESENT ILLNESS: Mr. Gopal Thomas is a 60-year-old male with a pertinent past medical history of colon cancer and metastasis to his liver and also large intestine. This was diagnosed in 2017. He sought chemo and treatment in 2018. However, since then, he has refused further treatment per his family member. He came into the ER after a 1-day history of chest pain. This chest pain is reported to have started on Saturday evening. He reports the chest pain to come on without any exertion in his substernal area and when he experiences this pain he breaks down in as sweat and does not feel well. Pain is lasting approximately 5-10 minutes. However, has some residual pain. He states after sleeping on Saturday night, on Saturday morning, he was still having this pain and for this reason, he came into the ER. At this moment, he reports that he is not experiencing this pain. He does endorse some dyspnea on exertion and some shortness of breath and also abdominal discomfort, which is chronic for him. Denies any fever, chills, dysuria, or palpitations. PAST SURGICAL HISTORY: Gallbladder removal and also appendectomy. SOCIAL HISTORY: He is and has children. PAST MEDICAL HISTORY: As stated above. REVIEW OF SYSTEMS: As stated above. PHYSICAL EXAMINATION: VITAL SIGNS: Temperature 99.9, pulse 105, respiratory rate 20, blood pressure 132/74, oxygen saturation 95% on room air. GENERAL: Alert and oriented x3. Resting comfortably in the bed. Does not appear to be in any acute distress at the moment. NECK: Supple. No JVD noted. CARDIOVASCULAR: Regular rate and rhythm. No gallops, no murmur. LUNGS: Clear to auscultation throughout. No wheezing. No rhonchi. ABDOMEN: Normoactive bowel sounds. Tender to palpation. EXTREMITIES: Lower extremity, 2+ pulses. No edema. CARDIOVASCULAR MEDICATION: 81 mg aspirin. LABORATORY DATA: WBC 10.53, hemoglobin 9.5, hematocrit 30.4, platelets 373. Sodium 132, potassium 4.5, BUN 17, creatinine 0.86, GFR greater than 60. TSH 1.782. IMAGING DATA: CT of the chest with no pulmonary emboli noted, however, extensive coronary artery disease in the left main LAD. Multiple hepatic masses which are consistent with metastasis. Chest x-ray of the chest with low lung volume with bibasilar opacities, likely atelectasis. TELEMETRY: Normal sinus rhythm. ASSESSMENT: 1. Atypical chest pain. 2. Colon cancer with known metastasis to the liver and spine and large intestine. 3. Coronary artery disease per CT of the lung in his left main and left anterior descending artery. RECOMMENDATIONS: Echocardiogram ordered this morning, awaiting completion and review. We will follow. Maintain on telemetry at all time. Cardiac enzymes have been negative and acute coronary syndrome has been ruled out at this time. The patient will require ischemic evaluation and heart cath. Address oncologic issue. We will continue to monitor this patient very closely. Dictated by Gabby Watts NP MD EPHRAIM ElV/LOREE /[id number]
[2020-02-07 11:36] LABS: CREATINE KINASE 127 IU/L (30-200)
[2020-02-07] MEDS: OLANZAPINE 5 MG TAB PO SCH (21:01)
[2020-02-07] MEDS ORDERED: ATORVASTATIN 10 MG TAB PO SCH (21:20)
[2020-02-08] VITALS: BP 141/83
[2020-02-08] MEDS: MORPHINE SULFATE 2 MG/ML SYR 1ML IV PRN ×2 (03:40→08:44)
[2020-02-08 04:00] VITALS: BP 118/59
[2020-02-08] MEDS: FAMOTIDINE 20 MG/2 ML VIAL IV SCH ×2 (05:28→16:54)
[2020-02-08 05:31] LABS: BASOPHILS % 0.2 % (0.0-1.0); EOSINOPHILS # (AUTO) 0.2 (0.0-0.4); EOSINOPHILS % 1.7 % (0.0-6.0); HEMATOCRIT 30.9 % (38.2-49.6); HEMOGLOBIN 9.6 g/dL (14.0-18.0); LYMPHOCYTES # (AUTO) 2.4 (1.0-3.2); LYMPHOCYTES % 18.8 % (18.0-39.1); MEAN CORPUSCULAR HEMOGLOBIN 25.5 pg (28-32); MEAN CORPUSCULAR HGB CONC 31.1 g/dL (31-35); MONOCYTES # (AUTO) 1.7 (0.2-0.8); MONOCYTES % 13.7 % (4.4-11.3); NEUTROPHILS # (AUTO) 8.2 (2.1-6.9); PLATELET COUNT 432 x10e3/uL (140-360); RED BLOOD COUNT 3.77 x10e6/uL (4.3-5.7)
[2020-02-08 05:47] LABS: ANION GAP 14.5 mmol/L (8-16); BLOOD UREA NITROGEN 14 mg/dL (7-26); BUN/CREATININE RATIO 14 (6-25); CALCIUM 9.2 mg/dL (8.4-10.2); CARBON DIOXIDE 27 mmol/L (22-29); CHLORIDE 100 mmol/L (98-107); CREATININE, SERUM 0.99 mg/dL (0.72-1.25); EST GLOMERULAR FILTRATION RATE > 60 ML/MIN (60-); GLUCOSE 124 mg/dL (74-118); POTASSIUM 4.5 mmol/L (3.5-5.1); SODIUM 137 mmol/L (136-145)
--- NOTE | 2020-02-08 07:10 | NUR ---
Patient condition throughout the night was stable, patient endorsed to next shift for continuity of care.
[2020-02-08 07:52] VITALS: BP 134/73
[2020-02-08 08:09] VITALS: BP 134/73
[2020-02-08] MEDS ORDERED: IRON DEXTRAN INJ 50 MG in SODIUM CHLORIDE 0.9% 100 ML 100 ML IV ONE (08:15)
[2020-02-08] MEDS: ASPIRIN 81 MG ENTERIC COATED PO SCH (08:44)
[2020-02-08] MEDS: ONDANSETRON HCL INJ 2MG/ML 2ML 2 MG/ML VIAL IV PRN (08:44)
[2020-02-08] MEDS: MORPHINE SULFATE INJ 4 MG/ML INJ 1ML IV PRN (08:44)
[2020-02-08 09:38] LABS: EOSINOPHILS % (MANUAL) 1 % (0-7); LYMPHOCYTES % (MANUAL) 20 % (19-48); MONOCYTES % (MANUAL) 19 % (3.4-9.0); NEUTROPHILS % (MANUAL) 60 % (40-74)
--- NOTE | 2020-02-08 10:59 | Consultation ---
DATE OF CONSULTATION: 02/08/2020 PRIMARY CARE DOCTOR: Dr. Buckner. HISTORY OF PRESENT ILLNESS: Mr. Herron is a 60-year-old gentleman with a past medical history include colon cancer, stage IV disease, diagnosed and treated in 2017 and 2018. He was followed with a [facility]. Since 2018, he is not on any medication. The patient currently in the hospital with worsening chest pain, shortness of breath, fatigue, lethargic, and tiredness. He is also complaining of [id number] abdominal pain. No fever or chills reported. Workup is consistent with multiple hepatic masses, consistent with metastasis. Chest x-ray shows low volume with bibasilar opacities. The patient is currently in hospital for further management. Hemoglobin was 9.5 at admission. PAST MEDICAL HISTORY: Colon cancer, stage IV disease. SOCIAL HISTORY: and lives with family. REVIEW OF SYSTEMS: As per HPI. PAST SURGICAL HISTORY: Cholecystectomy and appendectomy. PHYSICAL EXAMINATION: GENERAL: Alert, awake, communicative. HEENT: Normocephalic and atraumatic. Sclerae pink. Conjunctivae are clear. NECK: Supple. CHEST: Decreased breath sounds at the bases. ABDOMEN: Soft and nontender. EXTREMITIES: No edema. LABS AND IMAGING: Reviewed. ASSESSMENT/PLAN: The patient with a history of multiple medical conditions includes stage IV colon cancer. Stage IV colon cancer with metastatic to bones and liver. Discussed in detail with the patient. The patient was on treatment, but stopped taking treatment for almost more than one year. Discussed about the stage, prognosis, and options. The patient is willing to restart treatment, but he would like to discuss with family. We will communicate with the patient. The patient will benefit with palliative chemo. We also try to get more records from [facility]. We will monitor the patient closely. Continue nutrition support. Pain management. We will follow. Anemia, likely iron deficiency anemia. We will check a ferritin level. We will start the patient on iron treatment. We will monitor patient closely. MD DEDRA Duff/LOREE /[id number]
[2020-02-08 11:06] VITALS: BP 146/70
[2020-02-08] MEDS: HYDROCODONE/APAP 10MG-325MG TAB PO PRN ×2 (12:01→16:55)
--- NOTE | 2020-02-08 12:50 | Progress Note ---
DATE: Cardiology Progress Note SUBJECTIVE: The patient denies any chest pain, occasional episodes of shortness of breath, mainly reports right upper quadrant discomfort. OBJECTIVE: VITAL SIGNS: Temperature is 99, heart rate is 86, respirations are 18, blood pressure is 146/70, oxygen saturation 95% on room air. GENERAL: Well-appearing man in no apparent distress. Alert and oriented x3. CARDIOVASCULAR: Regular rate and rhythm. LUNGS: Clear to auscultation. ABDOMEN: Soft, nontender, nondistended. EXTREMITIES: No clubbing, cyanosis, edema. MEDICATIONS: Reviewed. LABORATORY DATA: Reviewed. ASSESSMENT: 1. Atypical chest pain. 2. Shortness of breath. 3. Colon cancer with metastasis. 4. Coronary artery disease. PLAN: RECOMMENDATIONS: His echocardiogram showed preserved left ventricular systolic function. Given that he has metastatic disease with episodes of bleeding into his stool, we will not proceed with cardiac catheterization. We will order a Lexiscan nuclear stress test to evaluate for significant ischemia. Otherwise, we will continue to follow along with you. Jose De Jesus Benites DO BM/MODL /[id number]
--- NOTE | 2020-02-08 15:05 | NUR ---
Patient states "I do not want to do stress test at this time." Paged to notify of message. Notified Prince Ulysses HENSLEY of situation.
[2020-02-08 15:32] VITALS: BP 115/65
[2020-02-08] MEDS ORDERED: ZYPREXA5 MG PO (15:40)
[2020-02-08] MEDS ORDERED: FENTANYL 50 MCG/HR PATCH TD SCH (16:00)
--- NOTE | 2020-02-08 16:30 | NUR ---
Repaged to notify patient does not want stress test. Awaiting for call back.
[2020-02-08] MEDS ORDERED: CARVEDILOL 12.5 MG TAB PO SCH (17:00)
--- NOTE | 2020-02-08 17:40 | NUR ---
Repaged to notify patient does not want to have stress test. Awaiting call back.
--- NOTE | 2020-02-08 17:51 | NUR ---
Notified Prince Ulysses HENSLEY I have not received call back from . Per Prince Ulysses HENSLEY "okay to discharge patient."
--- NOTE | 2020-02-08 18:20 | NUR ---
Left IV discontinued. No signs of infiltration noted. 2x2 gauze and coban placed. Taken via wheelchair by PCT to personal car. Accompanied by . AAOX3 to time, person, place. Respirations even and unlabored. Denies chest pain. Discharge instructions, rx, and all personal belongings taken with patient.
--- NOTE | 2020-02-08 19:56 | Discharge Summary ---
PERTINENT HISTORY AND PHYSICAL FINDINGS: The patient's chief complaint was chest pain. Mr. Thomas is a 60-year-old male, who was admitted on 02/06/2020 via the emergency department with central and left chest pain, moderate in severity at the maximum without contributing or alleviating factors. He has experienced some shortness of breath and diaphoresis. Systolic blood pressure 267 per the while at home. These signs and symptoms started a few days prior to admission. The patient's signs and symptoms were improved some on February 06 with a temperature 99.4 in the morning. PAST MEDICAL HISTORY: Liver cancer, colon cancer, hypertension, diabetes mellitus, hyperlipidemia, uses fentanyl patches, refusing chemotherapy at this point as his condition is terminal. Cancer in the small intestine was discovered first according to the . PAST SURGICAL HISTORY: Includes abdominal surgery, HIPEC/chemotherapy washout. FAMILY HISTORY: His father had cancer of some unknown type. Daughter has lupus. SOCIAL HISTORY: He denied any use of tobacco, alcohol, or illicit drugs. ALLERGIES: NO KNOWN ALLERGIES. ADMITTING DIAGNOSES: 1. Chest pain with coronary artery disease of the left main and left anterior descending arteries. 2. Liver cancer with hematochezia, colon cancer, history of hyperthermic intraperitoneal chemotherapy surgery. 3. Anemia, likely secondary to liver cancer with hematochezia, colon cancer, history of hyperthermic intraperitoneal chemotherapy surgery. 4. Acute hyponatremia. 5. Controlled hypertension. 6. Controlled type 2 diabetes mellitus. 7. Unintentional weight loss of 20 pounds in the past few months, likely due to liver cancer with hematochezia, colon cancer, history of hyperthermic intraperitoneal chemotherapy surgery. 8. Hyperlipidemia. 9. Bibasilar atelectasis. 10. Port-A-Cath in situ. DISCHARGE DIAGNOSES: 1. Chest pain with coronary artery disease of the left main and left anterior descending arteries. 2. Stage IV colon cancer with metastasis to the bone and liver with hematochezia and history of hyperthermic intraperitoneal chemotherapy surgery. 3. Anemia, likely secondary stage IV colon cancer with metastasis to the bone and liver with hematochezia and history of hyperthermic intraperitoneal chemotherapy surgery. 4. Acute hyponatremia, resolved. 5. Controlled hypertension. 6. Controlled type 2 diabetes mellitus. 7. Unintentional weight loss of 20 pounds in the past few months, likely due to stage IV colon cancer with metastasis to the bone and liver with hematochezia and history of hyperthermic intraperitoneal chemotherapy surgery. 8. Hyperlipidemia. 9. Bibasilar atelectasis. 10. Port-A-Cath in situ. Admitting labs WBC 10.27, hemoglobin 9.7, hematocrit 30.9, platelets 340. Sodium 130. His cardiac biomarkers were within normal limits. Hemoglobin A1c was 7.1%. TSH 1.782. Dr. Sanderson with Cardiology as well as Dr. Juanpablo Ribeiro with his Oncology Hematology were consulted. The patient's chest pain dissipated. Morphine was essentially ineffective for his pain. He was put back on his fentanyl patch and Titus. Per oncologist note the patient would benefit from palliative chemotherapy. In speaking with the patient and his , although followup appoint with Dr. Ribeiro is invited. The patient will likely follow up with Dr. Navarro with [facility]. The patient also sees Dr. Clover Dick with Pain Management. The has already spoken to Pain Management office about possible hospice. The patient does have an appointment on with both Pain Management and [facility]. His ferritin level is 778.59, and carcinoembryonic antigen is pending. Fingerstick blood glucose levels today 188, 189. Sodium 137, potassium 4.5, chloride 100, CO2 of 27, BUN 14, creatinine 0.99, glucose 124. WBCs 12.5, hemoglobin 9.6, hematocrit 30.9, platelets 432. The patient declined a Lexiscan nuclear stress test to evaluate for significant ischemia. Currently complains of abdominal pain of 4/10 on a 0-10 pain scale and states that the Titus that he received was more beneficial than the morphine. We will continue his home regimen of Titus 10 mg p.o. q.4 hours and fentanyl patch 50 mcg every 72 hours. Per his he will likely decline chemotherapy as he has had friends, who have had it and it made them more sick. Continue on 2000 calorie ADA diet. Activity level as tolerated. Follow up with PCP Dr. Hoang Buckner in 1-2 weeks. Dictated by Golden Bender, SHELLIE Iván Vance MD HWP/MODL /[id number]
[2020-02-08] MEDS ORDERED: ATORVASTATIN 10 MG TAB PO SCH (21:00)
[2020-02-08] MEDS ORDERED: OLANZAPINE 5 MG TAB PO SCH (21:00)
== END 2020-02-08 18:29 | disposition home or self-care (01) ==
LOC: ER 13:24 → ERHOLD 15:31 → MED/SURG2 18:26
PROVIDERS: ADMIT Internal Medicine; ATTEND Internal Medicine
DX: R07.89 Other chest pain (principal); I25.10 Atherosclerotic heart disease of native coronary artery without angina pectoris; R63.4 Abnormal weight loss; Z68.27 Body mass index [BMI] 27.0-27.9, adult; E78.5 Hyperlipidemia, unspecified; E11.9 Type 2 diabetes mellitus without complications; E87.1 Hypo-osmolality and hyponatremia; D63.0 Anemia in neoplastic disease; Z85.038 Personal history of other malignant neoplasm of large intestine; C18.9 Malignant neoplasm of colon, unspecified; C78.7 Secondary malignant neoplasm of liver and intrahepatic bile duct
CPT/HCPCS: 36415 ×3; 71045; 71260; 80048; 80053 ×2; 80061; 82378; 82550 ×2; 82553 ×2; 82728; 82948; 83036; 83735 ×2; 83880; 84100; 84443; 84484 ×2; 85025 ×3; 85610; 85730; 93005; 93306; 99284; G0378 ×3; J2270 ×4; J2405 ×2; J7030; Q9967